=== PATIENT | female | born 1930 | race Caucasian/White ===

== ENCOUNTER 2016-09-03 10:36 | Inpatient (IN) | payer OTHER, MEDICARE ==
[2016-09-03] VITALS (11 sets, daily range): BP systolic 98–135; BP diastolic 56–85; PULSE 74–105; RESP 16–20; TEMP 97.4–98; O2SAT 89–97
[~2016-09-03] VITALS: Ht 177.8 cm; Wt 120.0 kg
[~2016-09-03 10:36] MED LIST: ATOR20TA42 PO; BISA10R PR; LEVA750T PO; LEVE500 PO; MECL-62 PO; MIRTA15 PO; WARF2 PO; Z.0.OXYGENDME NC; Z.0.WALKERFRONT
--- NOTE | 2016-09-03 11:13 | PD ---
HPI Chief Complaint: Injury Time Seen by Provider: 10:56 Travel History International Travel<30 days: No Contact w/Intl Traveler<30days: No Traveled to known affect area: No History of Present Illness HPI 85-year-old female complains of right arm pain and right anterior chest wall pain. Patient fell a week ago. Patient status post mechanical aortic valve replacement. Patient is on Coumadin. Patient has persistent pain in the right arm since then. Patient noticed some bruising on the right anterior chest wall however has increasing swelling for the past 2 days. Patient denies any shortness of breath. Patient denies any headache. Patient denies any neck pain. Patient denies any abdominal pain. Patient denies any focal weakness or numbness of extremity. Patient was started on Cefdinir 300 mg twice a day for the past 4 days for an upper respiratory infection. Patient denies any fever chills. EMS was called this morning. Patient was found to have expiratory wheezes. Patient was given albuterol treatment 2 and Solu-Medrol [address] to the ED. PFSH Past Medical History Hx Anticoagulant Therapy: Yes (WARFARIN) Arthritis: Yes Asthma: No Autoimmune Disease: No Blood Disorders: No Anxiety: No Depression: No Heart Rhythm Problems: No Cancer: No Cardiac Catheterization: Yes Cardiovascular Problems: Yes (HEART VALVE REPLACEMENT) High Cholesterol: No Chemotherapy: No Chest Pain: No Congestive Heart Failure: No COPD: No Cerebrovascular Accident: Yes (TIA) Dementia: Yes Diabetes: No Diminished Hearing: No Endocrine: No Gastrointestinal Disorders: No GERD: No Glaucoma: No Genitourinary: No Headaches: Yes (OCCASIONALY) Hepatitis: No Hiatal Hernia: No Hypertension: No Immune Disorder: No Implanted Vascular Access Dvce: No Kidney Stones: No Musculoskeletal: Yes Neurologic: Yes Psychiatric: No Reproductive: No Respiratory: Yes Migraines: No Myocardial Infarction: No Radiation Therapy: No Renal Failure: No Seizures: No Sickle Cell Disease: No Sleep Apnea: No Thyroid Disease: No Ulcer: No Tetanus Vaccination: Unknown Influenza Vaccination: Yes ?: Not Menopausal: Yes : 1 Para: 1 Past Surgical History Abdominal Surgery: No AICD: No Appendectomy: Yes Arteriovenous Shunt: No Cardiac Surgery: Yes (HEART VALVE REPLACEMENT) Cholecystectomy: No Ear Surgery: No Endocrine Surgery: No Eye Surgery: No Genitourinary Surgery: No Gynecologic Surgery: No Insulin Pump: No Joint Replacement: No Oral Surgery: No Pacemaker: No Thoracic Surgery: No Valve Replacement: Yes Other Surgery: Yes Social History Alcohol Use: No Tobacco Use: No Substance Use: No Allergies-Medications (Allergen,Severity, Reaction): Coded Allergies: No Known Allergies (Verified , 01/02/16) Reported Meds & Prescriptions Reported Meds & Active Scripts Active Reported Keppra (Levetiracetam) 500 Mg Tab 500 Mg PO BID Meclizine 25 (Meclizine HCl) 25 Mg Tab 25 Mg PO TID PRN Mirtazapine 7.5 Mg Tab 7.5 Mg PO HS Coumadin (Warfarin) 2 Mg Tab 2 Mg PO DAILY@1600 Cefdinir 300 Mg Cap 300 Mg PO Q12HR Gabapentin 300 Mg Cap 300 Mg PO HS Review of Systems General / Constitutional: No: Fever Eyes: No: Visual changes HENT: No: Headaches Cardiovascular: No: Chest Pain or Discomfort Respiratory: No: Shortness of Breath Gastrointestinal: No: Abdominal Pain Genitourinary: No: Dysuria Musculoskeletal: Positive: Pain Skin: No Rash Neurologic: No: Weakness Psychiatric: No: Depression Endocrine: No: Polydipsia Hematologic/Lymphatic: No: Easy Bruising Physical Exam Narrative GENERAL: Well-nourished, well-developed patient. SKIN: Warm and dry. HEAD: Normocephalic. EYES: No scleral icterus. No injection or drainage. NECK: Supple, trachea midline. No JVD or lymphadenopathy. CARDIOVASCULAR: Regular rate and rhythm without murmurs, gallops, or rubs. RESPIRATORY: Breath sounds equal bilaterally. No accessory muscle use. Patient has mild expiratory wheezes bilaterally. GASTROINTESTINAL: Abdomen soft, non-tender, nondistended. MUSCULOSKELETAL: Patient has ecchymosis with soft tissue swelling right anterior chest wall. No crepitus no deformity noted. Breath sounds equal bilaterally. BACK: Nontender without obvious deformity. No CVA tenderness. Neurologic exam: Patient's awake and alert oriented to name. Patient has decrease in range of motion of the right arm secondary to pain. No obvious local neurological deficit otherwise. Data Data Last Documented VS Vital Signs Date Time Temp Pulse Resp B/P Pulse Ox O2 Delivery O2 Flow Rate FiO2 09/03/16 11:30 95 Nasal Cannula 2 09/03/16 10:57 97.4 95 20 135/59 Orders Electrocardiogram (09/03/16 11:03) Complete Blood Count With Diff (09/03/16 11:03) Comprehensive Metabolic Panel (09/03/16 11:03) Prothrombin Time / Inr (Pt) (09/03/16 11:03) Act Partial Throm Time (Ptt) (09/03/16 11:03) Urinalysis - C+S If Indicated (09/03/16 11:03) Cath For Specimen (09/03/16 11:03) Chest, Single Ap (09/03/16 11:03) Iv Access Insert/Monitor (09/03/16 11:03) Ecg Monitoring (09/03/16 11:03) Oximetry (09/03/16 11:03) Forearm (2vws) (09/03/16 11:03) Humerus (Min 2vws) (09/03/16 11:03) Ct Thorax/ Chest Wo Iv Contras (09/03/16 11:03) Phytonadione Inj (Vitamin K Inj) (09/03/16 12:15) Sodium Chlor 0.9% 1000 Ml Inj (Ns 1000 M (09/03/16 12:30) Labs Laboratory Tests Test 09/03/16 09/03/16 11:15 11:45 White Blood Count 13.7 TH/MM3 Red Blood Count 3.00 MIL/MM3 Hemoglobin 8.3 GM/DL Hematocrit 25.7 % Mean Corpuscular Volume 85.5 FL Mean Corpuscular Hemoglobin 27.7 PG Mean Corpuscular Hemoglobin 32.4 % Concent Red Cell Distribution Width 14.1 % Platelet Count 299 TH/MM3 Mean Platelet Volume 9.8 FL Neutrophils (%) (Auto) 89.3 % Lymphocytes (%) (Auto) 5.0 % Monocytes (%) (Auto) 5.3 % Eosinophils (%) (Auto) 0.0 % Basophils (%) (Auto) 0.4 % Neutrophils # (Auto) 12.3 TH/MM3 Lymphocytes # (Auto) 0.7 TH/MM3 Monocytes # (Auto) 0.7 TH/MM3 Eosinophils # (Auto) 0.0 TH/MM3 Basophils # (Auto) 0.1 TH/MM3 CBC Comment DIFF FINAL Differential Comment Prothrombin Time 129.2 SEC Prothromb Time International 10.6 RATIO Ratio Activated Partial 70.6 SEC Thromboplast Time Sodium Level 135 MEQ/L Potassium Level 3.8 MEQ/L Chloride Level 98 MEQ/L Carbon Dioxide Level 25.2 MEQ/L Anion Gap 12 MEQ/L Blood Urea Nitrogen 41 MG/DL Creatinine 1.96 MG/DL Estimat Glomerular Filtration 24 ML/MIN Rate Random Glucose 203 MG/DL Calcium Level 7.7 MG/DL Total Bilirubin 0.6 MG/DL Aspartate Amino Transf 40 U/L (AST/SGOT) Alanine Aminotransferase 32 U/L (ALT/SGPT) Alkaline Phosphatase 69 U/L Total Protein 6.8 GM/DL Albumin 2.6 GM/DL Urine Color YELLOW Urine Turbidity HAZY Urine pH 5.0 Urine Specific [place] 1.024 Urine Protein TRACE mg/dL Urine Glucose (UA) NEG mg/dL Urine Ketones NEG mg/dL Urine Occult Blood SMALL Urine Nitrite NEG Urine Bilirubin NEG Urine Urobilinogen LESS THAN 2.0 MG/DL Urine Leukocyte Esterase NEG Urine RBC 2 /hpf Urine WBC LESS THAN 1 /hpf Urine Squamous Epithelial <1 /hpf Cells Urine Bacteria RARE /hpf Urine Hyaline Casts 1 /lpf Urine Mucus FEW /lpf Microscopic Urinalysis Comment CULT NOT INDICATED MDM Medical Decision Making Medical Screen Exam Complete: Yes Emergency Medical Condition: Yes Interpretation(s) 12:20 PM. Last Impressions Radius/Ulna X-Ray 09/03/161102 Signed Impressions: Service Date/Time: Saturday, September 03, 2016 11:28 - CONCLUSION: No acute bony injury Cirilo Christensen MD Humerus X-Ray 09/03/161102 Signed Impressions: Service Date/Time: Saturday, September 03, 2016 11:25 - CONCLUSION: Unremarkable examination of the right humerus. Cirilo Christensen MD Chest X-Ray 09/03/161102 Signed Impressions: Service Date/Time: Saturday, September 03, 2016 11:24 - CONCLUSION: No acute disease. Orville Dominguez Jr., MD 12:21 PM. CBC WBC 13.7. Hemoglobin 8.3 hematocrit 25.7. 89 neutrophil. Sodium 135. BUN 41. Creatinine 1.96. GFR 24. Glucose 203. Calcium 7.7. INR 10.6. UA is negative. Last Impressions Radius/Ulna X-Ray 09/03/161102 Signed Impressions: Service Date/Time: Saturday, September 03, 2016 11:28 - CONCLUSION: No acute bony injury Cirilo Christensen MD Humerus X-Ray 09/03/161102 Signed Impressions: Service Date/Time: Saturday, September 03, 2016 11:25 - CONCLUSION: Unremarkable examination of the right humerus. Cirilo Christensen MD Chest X-Ray 09/03/161102 Signed Impressions: Service Date/Time: Saturday, September 03, 2016 11:24 - CONCLUSION: No acute disease. Orville Dominguez Jr., MD Chest CT 09/03/161102 Signed Impressions: Service Date/Time: Saturday, September 03, 2016 12:39 - CONCLUSION: Large right breast/chest wall mass may simply be large hematoma, however underlying neoplastic process should additionally be considered and either close clinical and mammographic followup or additional short-term evaluation with pre-and postcontrast MRI may be beneficial. 5.7 cm aneurysm of the ascending thoracic aorta. Ganga Michael MD Differential Diagnosis Differential diagnosis including contusion, fracture, dislocation, hematoma, hemopneumothorax. Narrative Course 85-year-old female with right arm injury and anterior wall injury status post fall. Patient is on Coumadin. Vitamin K 10 mg subcutaneous given. Diagnosis Primary Impression: Coumadin toxicity Qualified Code: T45.511A - Coumadin toxicity, accidental or unintentional, initial encounter Additional Impressions: Chest wall hematoma Qualified Code: S20.211A - Chest wall hematoma, right, initial encounter Contusion of right arm Qualified Code: S40.021A - Contusion of right arm, initial encounter Renal insufficiency Admitting Information Admitting Physician Requests: Admit Chintan Arechiga MD Sep 03, 2016 11:13
[2016-09-03 11:24] LABS: AUTOMATED NEUTROPHIL # 12.3 TH/MM3 (1.8-7.7); BASOPHIL # 0.1 TH/MM3 (0-0.2); BASOPHIL % 0.4 % (0.0-2.0); HEMATOCRIT 25.7 % (35.0-46.0); HEMO FLAGS DIFF FINAL; LYMPHOCYTE # 0.7 TH/MM3 (1.0-4.8); MEAN CELL VOLUME 85.5 FL (80.0-100.0); MEAN CORPUSCULAR HEMOGLOBIN 27.7 PG (27.0-34.0); MEAN CORPUSCULAR HGB CONC 32.4 % (32.0-36.0); MONO % 5.3 % (0.0-8.0); NEUT % 89.3 % (16.0-70.0); PLATELET COUNT 299 TH/MM3 (150-450); RED CELL DISTRIBUTION WIDTH 14.1 % (11.6-17.2); WHITE BLOOD COUNT 13.7 TH/MM3 (4.0-11.0)
--- NOTE | 2016-09-03 11:37 | RADRPT ---
EXAM DATE/TIME: 09/03/2016 11:24 [facility] COMPARISON: CHEST SINGLE AP, January 05, 2016, 9:38. INDICATIONS : Fell 2 weeks ago, bruising and swelling right breast. MEDICAL HISTORY : Myocardial infarction. SURGICAL HISTORY : CABG. ENCOUNTER: Initial ACUITY: 2 weeks PAIN SCORE: 10/10 LOCATION: Right chest FINDINGS: A single view of the chest demonstrates the lungs to be symmetrically aerated without evidence of mas s, infiltrate or effusion. The heart is at the upper limits of normal in terms of size. New sternotom y wires noted. CONCLUSION: No acute disease. Orville Dominguez Jr., MD on September 03, 2016 at 11:35 Board Certified Radiologist. This report was verified electronically.
[2016-09-03 11:41] LABS: ANION GAP 12 MEQ/L (5-15); AST (GOT) 40 U/L (15-37); BICARBONATE 25.2 MEQ/L (21.0-32.0); BLOOD UREA NITROGEN 41 MG/DL (7-18); CHLORIDE 98 MEQ/L (98-107); GLOMERULAR FILTRATION RATE 24 ML/MIN (>89); POTASSIUM 3.8 MEQ/L (3.5-5.1); SODIUM (NA) 135 MEQ/L (136-145)
[2016-09-03 11:44] LABS: ALKALINE PHOSPHATASE 69 U/L (45-117); ALT (GPT) 32 U/L (10-53); TOTAL BILIRUBIN ADULT 0.6 MG/DL (0.2-1.0)
[2016-09-03 11:51] LABS: PROTHROMBIN TIME - PATIENT 129.2 SEC (9.8-11.6)
--- NOTE | 2016-09-03 11:51 | RADRPT ---
EXAM DATE/TIME: 09/03/2016 11:28 [facility] COMPARISON: No previous studies available for comparison. INDICATIONS : Fell 2 wks ago pain with rotation right forearm. Unable to remove bracelets do not fit over patients hand. MEDICAL HISTORY : None. SURGICAL HISTORY : None. ENCOUNTER: Initial ACUITY: 2 weeks PAIN SCORE: 8/10 LOCATION: Right forearm FINDINGS: Two view examination of the right forearm demonstrates no evidence of fracture or dislocation. Bony mineralization is normal. The soft tissue structures are intact. CONCLUSION: No acute bony injury Cirilo Christensen MD on September 03, 2016 at 11:49 Board Certified Radiologist. This report was verified electronically.
--- NOTE | 2016-09-03 11:51 | RADRPT ---
EXAM DATE/TIME: 09/03/2016 11:25 [facility] COMPARISON: No previous studies available for comparison. INDICATIONS : Fell 2 wks ago, pain right shoulder, with bruising. MEDICAL HISTORY : None. SURGICAL HISTORY : None. ENCOUNTER: Initial ACUITY: 2 weeks PAIN SCORE: 8/10 LOCATION: Right humerus. FINDINGS: Two view examination of the right humerus demonstrates no evidence of fracture or dislocation. Bony mineralization is normal. The soft tissue structures are intact. CONCLUSION: Unremarkable examination of the right humerus. Cirilo Christensen MD on September 03, 2016 at 11:50 Board Certified Radiologist. This report was verified electronically.
[2016-09-03 12:07] LABS: INTERNATIONAL NORMALIZED RATIO 10.6 RATIO
[2016-09-03 12:08] LABS: APTT (PATIENT) 70.6 SEC (24.3-30.1)
[2016-09-03 12:09] LABS: BACTERIA, URINE RARE /hpf; BLOOD, URINE SMALL (NEG); COMMENT (UR) CULT NOT INDICATED; CULTURE IF INDICATED CULT NOT INDICATED; GLUCOSE,URINE NEG (NEG); HYALINE CAST, URINE 1 /lpf (RARE); KETONE, URINE NEG (NEG); MUCUS URINE FEW /lpf (OCC); NITRITE,URINE NEG (NEG); SQUAMOUS EPITHELIAL CELL URINE <1 /hpf (0-5); URINE COLOR YELLOW (YELLW/STRAW)
[2016-09-03] MEDS ORDERED: PHYTONADIONE 10 MG/ML VIAL SQ ONE (12:15)
[2016-09-03] MEDS ORDERED: SODIUM CHLOR 0.9% 1000 ML INJ 1,000 ML IV SCH (12:30)
--- NOTE | 2016-09-03 13:13 | RADRPT ---
EXAM DATE/TIME: 09/03/2016 12:39 [facility] COMPARISON: No previous studies available for comparison. INDICATIONS : Trauma, fell 1 week ago. Bruising and swelling on right chest. RADIATION DOSE: 5.31 CTDIvol (mGy) MEDICAL HISTORY : Cardiovascular disease. Stroke Dementia. SURGICAL HISTORY : None. ENCOUNTER: Initial ACUITY: 1 day PAIN SCALE: 7/10 LOCATION: Right chest TECHNIQUE: Volumetric scanning of the chest was performed. Using automated exposure control and adjustment of t he mA and/or kV according to patient size, radiation dose was kept as low as reasonably achievable to obtain optimal diagnostic quality images. FINDINGS: There is an enormous mass in the right breast abutting the anterior chest wall and appearing to displ mandy the pectoralis musculature anteriorly. The mass measures 17 x 8 x 15 cm (sagittal x AP x transver se). Internal density is markedly heterogeneous. There do appear to be some areas of density layering which would be consistent with hematoma. The surrounding soft tissues are moderately indurated throu ghout the right chest and into the visualized upper abdomen and flank. There is no evidence of rib fr acture or chest wall destructive change. The contralateral left breast is unremarkable. In the lungs, occasional reticular parenchymal density and tree in bud densities present, mainly in t he right middle lobe which is likely inflammatory infiltrate. The ascending thoracic aorta is aneurysmal to 5.7 cm. No mediastinal mass is noted. In the visualized upper abdomen, a gallstone is present in a distended gallbladder. CONCLUSION: Large right breast/chest wall mass may simply be large hematoma, however underlying neoplastic proces s should additionally be considered and either close clinical and mammographic followup or additional short-term evaluation with pre-and postcontrast MRI may be beneficial. 5.7 cm aneurysm of the ascending thoracic aorta. Ganga Michael MD on September 03, 2016 at 13:00 Board Certified Radiologist. This report was verified electronically.
[2016-09-03] MEDS ORDERED: CEFD300C PO (13:23)
[2016-09-03] MEDS ORDERED: GABA300C5 PO (13:23)
[2016-09-03] MEDS ORDERED: COUM2TAB PO (13:25)
[2016-09-03] MEDS ORDERED: MIRT1TAB PO (13:25)
[2016-09-03] MEDS ORDERED: MECL1TAB42 PO (13:25)
[2016-09-03] MEDS ORDERED: LEVE500 PO (13:25)
--- NOTE | 2016-09-03 14:12 | HHI.HP ---
[facility] Ad[facility] Diagnosis Coumadin toxicity. Chest wall hematoma. Renal sufficiency. Diagnoses: (1) Supratherapeutic INR (2) Coumadin toxicity (3) History of mechanical aortic valve replacement (4) Chest wall hematoma (5) Contusion of right arm (6) Acute renal failure (7) Anemia due to acute blood loss Chief Complaint: Right arm pain, chest wall pain Travel History International Travel<30 Days: No Contact w/Intl Traveler <30 Da: No Traveled to Known Affected Are: No History of Present Illness The patient is an 85-year-old female who states that she fell at home 2-3 weeks ago. She has developed significant bruising and swelling of the right chest wall. This area is tender to palpation. She has been on antibiotics for the last few days for an upper respiratory infection. She denies fever, chills, night sweats. Has had cough that is productive. Denies dyspnea. She has not noted any bleeding. Review of Systems Constitutional: DENIES: Fever, Chills, Night Sweats Eyes: DENIES: Blurred vision, Vision loss Ears, nose, mouth, throat: DENIES: Hearing loss Respiratory: COMPLAINS OF: Cough, Wheezing, Sputum production, DENIES: Shortness of breath Cardiovascular: COMPLAINS OF: Chest pain (tenderness of chest wall), DENIES: Palpitations, Dyspnea on Exertion, Lower Extremity Edema Gastrointestinal: DENIES: Abdominal pain, Constipation, Diarrhea, Nausea, Vomiting Genitourinary: DENIES: Urinary frequency, Urinary incontinence, Urgency, Hematuria, Dysuria, Nocturia Musculoskeletal: DENIES: Joint pain, Muscle aches Integumentary: DENIES: Pruritus, Rash Hematologic/lymphatic: COMPLAINS OF: Bruising Neurologic: DENIES: Headache Past Family Social History Past Medical History Osteoarthritis History of TIA Aortic valve replacement (mechanical valve) History of diastolic congestive heart failure Hyperlipidemia Seizure disorder Coronary artery disease Past Surgical History Aortic valve replacement (mechanical valve) Reported Medications Keppra (Levetiracetam) 500 Mg Tab 500 Mg PO BID Meclizine 25 (Meclizine HCl) 25 Mg Tab 25 Mg PO TID PRN Mirtazapine 7.5 Mg Tab 7.5 Mg PO HS Coumadin (Warfarin) 2 Mg Tab 2 Mg PO DAILY@1600 Cefdinir 300 Mg Cap 300 Mg PO Q12HR Gabapentin 300 Mg Cap 300 Mg PO HS Allergies: Coded Allergies: No Known Allergies (Verified , 01/02/16) Family History Patient denies significant family history. Social History Denies alcohol, tobacco, or illicit drug use. Physical Exam Vital Signs Vital Signs Date Time Temp Pulse Resp B/P Pulse Ox O2 Delivery O2 Flow Rate FiO2 09/03/16 11:30 95 Nasal Cannula 2 09/03/16 10:57 97.4 95 20 135/59 94 Nasal Cannula 2 09/03/16 10:57 99 20 94 Nasal Cannula 2 09/03/16 10:49 97.4 99 20 130/60 89 Physical Exam The patient was examined in the presence of the nurse. GENERAL: Elderly female in no acute distress. HEENT: Normocephalic, atraumatic. Pupils equal, round and reactive. Extraocular movements intact. No scleral icterus. No injection or drainage. Oropharynx is clear. Mucous membranes are moist. CARDIOVASCULAR: Regular rate and rhythm. RESPIRATORY: Clear to auscultation. No wheezes, rales, or rhonchi. Breathing is non-labored. GASTROINTESTINAL: Abdomen soft, non-tender, nondistended. EXTREMITIES: No lower extremity edema. No calf tenderness. PSYCH: Alert and oriented x 3. CHEST WALL: Significant swelling and ecchymosis of the right chest wall and right breast. Laboratory Laboratory Tests Test 09/03/16 09/03/16 11:15 11:45 White Blood Count 13.7 Red Blood Count 3.00 Hemoglobin 8.3 Hematocrit 25.7 Mean Corpuscular Volume 85.5 Mean Corpuscular Hemoglobin 27.7 Mean Corpuscular Hemoglobin 32.4 Concent Red Cell Distribution Width 14.1 Platelet Count 299 Mean Platelet Volume 9.8 Neutrophils (%) (Auto) 89.3 Lymphocytes (%) (Auto) 5.0 Monocytes (%) (Auto) 5.3 Eosinophils (%) (Auto) 0.0 Basophils (%) (Auto) 0.4 Neutrophils # (Auto) 12.3 Lymphocytes # (Auto) 0.7 Monocytes # (Auto) 0.7 Eosinophils # (Auto) 0.0 Basophils # (Auto) 0.1 CBC Comment DIFF FINAL Differential Comment Prothrombin Time 129.2 Prothromb Time International 10.6 Ratio Activated Partial 70.6 Thromboplast Time Sodium Level 135 Potassium Level 3.8 Chloride Level 98 Carbon Dioxide Level 25.2 Anion Gap 12 Blood Urea Nitrogen 41 Creatinine 1.96 Estimat Glomerular Filtration 24 Rate Random Glucose 203 Calcium Level 7.7 Total Bilirubin 0.6 Aspartate Amino Transf 40 (AST/SGOT) Alanine Aminotransferase 32 (ALT/SGPT) Alkaline Phosphatase 69 Total Protein 6.8 Albumin 2.6 Urine Color YELLOW Urine Turbidity HAZY Urine pH 5.0 Urine Specific [place] 1.024 Urine Protein TRACE Urine Glucose (UA) NEG Urine Ketones NEG Urine Occult Blood SMALL Urine Nitrite NEG Urine Bilirubin NEG Urine Urobilinogen LESS THAN 2.0 Urine Leukocyte Esterase NEG Urine RBC 2 Urine WBC LESS THAN 1 Urine Squamous Epithelial <1 Cells Urine Bacteria RARE Urine Hyaline Casts 1 Urine Mucus FEW Microscopic Urinalysis Comment CULT NOT INDICATED Result Diagram: 09/03/16 1115 09/03/16 1115 Imaging Last Impressions Radius/Ulna X-Ray 09/03/16 1103 Signed Impressions: Service Date/Time: Saturday, September 03, 2016 11:28 - CONCLUSION: No acute bony injury Cirilo Christensen MD Humerus X-Ray 09/03/16 1103 Signed Impressions: Service Date/Time: Saturday, September 03, 2016 11:25 - CONCLUSION: Unremarkable examination of the right humerus. Cirilo Christensen MD Chest X-Ray 09/03/16 1103 Signed Impressions: Service Date/Time: Saturday, September 03, 2016 11:24 - CONCLUSION: No acute disease. Orville Dominguez Jr., MD Chest CT 09/03/16 1103 Signed Impressions: Service Date/Time: Saturday, September 03, 2016 12:39 - CONCLUSION: Large right breast/chest wall mass may simply be large hematoma, however underlying neoplastic process should additionally be considered and either close clinical and mammographic followup or additional short-term evaluation with pre-and postcontrast MRI may be beneficial. 5.7 cm aneurysm of the ascending thoracic aorta. Ganga Michael MD Assessment and Plan Assessment and Plan 1. Fall with right arm contusion, chest wall hematoma: Continue pain control, supportive care. Large hematoma seen on CT. Per radiology, underlying neoplastic process cannot be ruled out at this time. Would benefit from pre-and postcontrast MRI. 2. Coumadin toxicity: INR is significantly elevated. Patient was given vitamin K in the ER. Monitor INR. Hold Coumadin. Patient is on Coumadin for mechanical aortic valve. 3. Seizure disorder: Continue Keppra. 4. Thoracic aortic aneurysm: Consult vascular surgery. 5. History of diastolic congestive heart failure: Currently asymptomatic. 6. Acute renal failure: We'll give gentle IV fluid hydration, using caution secondary to patient's history of CHF. Monitor BUN and creatinine. 7. DVT prophylaxis: INR is supratherapeutic. Code Status Full code Problem Qualifiers (1) Coumadin toxicity: Qualified Code: T45.511A - Coumadin toxicity, accidental or unintentional, initial encounter (2) Chest wall hematoma: Qualified Code: S20.211A - Chest wall hematoma, right, initial encounter (3) Contusion of right arm: Qualified Code: S40.021A - Contusion of right arm, initial encounter Theron Spain MD Sep 03, 2016 14:12
[2016-09-03] MEDS ORDERED: NALOXONE HCL 0.4 MG/ML AMP IV PRN (14:30)
[2016-09-03] MEDS ORDERED: MECLIZINE HCL 25 MG TAB PO PRN (14:30)
[2016-09-03] MEDS ORDERED: ACETAMINOPHEN 325 MG TAB PO PRN (14:30)
[2016-09-03] MEDS ORDERED: MAGNESIUM HYDROXIDE SUSP 30 ML CUP PO PRN (14:30)
[2016-09-03] MEDS ORDERED: ONDANSETRON HCL 4 MG/2 ML VIAL IVP PRN (14:30)
[2016-09-03] MEDS: ACETAMINOPHEN/HYDROcodone 325 MG/7.5 MG TAB PO PRN (15:37)
[2016-09-03] MEDS: RESP: ALBUTEROL 2.5 MG/IPRATROPIUM 0.5 MG NEB (SCH) NEB ×2 (15:41→19:53)
[2016-09-03] MEDS: NS + KCL 20 MEQ INJ 1,000 ML IV SCH (16:46)
[2016-09-03 20:57] LABS: HEMATOCRIT 20.1 % (35.0-46.0); REVIEW FLAG FINAL
[2016-09-03] MEDS: GABAPENTIN 300 MG CAP PO SCH (21:11)
[2016-09-03] MEDS: MIRTAZAPINE 15 MG TAB PO SCH (21:12)
[2016-09-03] MEDS: ACETAMINOPHEN/HYDROcodone 325 MG/5 MG TAB PO PRN (21:12)
[2016-09-03] MEDS: levETIRAcetam 500 MG TAB PO SCH (21:12)
[2016-09-03] MEDS ORDERED: FUROSEMIDE 20 MG/2 ML VIAL IV PUSH PRN (21:15)
[2016-09-04] VITALS (27 sets, daily range): BP systolic 114–152; BP diastolic 56–74; PULSE 90–107; RESP 14–20; TEMP 97.2–98.8; O2SAT 92–98
--- NOTE | 2016-09-04 08:00 | HHI.PR ---
Subjective Remarks Follow up hematoma, anemia, coagulopathy. The patient is still reporting pain over the right chest wall. No lightheadedness, dizziness, shortness of breath. Objective Vitals Vital Signs Date Time Temp Pulse Resp B/P Pulse Ox O2 Delivery O2 Flow Rate FiO2 09/04/16 07:40 97.7 96 20 152/71 96 09/04/16 07:09 97.8 94 18 126/64 96 09/04/16 07:08 97.8 94 18 126/64 96 09/04/16 05:39 97.4 97 18 139/67 98 09/04/16 05:38 97.4 97 18 139/67 98 09/04/16 04:35 97.6 97 18 137/63 98 09/04/16 04:34 97.6 97 18 137/63 98 09/04/16 04:17 98.0 97 17 137/62 97 09/04/16 04:17 98.0 97 17 137/62 96 09/04/16 04:00 97.7 104 17 134/61 95 09/04/16 04:00 97.7 104 17 134/61 95 09/04/16 03:44 98.2 95 18 132/66 09/04/16 03:42 98.2 95 18 132/66 96 09/04/16 03:20 98.2 95 18 132/66 96 09/04/16 03:19 98.2 95 18 132/66 96 09/04/16 01:45 97.2 99 16 129/69 98 09/04/16 01:45 97.2 99 16 129/69 98 09/04/16 00:42 98.1 102 17 139/70 98 09/04/16 00:41 98.1 102 17 139/70 98 09/04/16 00:32 98.8 101 18 140/66 97 09/04/16 00:26 97.8 101 18 144/64 96 09/04/16 00:25 97.8 101 18 144/64 96 09/04/16 00:12 97.5 107 18 124/74 96 09/04/16 00:11 97.5 107 18 124/74 96 09/03/16 23:59 98.0 104 18 130/68 96 09/03/16 23:57 98.0 104 18 130/68 96 09/03/16 22:20 104 2/20/17 21:40 97.8 74 16 98/56 97 09/03/16 19:53 96 Nasal Cannula 2.00 09/03/16 16:52 104 20 112/73 97 Nasal Cannula 2 09/03/16 16:46 18 09/03/16 15:35 97 Nasal Cannula 3.00 09/03/16 14:12 105 20 121/85 96 Nasal Cannula 2 09/03/16 11:30 95 Nasal Cannula 2 09/03/16 10:57 97.4 95 20 135/59 94 Nasal Cannula 2 09/03/16 10:57 99 20 94 Nasal Cannula 2 09/03/16 10:49 97.4 99 20 130/60 89 I/O 09/03/16 09/03/16 09/03/16 09/04/16 09/04/16 09/04/16 07:00 15:00 23:00 07:00 15:00 23:00 Intake Total 510 ml Balance 510 ml Intake IV Total 10 ml Packed Cells 500 ml Result Diagram: 09/03/16193909/03/16 1115 Imaging Last Impressions Radius/Ulna X-Ray 09/03/16 1103 Signed Impressions: Service Date/Time: Saturday, September 03, 2016 11:28 - CONCLUSION: No acute bony injury Cirilo Christensen MD Humerus X-Ray 09/03/16 1103 Signed Impressions: Service Date/Time: Saturday, September 03, 2016 11:25 - CONCLUSION: Unremarkable examination of the right humerus. Cirilo Christensen MD Chest X-Ray 09/03/16 1103 Signed Impressions: Service Date/Time: Saturday, September 03, 2016 11:24 - CONCLUSION: No acute disease. Orville Dominguez Jr., MD Chest CT 09/03/16 1103 Signed Impressions: Service Date/Time: Saturday, September 03, 2016 12:39 - CONCLUSION: Large right breast/chest wall mass may simply be large hematoma, however underlying neoplastic process should additionally be considered and either close clinical and mammographic followup or additional short-term evaluation with pre-and postcontrast MRI may be beneficial. 5.7 cm aneurysm of the ascending thoracic aorta. Ganga Michael MD Objective Remarks General: No acute distress. Heart: Regular rate and rhythm. No murmur. Lungs: Clear to auscultation bilaterally. No wheezes, rales, or rhonchi. Breathing is nonlabored. Abdomen: Soft, nontender, nondistended. Extremities: No lower extremity edema. Psych: Alert and oriented. Procedures None Urinary Catheter: No Vascular Central Line Catheter: No A/P Problem List: (1) Supratherapeutic INR ICD Code: R79.1 Status: Resolved (2) Coumadin toxicity ICD Code: T45.511A Status: Acute (3) History of mechanical aortic valve replacement ICD Code: Z95.2 Status: Chronic (4) Chest wall hematoma ICD Code: S20.219A Status: Acute (5) Contusion of right arm ICD Code: S40.021A Status: Acute (6) Acute renal failure ICD Code: N17.9 Status: Acute (7) Anemia due to acute blood loss ICD Code: D62 Status: Acute Assessment and Plan 1. Fall with right arm contusion, chest wall hematoma: Continue pain control, supportive care. Large hematoma seen on CT. Per radiology, underlying neoplastic process cannot be ruled out at this time. Would benefit from pre-and postcontrast MRI, which will be ordered once renal function is improved. 2. Coumadin toxicity: INR is significantly elevated. Patient was given vitamin K in the ER. Monitor INR. Hold Coumadin. Patient is on Coumadin for mechanical aortic valve. Repeat labs are pending this morning. 3. Seizure disorder: Continue Keppra. 4. Thoracic aortic aneurysm: Consult cardiothoracic surgery. 5. History of diastolic congestive heart failure: Currently asymptomatic. 6. Acute renal failure: We'll give gentle IV fluid hydration, using caution secondary to patient's history of CHF. Monitor BUN and creatinine. Labs are pending. 7. DVT prophylaxis: INR is supratherapeutic. 8. Anemia secondary to acute blood loss: HEENT: Decrease significantly yesterday. Repeat labs are pending this morning. Status post transfusion of 2 units PRBCs. 9. CODE STATUS: Full code. Problem Qualifiers (1) Coumadin toxicity: Qualified Code: T45.511A - Coumadin toxicity, accidental or unintentional, initial encounter (2) Chest wall hematoma: Qualified Code: S20.211A - Chest wall hematoma, right, initial encounter (3) Contusion of right arm: Qualified Code: S40.021A - Contusion of right arm, initial encounter Stoverink,Theron D. MD Sep 04, 2016 08:00
[2016-09-04] MEDS: RESP: ALBUTEROL 2.5 MG/IPRATROPIUM 0.5 MG NEB (SCH) NEB ×4 (08:10→20:00)
[2016-09-04 08:21] LABS: AUTOMATED NEUTROPHIL # 14.4 TH/MM3 (1.8-7.7); BASOPHIL # 0.1 TH/MM3 (0-0.2); BASOPHIL % 0.4 % (0.0-2.0); HEMATOCRIT 27.4 % (35.0-46.0); INTERNATIONAL NORMALIZED RATIO 3.8 RATIO; LYMPH % 5.3 % (9.0-44.0); LYMPHOCYTE # 0.9 TH/MM3 (1.0-4.8); MEAN CELL VOLUME 86.8 FL (80.0-100.0); MEAN CORPUSCULAR HEMOGLOBIN 29.1 PG (27.0-34.0); MEAN CORPUSCULAR HGB CONC 33.5 % (32.0-36.0); MONO % 10.9 % (0.0-8.0); NEUT % 83.4 % (16.0-70.0); PLATELET COUNT 312 TH/MM3 (150-450); PROTHROMBIN TIME - PATIENT 45.1 SEC (9.8-11.6); RED BLOOD COUNT 3.16 MIL/MM3 (4.00-5.30); RED CELL DISTRIBUTION WIDTH 13.7 % (11.6-17.2); WHITE BLOOD COUNT 17.3 TH/MM3 (4.0-11.0)
[2016-09-04 08:26] LABS: HEMO FLAGS AUTO DIFF
[2016-09-04 08:42] LABS: ALKALINE PHOSPHATASE 54 U/L (45-117); ALT (GPT) 25 U/L (10-53); ANION GAP 6 MEQ/L (5-15); AST (GOT) 25 U/L (15-37); BICARBONATE 30.5 MEQ/L (21.0-32.0); BLOOD UREA NITROGEN 50 MG/DL (7-18); CHLORIDE 100 MEQ/L (98-107); GLOMERULAR FILTRATION RATE 38 ML/MIN (>89); POTASSIUM 4.5 MEQ/L (3.5-5.1); SODIUM (NA) 136 MEQ/L (136-145); TOTAL BILIRUBIN ADULT 1.4 MG/DL (0.2-1.0)
[2016-09-04] MEDS: levETIRAcetam 500 MG TAB PO SCH ×2 (08:44→23:57)
[2016-09-04 09:14] LABS: BANDS 9 % (0-6); METAMYELOCYTES 2 % (0-1); NEUTROPHIL # MANUAL DIFF 15.6 TH/MM3 (1.8-7.7); POLYS (SEG NEUTROPHILS) 79 % (16-70); WBC DIFF SAMPLE 100
[2016-09-04 09:16] LABS: PLATELET ESTIMATE SMEAR NORMAL (NORMAL); PLATELET MORPHOLOGY NORMAL (NORMAL); SCAN/DIFF FINAL DIFF MANUAL
[2016-09-04] MEDS ORDERED: ETOMIDATE 20 MG/10 ML VIAL IV PUSH ONE (10:25)
[2016-09-04] MEDS ORDERED: PHENYLEPH/NS 1000 MCG/10 ML SYR IV ONE (10:25)
[2016-09-04] MEDS ORDERED: NORMOSOL R INJ 2,000 ML IV ONE (10:25)
[2016-09-04] MEDS ORDERED: ONDANSETRON HCL 4 MG/2 ML VIAL IV PUSH ONE (10:25)
[2016-09-04] MEDS: NS + KCL 20 MEQ INJ 1,000 ML IV SCH ×2 (12:00→23:00)
--- NOTE | 2016-09-04 13:08 | MB ---
cc: OLAYINKA TORRES MD DATE OF CONSULTATION: 09/04/2016 DATE OF : 1930 HISTORY OF PRESENT ILLNESS An 85-year-old patient who apparently presented to the emergency room status post fall about a week ago, developed significant bruising and swelling of the right chest wall. She has a history of an aortic mechanical valve and has been on Coumadin. She had a super therapeutic INR of 10.6. She was given vitamin-K and her INR is now 3.8. Her CT chest showed large right breast/chest wall mass, may simply be a large hematoma, however, underlying neoplastic should be considered. Also 5.7 cm aneurysm of the ascending thoracic aorta. We were consulted to evaluate the 5.7 ascending thoracic aorta aneurysm. The patient denies any syncope. No chest pain. She has, however, had multiple falls, has been admitted in the emergency department multiple times, recently for sepsis, pneumonia back in December, history of super therapeutic INRs. PAST MEDICAL HISTORY 1. Osteoarthritis. 2. History of TIA. 3. Diastolic CHF. Her last echo showed an EF of 50%. She had some mild aortic stenosis. Her valve area was 1.32 cm. 4. Seizure disorder. 5. Coronary artery disease. 6. Hyperlipidemia. PAST SURGICAL HISTORY Surgeries include aortic valve replacement 27 years ago in [place], mechanical valve. ALLERGIES No known allergies. MEDICATIONS Home meds include: 1. Keppra. 2. Meclizine. 3. Mirtazapine. 4. Coumadin 2 mg daily. 5. She has recently on Ceftin. 6. Gabapentin. FAMILY HISTORY Not significant. SOCIAL HISTORY No tobacco, alcohol or illicit drugs. REVIEW OF SYSTEMS GENERAL: In general no night sweats, fever, heat or cold intolerance. SKIN: No psoriasis, itching or hives. HEENT: No blurred vision or hearing loss. RESPIRATORY: No cough or shortness of breath. CARDIOVASCULAR: No chest pain. No syncope. No paroxysmal nocturnal dyspnea. No orthopnea. GASTROINTESTINAL: No diarrhea or vomiting. GENITOURINARY: No burning frequency, urgency. SLEEP MEDICINE PHYSICIAN: Positive for history of TIA. No CVA. PHYSICAL EXAMINATION VITAL SIGNS: Blood pressure 126/60, heart rate 90, afebrile. O2 sat 97 on 2 liters. GENERAL: The patient is awake and alert. She is slightly forgetful, reorients easily. HEAD: Normocephalic, atraumatic. Pupils equal and reactive. Oral mucosa pink and moist. NECK: Supple. No JVD. HEART: Heart sounds S1, S2, positive for click. CHEST: She has very large significant swelling and ecchymosis of the right chest, right breast, also including the left lower part of the breast and the right lateral chest wall with some warmth and tenderness into the upper portion of the right breast. LABORATORY Repeat INR 3.8. Sodium 136, potassium 4.5, BUN 50, creatinine 1.32. Hemoglobin 9.2, hematocrit 27, white cell count 17, platelet count 312. Her hemoglobin was 6.7 yesterday but she received two units of packed RBCs. IMAGING CT chest as above. IMPRESSION AND RECOMMENDATIONS This is an 85-year-old female with a history of mechanical valve with extensive large breast hematoma status post fall with super therapeutic INR. Also with a noted 5.7 cm aneurysm of the ascending thoracic aorta. The patient has had no evidence of syncope or chest pain. At this time recommend just medical treatment. She needs close monitoring of her INR. Evaluate home situation since she has been admitted with frequent falls. No surgical intervention for the aneurysm due to her advanced age and high risk. Would recommend getting general surgery to evaluate the extensive right breast hematoma to avoid any possible abscess. Dictated by: TIM Guido Olayinka WRIGHT /10:46 AM /1:08 PM
[2016-09-04] MEDS: ACETAMINOPHEN/HYDROcodone 325 MG/7.5 MG TAB PO PRN (13:24)
--- NOTE | 2016-09-04 15:12 | RADRPT ---
EXAM DATE/TIME: 09/04/2016 14:35 [facility] COMPARISON: CT THORAX W/O CONTRAST, September 03, 2016, 12:39. INDICATIONS : Chest wall hematoma FINDINGS: The patient's recent chest CT documented a complex heterogeneous hematoma on the right chest wall lynda t appears deep to the pectoralis major muscle. The patient was supratherapeutic with INR greater than 10. There request was made to drain the hematoma. CONCLUSION: The complex right chest wall hematoma appears to be deep to the pectoralis major muscle. We could att empt drainage if needed clinically. Typically with a hematoma of this age and complex appearance we a re usually unsuccessful at draining a significant portion of the hematoma. However, this could be att empted if needed clinically. Findings were discussed with Dr. Spain. Ganga Patel MD on September 04, 2016 at 15:08 Board Certified Radiologist. This report was verified electronically.
[2016-09-04 15:20] LABS: HEMATOCRIT 24.1 % (35.0-46.0); REVIEW FLAG FINAL
[2016-09-04] MEDS: MORPHINE SULFATE 4 MG/ML INJ IV PUSH PRN (15:33)
[2016-09-04] MEDS ORDERED: FUROSEMIDE 20 MG/2 ML VIAL IV PUSH ONE (16:15)
--- NOTE | 2016-09-04 17:58 | MB ---
cc: PHONG SAN MD DATE OF CONSULTATION: 09/04/2016 REASON FOR CONSULTATION: History of AVR and Coumadin toxicity. HISTORY OF PRESENT ILLNESS Ms. Loera is an 85-year-old female who has history of mechanical aortic valve replacement in 1995 in [place]. She apparently fell about two weeks ago and had some bruising. She reports that she had fallen off the couch at that time. Over the last several days she was on antibiotics for an upper respiratory tract infection and she subsequently developed chest wall swelling and hematoma. This is quite large and has continued to expand. Cardiology was subsequently consulted as it is likely that this is going to have to undergo drainage. The patient denies any chest pain other than her chest wall hematoma. PAST MEDICAL HISTORY: Significant for: 1. AVR. 2. CHF. 3. Seizure disorder. 4. Hyperlipidemia. 5. TIA. 6. Arthritis. PAST SURGICAL HISTORY: 1. Mechanical AVR. OUTPATIENT MEDICATIONS: 1. Keppra. 2. Meclizine. 3. Mirtazapine. 4. Coumadin. 5. Cefdinir 6. Gabapentin. ALLERGIES: No known drug allergies. FAMILY HISTORY: Noncontributory. SOCIAL HISTORY: The patient does not drink or smoke. REVIEW OF SYSTEMS: Except what is mentioned in the HPI, all 12 systems are negative. PHYSICAL EXAMINATION: Vital signs are 98.0, 90, 16, 125/59. General: She is a well-appearing elderly female in no apparent distress. Neck: Free from JVD. Lungs: Decreased and clear to auscultation. Chest: The chest wall does have a large right hematoma. Cardiovascular: She has a mechanical S1. No rubs or gallops are appreciated. Abdomen: Soft. Extremities: Free from edema. LABORATORY FINDINGS Show an initial hemoglobin of 6.7. It steve to 9.2 and is 8.1 this afternoon. Creatinine was 1.96 on arrival with a baseline of 0.71. INR was 10.7 at 11:15 yesterday and is 3.8 this morning. IMAGING STUDIES: CT of the chest shows a large chest wall hematoma. The ascending aorta is also aneurysmal measuring 5.7. IMPRESSION: Large chest wall hematoma. Despite blood has continued to progress undoubtedly related to her supratherapeutic INR. At this point as her bleeding has been life threatening, I do agree with reversal, particularly as it is possible, if not probable that she will have to have that evacuated surgically. I do agree with a baseline echo prior to her surgery as it has been several years. She obviously will be at high-risk for cardiovascular complications given her mechanical AVR and significant ascending aortic aneurysm. I do believe that surgical evacuation and stabilization is reasonable if we are not able to achieve that with reversal. Phong San M.D. OVI/JAI /5:00 PM /5:14 PM
--- NOTE | 2016-09-04 19:00 | EC ---
Study Study Date:09/04/2016 STUDY CONCLUSIONS SUMMARY - Left ventricle: The cavity size was normal. Wall thickness was increased in a pattern of mild LVH. Systolic function was normal. The estimated ejection fraction was in the range of 60% to 65%. Wall motion was normal; there were no regional wall motion abnormalities. Doppler parameters are consistent with abnormal left ventricular relaxation (grade 1 diastolic dysfunction). - Aortic valve: Transvalvular velocity was increased less than expected. There was moderate to severe stenosis. Trace regurgitation. Valve area: 0.55cm^2(VTI). Valve area: 0.51cm^2 (Vmax). - Aortic root: The aortic root was moderately dilated. - Mitral valve: Calcified annulus. Mild regurgitation. - Left atrium: The atrium was mildly dilated. - Pericardium, extracardiac: A small pericardial effusion was identified. There was no evidence of hemodynamic compromise. If LV function is below 40, please consider prescribing an ACEI or ARB or document rationale for non-use. PROCEDURE DATA STUDY STATUS: Elective. Procedure: Transthoracic echocardiography. Image quality was good. Scanning was performed from the parasternal, apical, and subcostal acoustic windows. Study completion: The patient tolerated the procedure well. Transthoracic echocardiography. M-mode, complete 2D, complete spectral Doppler, and color Doppler. Height: Height: 70in. Weight: Weight: 153.7lb. Body mass index: BMI: 22.1kg/m^2. Body surface area: BSA: 1.87m^2. Patient status: Inpatient. CARDIAC ANATOMY LEFT VENTRICLE: The cavity size was normal. Wall thickness was increased in a pattern of mild LVH. Systolic function was normal. The estimated ejection fraction was in the range of 60% to 65%. Wall motion was normal; there were no regional wall motion abnormalities. Doppler parameters are consistent with abnormal left ventricular relaxation (grade 1 diastolic dysfunction). AORTIC VALVE: Probably trileaflet; mildly thickened, moderately calcified leaflets. Doppler: Transvalvular velocity was increased less than expected. There was moderate to severe stenosis. Trace regurgitation. Valve area: 0.55cm^2(VTI). Indexed valve area: 0.29cm^2/m^2 (VTI). Valve area: 0.51cm^2 (Vmax). Indexed valve area: 0.27cm^2/m^2 (Vmax). Mean gradient: 21mm Hg (S). Peak gradient: 38mm Hg (S). AORTA: Aortic root: The aortic root was moderately dilated. MITRAL VALVE: Calcified annulus. Doppler: Transvalvular velocity was within the normal range. There was no evidence for stenosis. Mild regurgitation. LEFT ATRIUM: The atrium was mildly dilated. RIGHT VENTRICLE: The cavity size was normal. Wall thickness was normal. PULMONIC VALVE: Doppler: Transvalvular velocity was within the normal range. There was no evidence for stenosis. No regurgitation. TRICUSPID VALVE: Structurally normal valve. Doppler: Transvalvular velocity was within the normal range. Trace regurgitation. PULMONARY ARTERY: The main pulmonary artery was normal-sized. Systolic pressure was within the normal range. RIGHT ATRIUM: The atrium was normal in size. PERICARDIUM: A small pericardial effusion was identified. There was no evidence of hemodynamic compromise. SYSTEMIC VEINS: Inferior vena cava: The vessel was normal in size. Patient weight: 153.7lb _Ejection fraction:_ 65-75% _Fractional shortening:_ 32% up to 5Kg 5-11.5Kg 11.6-22.9Kg 23-45Kg 45-57Kg Aortic Root 7-13 <17 13-22 17-27 17-27 LA diam 6-13 <23 24-38 33-47 37-40 RVID 10-17 7-15 7-15 7-18 8-17 LVIDd 12-22 <32 24-38 33-47 37-40 LVPW 2-4 3-6 5-7 6-8 7-8 IVS 2-4 3-6 5-7 6-8 7-8 BASIC MEASUREMENTS ADULT NORMAL Left ventricle LV internal dimension, ED, chordal *41.3 mm 43-52 level, PLAX LV internal dimension, ES, chordal 28.1 mm 23-38 level, PLAX Fractional shortening, chordal level, 32 % >29 PLAX LV posterior wall thickness, ED 8.3 mm IVS/LVPW ratio, ED 1.01 <1.3 Ventricular septum Septal thickness, ED 8.37 mm Aorta Root diameter, ED 32 mm Left atrium Anterior-posterior dimension 22 mm Anterior-posterior dimension index 1.18 cm/m^2 <2.2 DOPPLER MEASUREMENTS ADULT NORMAL Aortic valve Peak velocity, S 309 cm/s Mean velocity, S 219 cm/s VTI, S 47.7 cm Mean gradient, S 21 mm Hg Peak gradient, S 38 mm Hg Valve area, VTI 0.55 cm^2 Valve area index, VTI 0.29 cm^2/m^2 Valve area, Vmax 0.51 cm^2 Valve area index, Vmax 0.27 cm^2/m^2 Mitral valve Peak E-wave velocity 68.6 cm/s Peak A-wave velocity 81.9 cm/s Peak E/A ratio 0.8 Tricuspid valve Regurgitant peak velocity 291 cm/s Peak RV-RA gradient, S 34 mm Hg Maximal regurgitant velocity 291 cm/s LEGEND: Mean values are shown as u=mean value. Asterisk (*) hernandez values outside specified normal range. Prepared and signed by Dmtiri Smyth [id number]
[2016-09-04] MEDS ORDERED: LIDOCAINE HCL 1% 50 ML VIAL ONE (19:27)
[2016-09-04] MEDS ORDERED: ceFAZolin INJ 1,000 MG VIAL ONE (19:27)
[2016-09-04] MEDS ORDERED: ceFAZolin 2 GM PREMIX 50 ML ONE (19:27)
--- NOTE | 2016-09-04 20:18 | MB ---
cc: ELOINA AGUILA M.D. DATE OF CONSULTATION 09/04/2016 REASON FOR CONSULTATION Enlarging right chest wall hematoma. HISTORY OF PRESENT ILLNESS The patient is a pleasant 85-year-old female who fell a week ago. She is on Coumadin and had persistent pain in the right arm with some anterior chest wall swelling. It has been increasing over the previous two days. Since the patient's arrival, she has had continued swelling. She has required transfusion times one already and the hemoglobin continues to drop. The patient was noted on imaging to have a large 17 x 8 x 15 cm hematoma. There is no active extravasation at this time. The patient is not hypotensive or tachycardic at this time. LABORATORY DATA Laboratory values demonstrate WBC of 17.3, hemoglobin is currently 8.1, hematocrit 24.1, platelets are normal at 312,000. Coagulation is abnormal with initial INR yesterday of 10.6. INR this morning was 3.8. The patient is currently receiving FFP with first unit in and second unit going in shortly. The patient has received two units of packed red cells. PHYSICAL EXAMINATION The patient has an extremely large, swollen right breast extending up to her clavicle, over to her lateral chest wall and is quite tender and ecchymotic. ASSESSMENT Persistent bleeding with requirement for transfusion in a patient with mechanical valve. PLAN I have discussed with the patient's medical doctor that we will reverse her anticoagulation and take her to the operating room for incision and drainage of the extremely large hematoma. This is under pressure in the skin and could create necrosis of the skin. I have significant concerns of this and I have discussed this with the patient and her son. I feel that she would best be served by an incision and drainage procedure with placement of a drain so that further blood loss would be minimized and to preserve skin. We will need to hold on anticoagulation until her bleeding situation has resolved. Thank you Dr. Spain for asking us to see this individual. MD ALYSSA Peace/KK /6:28 PM /8:06 PM
[2016-09-04] MEDS: MIRTAZAPINE 15 MG TAB PO SCH (21:00)
[2016-09-04 21:31] LABS: AUTOMATED NEUTROPHIL # 11.1 TH/MM3 (1.8-7.7); BASOPHIL % 0.2 % (0.0-2.0); LYMPH % 3.8 % (9.0-44.0); LYMPHOCYTE # 0.5 TH/MM3 (1.0-4.8); MEAN CELL VOLUME 85.5 FL (80.0-100.0); MEAN CORPUSCULAR HEMOGLOBIN 29.8 PG (27.0-34.0); MEAN CORPUSCULAR HGB CONC 34.8 % (32.0-36.0); MONO % 14.4 % (0.0-8.0); NEUT % 81.6 % (16.0-70.0); PLATELET COUNT 197 TH/MM3 (150-450); RED BLOOD COUNT 2.01 MIL/MM3 (4.00-5.30); RED CELL DISTRIBUTION WIDTH 13.6 % (11.6-17.2); WHITE BLOOD COUNT 13.7 TH/MM3 (4.0-11.0)
[2016-09-04 21:32] LABS: BLOOD GAS BASE EXCESS 1.8 mmol/L (-2-2); BLOOD GAS CARBOXYHEMOGLOBIN 1.7 % (0-4); BLOOD GAS HCO3 26 mmol/L (22-26); BLOOD GAS METHEMOGLOBIN 1.1 % (0-2); BLOOD GAS O2 HGB SATURATION 97 % (90-100); BLOOD GAS OXYGEN CONTENT 14.1 Vol % (12.0-20.0); BLOOD GAS PCO2 40 mmHg (38-42); BLOOD GAS PO2 249 mmHg (61-120); BLOOD GAS TOTAL HGB 9.9 G/DL (12.0-16.0); TEMP CORR TO 98.6
[2016-09-04 21:33] LABS: CRITICAL VALUE NO; DRAW SITE OR GAS; FIO2 50 %; OXYGEN DEVICE OR; STAT YES; VENT SETTINGS OR
[2016-09-04 21:41] LABS: HEMO FLAGS AUTO DIFF
[2016-09-04 21:42] LABS: APTT (PATIENT) 29.4 SEC (24.3-30.1); HEMATOCRIT 17.2 % (35.0-46.0); INTERNATIONAL NORMALIZED RATIO 1.1 RATIO; PROTHROMBIN TIME - PATIENT 12.2 SEC (9.8-11.6)
[2016-09-04] MEDS ORDERED: DO NOT ADM ANY ANTICOAGULANT DRUGS XX PRN (22:00)
--- NOTE | 2016-09-04 22:06 | HHI.PR ---
cc: Linwood Napoles MD Immediate Post Op Note Procedure Date: Sep 04, 2016 Pre Op Diagnosis: Right chest wall hematoma Post Op Diagnosis: Same Surgeon: Linwood Napoles [employer] Legal Secretary(s): Susan Hastings CFA Procedure: Irrigation and drainage right chest wall hematoma Complications: None Specimen(s) removed: None Estimated blood loss: 1000 ml old clotted blood Anesthesia: General Drains: PATTI IVF (800 ml), PRBC (2), FFP (4) Patient to: PACU Patient Condition: Good Date/Time of Procedure: SEE SURGICAL CARE RECORD Linwood Napoles MD Sep 04, 2016 22:06
[2016-09-04 22:11] LABS: PLATELET ESTIMATE SMEAR NORMAL (NORMAL); PLATELET MORPHOLOGY NORMAL (NORMAL)
[2016-09-04 22:12] LABS: SCAN/DIFF AUTO DIFF CONFIRMED
[2016-09-04] MEDS ORDERED: fentaNYL CITRATE 250 MCG/5 ML AMP ONE (22:23)
[2016-09-04 22:46] LABS: HEMATOCRIT 23.4 % (35.0-46.0)
[2016-09-04 22:48] LABS: REVIEW FLAG FINAL
[2016-09-04] MEDS ORDERED: *morphine SULFATE 8 MG/ML PERIprocedure ONLY ONE (23:06)
[2016-09-04] MEDS: GABAPENTIN 300 MG CAP PO SCH (23:57)
[2016-09-05] VITALS (14 sets, daily range): BP systolic 105–138; BP diastolic 46–63; PULSE 81–103; RESP 15–35; TEMP 97.8–98.5; O2SAT 94–98
[2016-09-05 04:51] LABS: AUTOMATED NEUTROPHIL # 10.5 TH/MM3 (1.8-7.7); BASOPHIL # 0.1 TH/MM3 (0-0.2); BASOPHIL % 0.4 % (0.0-2.0); HEMATOCRIT 24.1 % (35.0-46.0); LYMPH % 9.7 % (9.0-44.0); LYMPHOCYTE # 1.4 TH/MM3 (1.0-4.8); MEAN CELL VOLUME 86.3 FL (80.0-100.0); MEAN CORPUSCULAR HEMOGLOBIN 29.7 PG (27.0-34.0); MEAN CORPUSCULAR HGB CONC 34.5 % (32.0-36.0); MONO % 17.5 % (0.0-8.0); NEUT % 72.4 % (16.0-70.0); PLATELET COUNT 217 TH/MM3 (150-450); RED BLOOD COUNT 2.79 MIL/MM3 (4.00-5.30); RED CELL DISTRIBUTION WIDTH 14.2 % (11.6-17.2); WHITE BLOOD COUNT 14.5 TH/MM3 (4.0-11.0)
[2016-09-05 04:58] LABS: HEMO FLAGS AUTO DIFF
[2016-09-05 05:04] LABS: INTERNATIONAL NORMALIZED RATIO 1.1 RATIO; PROTHROMBIN TIME - PATIENT 11.8 SEC (9.8-11.6)
[2016-09-05 05:23] LABS: POTASSIUM 4.7 MEQ/L (3.5-5.1)
[2016-09-05 07:00] LABS: BANDS 4 % (0-6); METAMYELOCYTES 1 % (0-1); NEUTROPHIL # MANUAL DIFF 11.6 TH/MM3 (1.8-7.7); POLYS (SEG NEUTROPHILS) 75 % (16-70); WBC DIFF SAMPLE 100
[2016-09-05 07:01] LABS: PLATELET ESTIMATE SMEAR NORMAL (NORMAL); PLATELET MORPHOLOGY NORMAL (NORMAL); SCAN/DIFF FINAL DIFF MANUAL
--- NOTE | 2016-09-05 07:06 | EKG ---
Date Performed: 09/03/2016 Time Performed: 11:37:57 PTAGE: 85 years EKG: Sinus rhythm WITH OCCASIONAL VENTRICULAR PREMATURE COMPLEXES Consider anteroseptal UT, age indeterminate MODERATE T-WAVE ABNORMALITY, CONSIDER LATERAL ISCHEMIA ABNORMAL ECG PREVIOUS TRACING : 01/07/2016 14.31 DOCTOR: Deacon Gutierrez Interpretating Date/Time 09/05/2016 07:05:01
[2016-09-05 07:14] LABS: MRSA PCR NEGATIVE (NEGATIVE); STAPH AUREUS PCR NEGATIVE (NEGATIVE)
--- NOTE | 2016-09-05 07:35 | PD.CARD.PN ---
Subjective Subjective Remarks Pt without CV complaints Objective Medications Current Medications Medications (Trade) Dose Ordered Sig/Deider Route Start Time Stop Time Status Last Admin (Neurontin) 300 mg HS PO 09/03/16 21:00 09/04/16 23:57 (Keppra) 500 mg BID PO 09/03/16 21:00 09/04/16 23:57 (Antivert) 25 mg TID PRN PO 09/03/16 14:30 (Remeron) 7.5 mg HS PO 09/03/16 21:00 09/03/16 21:12 (Tylenol) 650 mg Q4H PRN PO 09/03/16 14:30 (Zofran Inj) 4 mg Q6H PRN IVP 09/03/16 14:30 (Milk Of [place]rie Liq) 30 ml Q12H PRN PO 09/03/16 14:30 (Tylenol) 650 mg Q6H PRN PO 09/03/16 14:30 ([place] 5-325 Mg) 1 tab Q4H PRN PO 09/03/16 14:30 09/03/16 21:12 ([place] 7.5-325 Mg) 1 tab Q4H PRN PO 09/03/16 14:30 09/04/16 13:24 Naloxone HCl 0.4 mg 0.4 mg UNSCH PRN IV 09/03/16 14:30 (NS + KCl 20 Meq Inj) 1,000 ml @ 75 mls/hr [id number] IV 09/03/16 16:00 09/04/16 23:00 (Morphine Inj) 1 mg Q3H PRN IV PUSH 09/04/16 15:15 09/04/16 15:33 Miscellaneous Information ALL NURSING DEPARTME... UNSCH PRN XX 09/04/16 22:00 09/05/16 21:59 Vital Signs / I&O Vital Signs Date Time Temp Pulse Resp B/P Pulse Ox O2 Delivery O2 Flow Rate FiO2 09/05/16 06:00 89 09/05/16 04:00 98.0 89 15 125/59 98 09/05/16 04:00 89 09/05/16 02:00 84 09/05/16 00:25 97.8 102 18 138/63 94 09/05/16 00:25 103 09/05/16 00:00 97.8 98 17 135/69 96 Nasal Cannula 3 142/61 09/04/16 23:45 102 17 135/69 94 Nasal Cannula 3 135/60 09/04/16 23:30 103 16 127/69 95 Nasal Cannula 3 138/60 09/04/16 23:15 101 16 123/75 94 Nasal Cannula 3 136/60 09/04/16 23:00 103 18 131/59 95 Nasal Cannula 3 139/59 09/04/16 22:45 99 24 146/63 93 Nasal Cannula 3 148/54 09/04/16 22:30 99 16 149/69 93 Nasal Cannula 3 150/62 09/04/16 22:15 89 12 144/76 99 Simple Mask 10 154/66 09/04/16 22:12 97.6 92 12 147/80 99 Simple Mask 10 149/65 09/04/16 18:12 98.0 97 16 114/56 92 09/04/16 17:34 98.0 92 14 130/59 93 09/04/16 16:05 98.0 90 16 125/59 95 09/04/16 15:38 16 09/04/16 14:25 18 09/04/16 12:45 95 09/04/16 11:20 97.9 101 18 129/62 95 09/04/16 08:14 97 Nasal Cannula 2.00 09/04/16 07:40 97.7 96 20 152/71 96 I/O 09/04/16 09/04/16 09/04/16 09/05/16 09/05/16 09/05/16 07:00 15:00 23:00 07:00 15:00 23:00 Intake Total 510 ml 2300 ml 418 ml Output Total 1200 ml 1085 ml Balance 510 ml 1100 ml -667 ml Intake IV Total 10 ml 800 ml 418 ml Packed Cells 500 ml 500 ml FFP 1000 ml Output Urine Total 1050 ml Drainage Total 35 ml Estimated Blood Loss 1000 ml Other 200 ml # Voids 2 Physical Exam GENERAL: Well developed, well nourished. No acute distress. HEENT: Jugular venous pressure is normal. CHEST: Lungs clear to auscultation bilaterally. Unlabored respiratory effort. CARDIAC: Regular rate and rhythm mechanical S1 ABDOMEN: Soft, Bowel sounds present. EXTREMITIES: No clubbing, cyanosis, or edema. Laboratory Laboratory Tests Test 2/2109/04/16 09/04/16 09/04/16 07:56 14:36 16:05 21:10 White Blood Count 17.3 TH/MM3 13.7 TH/MM3 Red Blood Count 3.16 MIL/MM3 2.01 MIL/MM3 Hemoglobin 9.2 GM/DL 8.1 GM/DL 6.0 GM/DL Hematocrit 27.4 % 24.1 % 17.2 % Mean Corpuscular Volume 86.8 FL 85.5 FL Mean Corpuscular Hemoglobin 29.1 PG 29.8 PG Mean Corpuscular Hemoglobin 33.5 % 34.8 % Concent Red Cell Distribution Width 13.7 % 13.6 % Platelet Count 312 TH/MM3 197 TH/MM3 Mean Platelet Volume 8.7 FL 8.3 FL Neutrophils (%) (Auto) 83.4 % 81.6 % Lymphocytes (%) (Auto) 5.3 % 3.8 % Monocytes (%) (Auto) 10.9 % 14.4 % Eosinophils (%) (Auto) 0.0 % 0.0 % Basophils (%) (Auto) 0.4 % 0.2 % Neutrophils # (Auto) 14.4 TH/MM3 11.1 TH/MM3 Lymphocytes # (Auto) 0.9 TH/MM3 0.5 TH/MM3 Monocytes # (Auto) 1.9 TH/MM3 2.0 TH/MM3 Eosinophils # (Auto) 0.0 TH/MM3 0.0 TH/MM3 Basophils # (Auto) 0.1 TH/MM3 0.0 TH/MM3 CBC Comment AUTO DIFF AUTO DIFF Differential Total Cells 100 Counted Neutrophils % (Manual) 79 % Band Neutrophils % 9 % Lymphocytes % 6 % Monocytes % 4 % Neutrophils # (Manual) 15.6 TH/MM3 Metamyelocytes 2 % Differential Comment FINAL DIFF AUTO DIFF MANUAL CONFIRMED Platelet Estimate NORMAL NORMAL Platelet Morphology Comment NORMAL NORMAL Red Cell Morphology Comment NORMAL NORMAL Prothrombin Time 45.1 SEC 12.2 SEC Prothromb Time International 3.8 RATIO 1.1 RATIO Ratio Sodium Level 136 MEQ/L Potassium Level 4.5 MEQ/L Chloride Level 100 MEQ/L Carbon Dioxide Level 30.5 MEQ/L Anion Gap 6 MEQ/L Blood Urea Nitrogen 50 MG/DL Creatinine 1.32 MG/DL Estimat Glomerular Filtration 38 ML/MIN Rate Random Glucose 167 MG/DL Calcium Level 7.5 MG/DL Total Bilirubin 1.4 MG/DL Aspartate Amino Transf 25 U/L (AST/SGOT) Alanine Aminotransferase 25 U/L (ALT/SGPT) Alkaline Phosphatase 54 U/L Total Protein 6.1 GM/DL Albumin 2.3 GM/DL Blood Bank Comment Activated Partial 29.4 SEC Thromboplast Time Blood Gas Puncture Site OR GAS Blood Gas Patient Temperature 98.6 Blood Gas HCO3 26 mmol/L Blood Gas Base Excess 1.8 mmol/L Blood Gas Oxygen Saturation 97 % Arterial Blood pH 7.43 Arterial Blood Partial 40 mmHg Pressure CO2 Arterial Blood Partial 249 mmHg Pressure O2 Arterial Blood Oxygen Content 14.1 Vol % Arterial Blood 1.7 % Carboxyhemoglobin Arterial Blood Methemoglobin 1.1 % Blood Gas Hemoglobin 9.9 G/DL Oxygen Delivery Device OR Blood Gas Ventilator Setting OR Blood Gas Inspired Oxygen 50 % Test 09/04/16 09/05/16 09/05/16 22:38 00:28 04:41 Hemoglobin 8.2 GM/DL 8.3 GM/DL Hematocrit 23.4 % 24.1 % Nasal Screen MRSA (PCR) NEGATIVE Staphylococcus aureus NEGATIVE (PCR)(LAB) White Blood Count 14.5 TH/MM3 Red Blood Count 2.79 MIL/MM3 Mean Corpuscular Volume 86.3 FL Mean Corpuscular Hemoglobin 29.7 PG Mean Corpuscular Hemoglobin 34.5 % Concent Red Cell Distribution Width 14.2 % Platelet Count 217 TH/MM3 Mean Platelet Volume 7.9 FL Neutrophils (%) (Auto) 72.4 % Lymphocytes (%) (Auto) 9.7 % Monocytes (%) (Auto) 17.5 % Eosinophils (%) (Auto) 0.0 % Basophils (%) (Auto) 0.4 % Neutrophils # (Auto) 10.5 TH/MM3 Lymphocytes # (Auto) 1.4 TH/MM3 Monocytes # (Auto) 2.5 TH/MM3 Eosinophils # (Auto) 0.0 TH/MM3 Basophils # (Auto) 0.1 TH/MM3 CBC Comment AUTO DIFF Differential Total Cells 100 Counted Neutrophils % (Manual) 75 % Band Neutrophils % 4 % Lymphocytes % 6 % Monocytes % 14 % Neutrophils # (Manual) 11.6 TH/MM3 Metamyelocytes 1 % Differential Comment FINAL DIFF MANUAL Platelet Estimate NORMAL Platelet Morphology Comment NORMAL Prothrombin Time 11.8 SEC Prothromb Time International 1.1 RATIO Ratio Sodium Level 143 MEQ/L Potassium Level 4.7 MEQ/L Chloride Level 106 MEQ/L Carbon Dioxide Level 33.0 MEQ/L Anion Gap 4 MEQ/L Blood Urea Nitrogen 31 MG/DL Creatinine 0.82 MG/DL Estimat Glomerular Filtration 66 ML/MIN Rate Random Glucose 112 MG/DL Calcium Level 7.6 MG/DL Assessment and Plan Assessment and Plan hx mechanical AVR- pt off anticoagulants secondary to hematoma -heart tone are stable for AVR -restart anticoagulation when felt reasonable by surgery hematoma- large right chest wall hematoma s/p resection -per surgery Lyn Rodriguez MD Sep 05, 2016 07:35
--- NOTE | 2016-09-05 08:12 | MP ---
cc: ELOINA AGUILA M.D. DATE OF SURGERY: 09/04/2016 PROCEDURE Incision and drainage with irrigation, right chest wall hematoma. PREOPERATIVE DIAGNOSIS Right chest wall hematoma, persistent and expanding. POSTOPERATIVE DIAGNOSIS Right chest wall hematoma, persistent and expanding. ANESTHESIA General endotracheal. SURGEON Dony ESTIMATED BLOOD LOSS 1000 mL old clot. FLUIDS 800 mL crystalloid, 4 units FFP, 2 units packed red cells. COMPLICATIONS None. DRAINS Iggy drain x1. SPECIMEN None. PROCEDURE IN DETAIL The patient was taken to the operating room and placed on the operating table in a supine position. After an adequate level of general endotracheal anesthesia was achieved, an arterial line was placed. The right breast was prepped and draped in the field. A timeout was taken confirming the correct patient, site and procedure to be performed. A transverse incision was made directly over the largest part of the hematoma. Dissection was carried down with electrocautery through the breast and the pectoralis muscle was split in the direction of its fibers. A very large clot was removed and smaller clots were then removed as well. The wound was then irrigated copiously with three liters of antibiotic irrigation and a small amount of peroxide was used as well to clean up old blood. When this had been completed small bleeding points were controlled with electrocautery. Two small venous bleeders were controlled with electrocautery only. With hemostasis assured, six grams of Germán powder was placed onto the muscle itself in the subcutaneous tissues. A Iggy drain was brought out via a separate stab incision laterally and affixed to the skin with a 3-0 nylon suture. The wound was closed with interrupted 3-0 Vicryl suture and the skin closed with 5-0 PDS in a running subcuticular fashion. The wound was dressed with Steri-Strips. A bra was applied. A 4x4 was applied around the drain site. The patient was extubated and taken back to the recovery room in stable condition. She tolerated the procedure well. Sponge, needle and instrument counts were reported to be correct. MD ALYSSA Peace/LUISITO /10:15 PM /8:07 AM
[2016-09-05] MEDS: RESP: ALBUTEROL 2.5 MG/IPRATROPIUM 0.5 MG NEB (SCH) NEB ×4 (08:27→19:57)
--- NOTE | 2016-09-05 08:27 | HHI.PR ---
Subjective Remarks Follow up hematoma, anemia. Patient states that she feels much better today. Still with pain in the right chest wall/breast, but much less than yesterday. No other complaints at this time. Objective Vitals Vital Signs Date Time Temp Pulse Resp B/P Pulse Ox O2 Delivery O2 Flow Rate FiO2 09/05/16 06:00 89 09/05/16 04:00 98.0 89 15 125/59 98 09/05/16 04:00 89 09/05/16 02:00 84 09/05/16 00:25 97.8 102 18 138/63 94 09/05/16 00:25 103 09/05/16 00:00 97.8 98 17 135/69 96 Nasal Cannula 3 142/61 09/04/16 23:45 102 17 135/69 94 Nasal Cannula 3 135/60 09/04/16 23:30 103 16 127/69 95 Nasal Cannula 3 138/60 09/04/16 23:15 101 16 123/75 94 Nasal Cannula 3 136/60 09/04/16 23:00 103 18 131/59 95 Nasal Cannula 3 139/59 09/04/16 22:45 99 24 146/63 93 Nasal Cannula 3 148/54 09/04/16 22:30 99 16 149/69 93 Nasal Cannula 3 150/62 09/04/16 22:15 89 12 144/76 99 Simple Mask 10 154/66 09/04/16 22:12 97.6 92 12 147/80 99 Simple Mask 10 149/65 09/04/16 18:12 98.0 97 16 114/56 92 09/04/16 17:34 98.0 92 14 130/59 93 09/04/16 16:05 98.0 90 16 125/59 95 09/04/16 15:38 16 09/04/16 14:25 18 09/04/16 12:45 95 09/04/16 11:20 97.9 101 18 129/62 95 I/O 09/04/16 09/04/16 09/04/16 09/05/16 09/05/16 09/05/16 07:00 15:00 23:00 07:00 15:00 23:00 Intake Total 510 ml 2300 ml 418 ml Output Total 1200 ml 1085 ml Balance 510 ml 1100 ml -667 ml Intake IV Total 10 ml 800 ml 418 ml Packed Cells 500 ml 500 ml FFP 1000 ml Output Urine Total 1050 ml Drainage Total 35 ml Estimated Blood Loss 1000 ml Other 200 ml # Voids 2 Result Diagram: 09/05/16 0441 09/05/16 0441 Imaging Last Impressions Consultation 09/04/16 1435 Signed Impressions: Service Date/Time: Sunday, September 04, 2016 14:35 - CONCLUSION: The complex right chest wall hematoma appears to be deep to the pectoralis major muscle. We could attempt drainage if needed clinically. Typically with a hematoma of this age and complex appearance we are usually unsuccessful at draining a significant portion of the hematoma. However, this could be attempted if needed clinically. Findings were discussed with Dr. Spain. Ganga Patel MD Radius/Ulna X-Ray 09/03/161102 Signed Impressions: Service Date/Time: Saturday, September 03, 2016 11:28 - CONCLUSION: No acute bony injury Cirilo Christensen MD Humerus X-Ray 09/03/161102 Signed Impressions: Service Date/Time: Saturday, September 03, 2016 11:25 - CONCLUSION: Unremarkable examination of the right humerus. Cirilo Christensen MD Chest X-Ray 09/03/161102 Signed Impressions: Service Date/Time: Saturday, September 03, 2016 11:24 - CONCLUSION: No acute disease. Orville Dominguez Jr., MD Chest CT 09/03/161102 Signed Impressions: Service Date/Time: Saturday, September 03, 2016 12:39 - CONCLUSION: Large right breast/chest wall mass may simply be large hematoma, however underlying neoplastic process should additionally be considered and either close clinical and mammographic followup or additional short-term evaluation with pre-and postcontrast MRI may be beneficial. 5.7 cm aneurysm of the ascending thoracic aorta. Ganga Michael MD Objective Remarks General: Elderly female in no acute distress. Heart: Regular rate and rhythm. No murmur. Chest wall: Ecchymosis of right breast/chest. PATTI drain in place. Significant reduction in size/tenderness compared to yesterday. Lungs: Clear to auscultation bilaterally. No wheezes, rales, or rhonchi. Breathing is nonlabored. Abdomen: Soft, nontender, nondistended. Extremities: No lower extremity edema. Psych: Alert and oriented. Procedures None Urinary Catheter: No Vascular Central Line Catheter: No A/P Problem List: (1) Supratherapeutic INR ICD Code: R79.1 Status: Resolved (2) Coumadin toxicity ICD Code: T45.511A Status: Resolved (3) History of mechanical aortic valve replacement ICD Code: Z95.2 Status: Chronic (4) Chest wall hematoma ICD Code: S20.219A Status: Acute (5) Contusion of right arm ICD Code: S40.021A Status: Acute (6) Acute renal failure ICD Code: N17.9 Status: Acute (7) Anemia due to acute blood loss ICD Code: D62 Status: Acute Assessment and Plan 1. Fall with right arm contusion, chest wall hematoma: Hematoma was enlarging yesterday and patient's H/H was dropping. S/P irrigation and drainage of the hematoma, POD#1. Appreciate general surgery recommendations. 2. Coumadin toxicity: Resolved. Given 4 units of FFP yesterday. INR now subtherapeutic. Patient is on Coumadin chronically for mechanical aortic valve. Will restart anticoagulation when OK with surgery. 3. Seizure disorder: Continue Keppra. 4. Thoracic aortic aneurysm: Appreciate cardiothoracic surgery recommendations. Continue medical management. No surgical intervention due to advanced age, high risk. 5. History of diastolic congestive heart failure: Currently asymptomatic. 6. Acute renal failure: Continue gentle IV fluid hydration, using caution secondary to patient's history of CHF. BUN and creatinine are improving. 7. DVT prophylaxis: INR is supratherapeutic. 8. Anemia secondary to acute blood loss: Status post transfusion of 2 units PRBCs. H/H improved and remained stable overnight. Had been decreasing yesterday prior to surgery. 9. CODE STATUS: Full code. Problem Qualifiers (1) Coumadin toxicity: Qualified Code: T45.511A - Coumadin toxicity, accidental or unintentional, initial encounter (2) Chest wall hematoma: Qualified Code: S20.211A - Chest wall hematoma, right, initial encounter (3) Contusion of right arm: Qualified Code: S40.021A - Contusion of right arm, initial encounter Theron Spain MD Sep 05, 2016 08:27
[2016-09-05] MEDS: levETIRAcetam 500 MG TAB PO SCH ×2 (08:54→20:18)
--- NOTE | 2016-09-05 11:37 | HHI.PR ---
Subjective Subjective Notes Less painful today. Objective Vitals/I&O Vital Signs Date Time Temp Pulse Resp B/P Pulse Ox O2 Delivery O2 Flow Rate FiO2 09/05/16 10:00 84 09/05/16 08:30 95 Nasal Cannula 2.00 09/05/16 08:00 97.9 15 130/59 Labs Laboratory Tests Test 09/04/16 09/04/16 09/04/16 09/04/16 14:36 16:05 21:10 22:38 Hemoglobin 8.1 6.0 8.2 Hematocrit 24.1 17.2 23.4 Blood Bank Comment White Blood Count 13.7 Red Blood Count 2.01 Mean Corpuscular Volume 85.5 Mean Corpuscular Hemoglobin 29.8 Mean Corpuscular Hemoglobin 34.8 Concent Red Cell Distribution Width 13.6 Platelet Count 197 Mean Platelet Volume 8.3 Neutrophils (%) (Auto) 81.6 Lymphocytes (%) (Auto) 3.8 Monocytes (%) (Auto) 14.4 Eosinophils (%) (Auto) 0.0 Basophils (%) (Auto) 0.2 Neutrophils # (Auto) 11.1 Lymphocytes # (Auto) 0.5 Monocytes # (Auto) 2.0 Eosinophils # (Auto) 0.0 Basophils # (Auto) 0.0 CBC Comment AUTO DIFF Differential Comment AUTO DIFF CONFIRMED Platelet Estimate NORMAL Platelet Morphology Comment NORMAL Red Cell Morphology Comment NORMAL Prothrombin Time 12.2 Prothromb Time International 1.1 Ratio Activated Partial 29.4 Thromboplast Time Blood Gas Puncture Site OR GAS Blood Gas Patient Temperature 98.6 Blood Gas HCO3 26 Blood Gas Base Excess 1.8 Blood Gas Oxygen Saturation 97 Arterial Blood pH 7.43 Arterial Blood Partial 40 Pressure CO2 Arterial Blood Partial 249 Pressure O2 Arterial Blood Oxygen Content 14.1 Arterial Blood 1.7 Carboxyhemoglobin Arterial Blood Methemoglobin 1.1 Blood Gas Hemoglobin 9.9 Oxygen Delivery Device OR Blood Gas Ventilator Setting OR Blood Gas Inspired Oxygen 50 Test 09/05/16 09/05/16 00:28 04:41 Nasal Screen MRSA (PCR) NEGATIVE Staphylococcus aureus NEGATIVE (PCR)(LAB) White Blood Count 14.5 Red Blood Count 2.79 Hemoglobin 8.3 Hematocrit 24.1 Mean Corpuscular Volume 86.3 Mean Corpuscular Hemoglobin 29.7 Mean Corpuscular Hemoglobin 34.5 Concent Red Cell Distribution Width 14.2 Platelet Count 217 Mean Platelet Volume 7.9 Neutrophils (%) (Auto) 72.4 Lymphocytes (%) (Auto) 9.7 Monocytes (%) (Auto) 17.5 Eosinophils (%) (Auto) 0.0 Basophils (%) (Auto) 0.4 Neutrophils # (Auto) 10.5 Lymphocytes # (Auto) 1.4 Monocytes # (Auto) 2.5 Eosinophils # (Auto) 0.0 Basophils # (Auto) 0.1 CBC Comment AUTO DIFF Differential Total Cells 100 Counted Neutrophils % (Manual) 75 Band Neutrophils % 4 Lymphocytes % 6 Monocytes % 14 Neutrophils # (Manual) 11.6 Metamyelocytes 1 Differential Comment FINAL DIFF MANUAL Platelet Estimate NORMAL Platelet Morphology Comment NORMAL Prothrombin Time 11.8 Prothromb Time International 1.1 Ratio Sodium Level 143 Potassium Level 4.7 Chloride Level 106 Carbon Dioxide Level 33.0 Anion Gap 4 Blood Urea Nitrogen 31 Creatinine 0.82 Estimat Glomerular Filtration 66 Rate Random Glucose 112 Calcium Level 7.6 Lungs: Clear Abdomen: Non-distended Narrative Exam Wound clean and dry, steristrips intact PATTI output 60 ml overnight, serosanguinous. Ecchymosis over breast; swelling much improved since surgery. A/P Assessment and Plan Assessment: POD #1 I&D RIGHT chest wall hematoma; bleeding appears to have ceased. Plan: D/C lee OOB to chair Hold anticoagulation today; may restart Thursday 09/07 if no further bleeding today or tomorrow. Transfer to floor later today if Hb/Hct stable. Linwood Napoles MD Sep 05, 2016 11:37
[2016-09-05] MEDS: NS + KCL 20 MEQ INJ 1,000 ML IV SCH (12:54)
[2016-09-05 13:59] LABS: HEMATOCRIT 25.3 % (35.0-46.0); REVIEW FLAG FINAL
[2016-09-05] MEDS ORDERED: SODIUM CHLORID 0.9% 500 ML INJ 500 ML IV ONE (14:00)
[2016-09-05] MEDS: MORPHINE SULFATE 4 MG/ML INJ IV PUSH PRN (17:13)
[2016-09-05] MEDS: GABAPENTIN 300 MG CAP PO SCH (20:18)
[2016-09-05] MEDS: MIRTAZAPINE 15 MG TAB PO SCH (20:18)
--- NOTE | 2016-09-05 22:25 | EKG ---
Date Performed: 09/04/2016 Time Performed: 16:26:39 PTAGE: 85 years EKG: Sinus rhythm ABNORMAL ECG Compared to the PREVIOUS TRACING , ST-T changes improved DOCTOR: Huma Correia Interpretating Date/Time 09/05/2016 22:23:37
[2016-09-06] VITALS (13 sets, daily range): BP systolic 110–142; BP diastolic 44–59; PULSE 79–94; RESP 21–34; TEMP 98.1–98.8; O2SAT 94–97
[2016-09-06 04:10] LABS: HEMATOCRIT 25.2 % (35.0-46.0); REVIEW FLAG FINAL
[2016-09-06 04:22] LABS: BICARBONATE 31.2 MEQ/L (21.0-32.0); POTASSIUM 5.1 MEQ/L (3.5-5.1)
[2016-09-06] MEDS: NS + KCL 20 MEQ INJ 1,000 ML IV SCH (07:23)
--- NOTE | 2016-09-06 08:09 | PD.CARD.PN ---
Subjective Subjective Remarks Pt without CV complaints Objective Medications Current Medications Medications (Trade) Dose Ordered Sig/Deidre Route Start Time Stop Time Status Last Admin (Neurontin) 300 mg HS PO 09/03/16 21:00 09/05/16 20:18 (Keppra) 500 mg BID PO 09/03/16 21:00 09/05/16 20:18 (Antivert) 25 mg TID PRN PO 09/03/16 14:30 (Remeron) 7.5 mg HS PO 09/03/16 21:00 09/05/16 20:18 (Tylenol) 650 mg Q4H PRN PO 09/03/16 14:30 (Zofran Inj) 4 mg Q6H PRN IVP 09/03/16 14:30 (Milk Of [place] Liq) 30 ml Q12H PRN PO 09/03/16 14:30 (Tylenol) 650 mg Q6H PRN PO 09/03/16 14:30 ([place] 5-325 Mg) 1 tab Q4H PRN PO 09/03/16 14:30 09/03/16 21:12 ([place] 7.5-325 Mg) 1 tab Q4H PRN PO 09/03/16 14:30 09/04/16 13:24 Naloxone HCl 0.4 mg 0.4 mg UNSCH PRN IV 09/03/16 14:30 (NS + KCl 20 Meq Inj) 1,000 ml @ 75 mls/hr [id number] IV 09/03/16 16:00 09/05/16 12:54 (Morphine Inj) 1 mg Q3H PRN IV PUSH 09/04/16 15:15 09/05/16 17:13 Vital Signs / I&O Vital Signs Date Time Temp Pulse Resp B/P Pulse Ox O2 Delivery O2 Flow Rate FiO2 09/06/16 07:00 98 Nasal Cannula 4.00 09/06/16 06:00 79 09/06/16 04:00 85 09/06/16 04:00 98.1 85 23 137/59 94 09/06/16 02:00 81 09/06/16 00:00 98.3 82 21 128/52 97 09/06/16 00:00 82 09/05/16 22:00 90 09/05/16 20:00 89 09/05/16 20:00 98.5 89 20 118/46 95 09/05/16 19:57 94 Nasal Cannula 3.00 09/05/16 19:00 96 Nasal Cannula 3.00 09/05/16 18:00 90 09/05/16 17:18 24 09/05/16 16:00 98.1 97 35 105/46 94 09/05/16 16:00 97 09/05/16 14:00 103 09/05/16 12:00 86 09/05/16 12:00 98.2 86 23 116/47 96 09/05/16 10:00 84 09/05/16 08:30 95 Nasal Cannula 2.00 I/O 09/05/16 09/05/16 09/05/16 09/06/16 09/06/16 09/06/16 07:00 15:00 23:00 07:00 15:00 23:00 Intake Total 418 ml 1792 ml 389 ml 614 ml Output Total 1085 ml 1420 ml 5 ml 0 ml Balance -667 ml 372 ml 384 ml 614 ml Intake Oral 500 ml IV Total 418 ml 1292 ml 389 ml 614 ml Output Urine Total 1050 ml 1350 ml Drainage Total 35 ml 70 ml 5 ml 0 ml # Voids 3 4 # Bowel Movements 0 Physical Exam GENERAL: Well developed, well nourished. No acute distress. HEENT: Jugular venous pressure is normal. CHEST: Lungs clear to auscultation bilaterally. Unlabored respiratory effort. CARDIAC: Regular rate and rhythm mechanical S1 ABDOMEN: Soft, Bowel sounds present. EXTREMITIES: No clubbing, cyanosis, or edema. Laboratory Laboratory Tests Test 09/05/16 09/06/16 13:43 03:45 Hemoglobin 8.7 GM/DL 8.7 GM/DL Hematocrit 25.3 % 25.2 % Sodium Level 146 MEQ/L Potassium Level 5.1 MEQ/L Chloride Level 113 MEQ/L Carbon Dioxide Level 31.2 MEQ/L Anion Gap 2 MEQ/L Blood Urea Nitrogen 19 MG/DL Creatinine 0.66 MG/DL Estimat Glomerular Filtration 85 ML/MIN Rate Random Glucose 108 MG/DL Calcium Level 8.0 MG/DL Assessment and Plan Assessment and Plan hx mechanical AVR- pt off anticoagulants secondary to hematoma -heart tone are stable for AVR -restart anticoagulation probably tomorrow hematoma- large right chest wall hematoma s/p resection -per surgery Lyn Rodriguez MD Sep 06, 2016 08:09
[2016-09-06] MEDS: RESP: ALBUTEROL 2.5 MG/IPRATROPIUM 0.5 MG NEB (SCH) NEB ×4 (08:21→20:17)
[2016-09-06] MEDS: MORPHINE SULFATE 4 MG/ML INJ IV PUSH PRN ×2 (09:05→15:58)
[2016-09-06] MEDS: levETIRAcetam 500 MG TAB PO SCH ×2 (10:13→20:23)
--- NOTE | 2016-09-06 13:53 | HHI.PR ---
Subjective Subjective Notes Up to chair Ate breakfast Pain controlled Objective Vitals/I&O Vital Signs Date Time Temp Pulse Resp B/P Pulse Ox O2 Delivery O2 Flow Rate FiO2 09/06/16 12:00 98.5 84 29 110/44 94 09/06/16 08:22 Nasal Cannula 3.00 Labs Laboratory Tests Test 09/06/16 03:45 Hemoglobin 8.7 Hematocrit 25.2 Sodium Level 146 Potassium Level 5.1 Chloride Level 113 Carbon Dioxide Level 31.2 Anion Gap 2 Blood Urea Nitrogen 19 Creatinine 0.66 Estimat Glomerular Filtration 85 Rate Random Glucose 108 Calcium Level 8.0 Cardiovascular: Regular Lungs: Clear Abdomen: Non-distended, Non-tender Narrative Exam RIGHT chest/breast with ecchymosis---PATTI in place with minimal SS drainage A/P Assessment and Plan 85 year old female POD2 I&D RIGHT chest wall hematoma -Regular diet -OOB -Hb/Hct stable -Continue holding anticoagulation for now -Okay to transfer to the floor Attending Note - Dr. Napoles Puffiness over breast PATTI not working (output listed as zero) - tubing stripped and 75 ml bloody fluid quickly removed Transfer to floor Advance diet Start anticoagulation 09/07 if Hb remains stable The exam, history, and the medical decision-making described in the above note were completed with the assistance of the mid-level provider. I reviewed and agree with the findings presented. I attest that I had a [id number] encounter with the patient on the same day, and personally performed and documented my assessment and findings in the medical record. Jessica Hahn Sep 06, 2016 13:53 Linwood Napoles MD Sep 06, 2016 18:05
--- NOTE | 2016-09-06 16:13 | HHI.PR ---
Subjective Remarks She is sitting on the chair, she is moaning little bit because of the pain in her chest She is afebrile no cough or short of breath Plan to resume anticoagulation tomorrow with monitoring if okay with surgery Objective Vitals Vital Signs Date Time Temp Pulse Resp B/P Pulse Ox O2 Delivery O2 Flow Rate FiO2 09/06/16 16:09 24 09/06/16 14:00 86 09/06/16 12:00 98.5 84 29 110/44 94 09/06/16 12:00 84 09/06/16 10:00 90 09/06/16 08:22 95 Nasal Cannula 3.00 09/06/16 08:00 83 09/06/16 08:00 98.8 83 27 142/56 97 09/06/16 07:00 98 Nasal Cannula 4.00 09/06/16 06:00 79 09/06/16 04:00 85 09/06/16 04:00 98.1 85 23 137/59 94 09/06/16 02:00 81 09/06/16 00:00 98.3 82 21 128/52 97 09/06/16 00:00 82 09/05/16 22:00 90 09/05/16 20:00 89 09/05/16 20:00 98.5 89 20 118/46 95 09/05/16 19:57 94 Nasal Cannula 3.00 09/05/16 19:00 96 Nasal Cannula 3.00 09/05/16 18:00 90 I/O 09/05/16 09/05/16 09/05/16 09/06/16 09/06/16 09/06/16 07:00 15:00 23:00 07:00 15:00 23:00 Intake Total 418 ml 1792 ml 389 ml 614 ml 900 ml Output Total 1085 ml 1420 ml 5 ml 0 ml 180 ml Balance -667 ml 372 ml 384 ml 614 ml 720 ml Intake Oral 500 ml 500 ml IV Total 418 ml 1292 ml 389 ml 614 ml 400 ml Output Urine Total 1050 ml 1350 ml Drainage Total 35 ml 70 ml 5 ml 0 ml 180 ml # Voids 3 4 4 # Bowel Movements 0 0 Result Diagram: 09/06/16 0345 09/06/16344 Objective Remarks - - GENERAL: This is Cabrera elderly female well-developed patient, in in mild chest wall pain HEAD: Atraumatic. Normocephalic. EYES: Pupils equal round and reactive. Extraocular motions intact. No scleral icterus. ENT: Nose without bleeding, or drainage, Airway patent. NECK: Trachea midline. Supple CARDIOVASCULAR: Regular rate and rhythm without murmurs, gallops, or rubs. PATTI drain in place RESPIRATORY: Fair air entry bilaterally. No wheezes, rales, or rhonchi. GASTROINTESTINAL: Abdomen soft, non-tender, nondistended. Positive bowel sounds MUSCULOSKELETAL: Extremities without clubbing, cyanosis, or edema. Pedal pulses appreciated NEUROLOGICAL: Awake and alert. Moves all extremity. Normal speech.no focal neurological deficit Procedures None A/P Problem List: (1) Supratherapeutic INR ICD Code: R79.1 Status: Resolved (2) Coumadin toxicity ICD Code: T45.511A Status: Resolved (3) History of mechanical aortic valve replacement ICD Code: Z95.2 Status: Chronic (4) Chest wall hematoma ICD Code: S20.219A Status: Acute (5) Contusion of right arm ICD Code: S40.021A Status: Acute (6) Acute renal failure ICD Code: N17.9 Status: Acute (7) Anemia due to acute blood loss ICD Code: D62 Status: Acute Assessment and Plan 1. Fall with right arm contusion, chest wall hematoma: Hematoma was enlarging yesterday and patient's H/H was dropping. S/P irrigation and drainage of the hematoma, POD#1. Appreciate general surgery recommendations. 2. Coumadin toxicity: Resolved. Given 4 units of FFP yesterday. INR now subtherapeutic. Patient is on Coumadin chronically for mechanical aortic valve. Will restart anticoagulation when OK with surgery. Mostly in a.m. 3. Seizure disorder: Continue Keppra. 4. Thoracic aortic aneurysm: Appreciate cardiothoracic surgery recommendations. Continue medical management. No surgical intervention due to advanced age, high risk. 5. History of diastolic congestive heart failure: Currently asymptomatic. 6. Acute renal failure: Continue gentle IV fluid hydration, using caution secondary to patient's history of CHF. BUN and creatinine are improving. 7. DVT prophylaxis: INR is supratherapeutic. 8. Anemia secondary to acute blood loss: Status post transfusion of 2 units PRBCs. H/H improved and remained stable overnight. Had been decreasing yesterday prior to surgery. 9. CODE STATUS: Full code. Problem Qualifiers (1) Coumadin toxicity: Qualified Code: T45.511A - Coumadin toxicity, accidental or unintentional, initial encounter (2) Chest wall hematoma: Qualified Code: S20.211A - Chest wall hematoma, right, initial encounter (3) Contusion of right arm: Qualified Code: S40.021A - Contusion of right arm, initial encounter Sirisha Ramirez MD Sep 06, 2016 16:13
[2016-09-06] MEDS: ACETAMINOPHEN/HYDROcodone 325 MG/5 MG TAB PO PRN (18:03)
[2016-09-06] MEDS: GABAPENTIN 300 MG CAP PO SCH (20:23)
[2016-09-06] MEDS: MIRTAZAPINE 15 MG TAB PO SCH (20:23)
[2016-09-06] MEDS: ACETAMINOPHEN/HYDROcodone 325 MG/7.5 MG TAB PO PRN (22:23)
[2016-09-07] VITALS (10 sets, daily range): BP systolic 95–147; BP diastolic 52–81; PULSE 18–96; RESP 16–21; TEMP 96–97.6; O2SAT 93–98
[2016-09-07] MEDS: ACETAMINOPHEN/HYDROcodone 325 MG/7.5 MG TAB PO PRN ×3 (04:24→15:16)
[2016-09-07 05:38] LABS: HEMATOCRIT 28.2 % (35.0-46.0); REVIEW FLAG FINAL
[2016-09-07 06:02] LABS: BICARBONATE 31.2 MEQ/L (21.0-32.0); POTASSIUM 4.4 MEQ/L (3.5-5.1)
--- NOTE | 2016-09-07 07:41 | PD.CARD.PN ---
Subjective Subjective Remarks Pt without complaints Objective Medications Current Medications Medications (Trade) Dose Ordered Sig/Deidre Route Start Time Stop Time Status Last Admin (Neurontin) 300 mg HS PO 09/03/16 21:00 09/06/16 20:23 (Keppra) 500 mg BID PO 09/03/16 21:00 09/06/16 20:23 (Antivert) 25 mg TID PRN PO 09/03/16 14:30 (Remeron) 7.5 mg HS PO 09/03/16 21:00 09/06/16 20:23 (Tylenol) 650 mg Q4H PRN PO 09/03/16 14:30 (Zofran Inj) 4 mg Q6H PRN IVP 09/03/16 14:30 (Milk Of Magnesia Liq) 30 ml Q12H PRN PO 09/03/16 14:30 (Tylenol) 650 mg Q6H PRN PO 09/03/16 14:30 (Union 5-325 Mg) 1 tab Q4H PRN PO 09/03/16 14:30 09/06/16 18:03 (Union 7.5-325 Mg) 1 tab Q4H PRN PO 09/03/16 14:30 09/07/16 04:24 (Narcan Inj) 0.4 mg UNSCH PRN IV 09/03/16 14:30 (Morphine Inj) 1 mg Q3H PRN IV PUSH 09/04/16 15:15 09/06/16 15:58 Vital Signs / I&O Vital Signs Date Time Temp Pulse Resp B/P Pulse Ox O2 Delivery O2 Flow Rate FiO2 09/07/16 04:12 96.2 82 16 118/58 98 09/07/16 01:22 76 09/07/16 01:15 96 Nasal Cannula 2.00 09/07/16 01:05 96.9 80 16 118/55 96 09/07/16 00:00 97.6 77 21 131/60 96 09/07/16 00:00 77 09/06/16 20:21 96 Nasal Cannula 3.00 09/06/16 20:00 86 09/06/16 20:00 98.5 86 28 122/58 94 09/06/16 19:03 22 09/06/16 19:00 93 Nasal Cannula 3.00 09/06/16 18:00 94 09/06/16 16:09 24 09/06/16 16:00 98.3 92 34 130/59 94 09/06/16 16:00 92 09/06/16 14:00 86 09/06/16 12:00 98.5 84 29 110/44 94 09/06/16 12:00 84 09/06/16 10:00 90 09/06/16 08:22 95 Nasal Cannula 3.00 09/06/16 08:00 83 09/06/16 08:00 98.8 83 27 142/56 97 I/O 09/06/16 09/06/16 09/06/16 09/07/16 09/07/16 09/07/16 07:00 15:00 23:00 07:00 15:00 23:00 Intake Total 614 ml 900 ml 30 ml 240 ml Output Total 0 ml 180 ml 65 ml 10 ml Balance 614 ml 720 ml -35 ml 230 ml Intake Oral 500 ml 30 ml 240 ml IV Total 614 ml 400 ml 0 ml Drainage Total 0 ml 180 ml 65 ml 10 ml # Voids 4 4 4 1 # Bowel Movements 0 0 Physical Exam GENERAL: Well developed, well nourished. No acute distress. HEENT: Jugular venous pressure is normal. CHEST: Lungs clear to auscultation bilaterally. Unlabored respiratory effort. CARDIAC: Regular rate and rhythm mechanical S1 ABDOMEN: Soft, Bowel sounds present. EXTREMITIES: No clubbing, cyanosis, or edema. Laboratory Laboratory Tests Test 09/07/16 05:04 Hemoglobin 9.6 GM/DL Hematocrit 28.2 % Sodium Level 137 MEQ/L Potassium Level 4.4 MEQ/L Chloride Level 101 MEQ/L Carbon Dioxide Level 31.2 MEQ/L Anion Gap 5 MEQ/L Blood Urea Nitrogen 14 MG/DL Creatinine 0.52 MG/DL Estimat Glomerular Filtration 112 ML/MIN Rate Random Glucose 108 MG/DL Calcium Level 8.4 MG/DL Assessment and Plan Assessment and Plan hx mechanical AVR- pt off anticoagulants secondary to hematoma -heart tone are stable for AVR -restart anticoagulation today, coumadin, stop heparin when INR >1.9; further management per primary hematoma- large right chest wall hematoma s/p resection -per surgery Available Lyn Tsang MD Sep 07, 2016 07:41
[2016-09-07] MEDS: levETIRAcetam 500 MG TAB PO SCH ×2 (07:42→19:49)
[2016-09-07] MEDS ORDERED: HEPARIN SODIUM - IV 10,000 UNITS/10 ML VIAL IV ONE (08:00)
[2016-09-07 08:46] LABS: HEMATOCRIT 26.7 % (35.0-46.0); MEAN CELL VOLUME 89.3 FL (80.0-100.0); MEAN CORPUSCULAR HEMOGLOBIN 30.1 PG (27.0-34.0); MEAN CORPUSCULAR HGB CONC 33.7 % (32.0-36.0); PLATELET COUNT 321 TH/MM3 (150-450); RED BLOOD COUNT 2.99 MIL/MM3 (4.00-5.30); RED CELL DISTRIBUTION WIDTH 14.8 % (11.6-17.2); REVIEW FLAG FINAL; WHITE BLOOD COUNT 9.7 TH/MM3 (4.0-11.0)
[2016-09-07] MEDS: HEPARIN-D5W INJ 250 ML IV SCH (08:46)
[2016-09-07 08:57] LABS: PROTHROMBIN TIME - PATIENT 10.5 SEC (9.8-11.6)
[2016-09-07] MEDS: RESP: ALBUTEROL 2.5 MG/IPRATROPIUM 0.5 MG NEB (SCH) NEB ×3 (09:11→15:48)
--- NOTE | 2016-09-07 12:30 | HHI.PR ---
Subjective Subjective Notes Up to chair Sleeping Pain controlled Objective Vitals/I&O Vital Signs Date Time Temp Pulse Resp B/P Pulse Ox O2 Delivery O2 Flow Rate FiO2 09/07/16 11:44 96.1 85 18 95/52 95 09/07/16 09:15 Nasal Cannula 3.00 Labs Laboratory Tests Test 09/07/16 09/07/16 05:04 08:28 Hemoglobin 9.6 9.0 Hematocrit 28.2 26.7 Sodium Level 137 Potassium Level 4.4 Chloride Level 101 Carbon Dioxide Level 31.2 Anion Gap 5 Blood Urea Nitrogen 14 Creatinine 0.52 Estimat Glomerular Filtration 112 Rate Random Glucose 108 Calcium Level 8.4 White Blood Count 9.7 Red Blood Count 2.99 Mean Corpuscular Volume 89.3 Mean Corpuscular Hemoglobin 30.1 Mean Corpuscular Hemoglobin 33.7 Concent Red Cell Distribution Width 14.8 Platelet Count 321 Mean Platelet Volume 7.4 Prothrombin Time 10.5 Prothromb Time International 1.0 Ratio Activated Partial 25.0 Thromboplast Time Cardiovascular: Regular Lungs: Clear Abdomen: Non-distended, Non-tender Narrative Exam RIGHT chest/breast with ecchymosis---PATTI in place with minimal thin bloody drainage in bulb A/P Assessment and Plan 85 year old female POD3 I&D RIGHT chest wall hematoma -Regular diet -OOB -Hmg stable (9.0 today) -Okay to start Coumadin today (with NO loading dose) -Must monitor hmg and clinical status closely as patient has a large risk of bleeding Attending Note - Dr. Napoles Patient doing remarkably well Chest wall swelling much improved; Hb stable Keep drain in for now. The exam, history, and the medical decision-making described in the above note were completed with the assistance of the mid-level provider. I reviewed and agree with the findings presented. I attest that I had a [id number] encounter with the patient on the same day, and personally performed and documented my assessment and findings in the medical record. Jessica Hahn Sep 07, 2016 12:29 Linwood Napoles MD Sep 07, 2016 19:20
[2016-09-07] MEDS ORDERED: HEPARIN SODIUM - IV 10,000 UNITS/10 ML VIAL IV PRN ×2 (13:45)
[2016-09-07] MEDS: WARFARIN SOD 2 MG TAB PO SCH (15:16)
[2016-09-07 15:44] LABS: APTT (PATIENT) 31.7 SEC (24.3-30.1)
--- NOTE | 2016-09-07 17:20 | HHI.PR ---
Subjective Remarks Follow up on chest wall hematoma and history of metallic valve replacement Patient started on heparin drip per cardiology, I received a call from the surgery HEALTH CARE TECHNICIAN discussing this issue, they will discuss with the paper bag inspector, so far no signs of bleeding, they will follow the drainer tube. Coumadin bridging to goal Patient today was resting on a chair denied any pain or short of breath, she is afebrile Objective Vitals Vital Signs Date Time Temp Pulse Resp B/P Pulse Ox O2 Delivery O2 Flow Rate FiO2 09/07/16 15:48 95 Nasal Cannula 3.00 09/07/16 15:00 97.1 94 18 105/61 93 09/07/16 11:44 96.1 85 18 95/52 95 09/07/16 09:15 93 Nasal Cannula 3.00 09/07/16 08:06 96.0 18 20 147/81 96 09/07/16 07:42 Nasal Cannula 2.00 09/07/16 04:12 96.2 82 16 118/58 98 09/07/16 01:22 76 09/07/16 01:15 96 Nasal Cannula 2.00 09/07/16 01:05 96.9 80 16 118/55 96 09/07/16 00:00 97.6 77 21 131/60 96 09/07/16 00:00 77 09/06/16 20:21 96 Nasal Cannula 3.00 09/06/16 20:00 86 09/06/16 20:00 98.5 86 28 122/58 94 09/06/16 19:03 22 09/06/16 19:00 93 Nasal Cannula 3.00 09/06/16 18:00 94 I/O 09/06/16 09/06/16 09/06/16 09/07/16 09/07/16 09/07/16 07:00 15:00 23:00 07:00 15:00 23:00 Intake Total 614 ml 900 ml 30 ml 240 ml 360 ml Output Total 0 ml 180 ml 65 ml 10 ml 45 ml Balance 614 ml 720 ml -35 ml 230 ml 315 ml Intake Oral 500 ml 30 ml 240 ml 360 ml IV Total 614 ml 400 ml 0 ml Drainage Total 0 ml 180 ml 65 ml 10 ml 45 ml # Voids 4 4 4 1 2 # Bowel Movements 0 0 Result Diagram: 09/07/16 0828 09/07/16 0504 Objective Remarks - - GENERAL: This is Cabrera elderly female well-developed patient, in in mild chest wall pain HEAD: Atraumatic. Normocephalic. EYES: Pupils equal round and reactive. Extraocular motions intact. No scleral icterus. ENT: Nose without bleeding, or drainage, Airway patent. NECK: Trachea midline. Supple CARDIOVASCULAR: Regular rate and rhythm without murmurs, gallops, or rubs. PATTI drain in place RESPIRATORY: Fair air entry bilaterally. No wheezes, rales, or rhonchi. GASTROINTESTINAL: Abdomen soft, non-tender, nondistended. Positive bowel sounds MUSCULOSKELETAL: Extremities without clubbing, cyanosis, or edema. Pedal pulses appreciated NEUROLOGICAL: Awake and alert. Moves all extremity. Normal speech.no focal neurological deficit Procedures None A/P Problem List: (1) Supratherapeutic INR ICD Code: R79.1 Status: Resolved (2) Coumadin toxicity ICD Code: T45.511A Status: Resolved (3) History of mechanical aortic valve replacement ICD Code: Z95.2 Status: Chronic (4) Chest wall hematoma ICD Code: S20.219A Status: Acute (5) Contusion of right arm ICD Code: S40.021A Status: Acute (6) Acute renal failure ICD Code: N17.9 Status: Acute (7) Anemia due to acute blood loss ICD Code: D62 Status: Acute Assessment and Plan 1. Fall with right arm contusion, chest wall hematoma: Hematoma was enlarging yesterday and patient's H/H was dropping. S/P irrigation and drainage of the hematoma, Appreciate general surgery recommendations. 2. Coumadin toxicity: Resolved. Given 4 units of FFP yesterday. INR now subtherapeutic. Patient is on Coumadin chronically for mechanical aortic valve. Started on heparin drip and Coumadin per cardiology, surgery following to monitor for any bleeding, I discussed with surgery HEALTH CARE TECHNICIAN 3. Seizure disorder: Continue Keppra. 4. Thoracic aortic aneurysm: Appreciate cardiothoracic surgery recommendations. Continue medical management. No surgical intervention due to advanced age, high risk. 5. History of diastolic congestive heart failure: Currently asymptomatic. 6. Acute renal failure: Continue gentle IV fluid hydration, using caution secondary to patient's history of CHF. BUN and creatinine are improving. 7. DVT prophylaxis: INR is supratherapeutic. 8. Anemia secondary to acute blood loss: Status post transfusion of 2 units PRBCs. H/H improved and remained stable overnight. Had been decreasing yesterday prior to surgery. 9. CODE STATUS: Full code. Problem Qualifiers (1) Coumadin toxicity: Qualified Code: T45.511A - Coumadin toxicity, accidental or unintentional, initial encounter (2) Chest wall hematoma: Qualified Code: S20.211A - Chest wall hematoma, right, initial encounter (3) Contusion of right arm: Qualified Code: S40.021A - Contusion of right arm, initial encounter Sirisha Ramirez MD Sep 07, 2016 17:20
[2016-09-07] MEDS: GABAPENTIN 300 MG CAP PO SCH (19:49)
[2016-09-07] MEDS: MIRTAZAPINE 15 MG TAB PO SCH (19:49)
[2016-09-07 22:37] LABS: APTT (PATIENT) 35.6 SEC (24.3-30.1)
[2016-09-08] VITALS (8 sets, daily range): BP systolic 102–161; BP diastolic 56–82; PULSE 82–98; RESP 18–22; TEMP 95.7–97.8; O2SAT 92–98
[2016-09-08 04:32] LABS: HEMATOCRIT 29.3 % (35.0-46.0); REVIEW FLAG FINAL
[2016-09-08] MEDS: ACETAMINOPHEN/HYDROcodone 325 MG/7.5 MG TAB PO PRN ×3 (04:36→15:59)
[2016-09-08 04:40] LABS: APTT (PATIENT) 39.2 SEC (24.3-30.1)
[2016-09-08] MEDS: levETIRAcetam 500 MG TAB PO SCH ×2 (07:57→19:31)
[2016-09-08 10:29] LABS: APTT (PATIENT) 45.2 SEC (24.3-30.1)
[2016-09-08] MEDS: HEPARIN-D5W INJ 250 ML IV SCH (10:47)
[2016-09-08] MEDS: ACETAMINOPHEN 325 MG TAB PO PRN (13:04)
--- NOTE | 2016-09-08 13:53 | HHI.PR ---
Subjective Remarks Follow-up Coumadin toxicity/right chest wall hematoma 09/08/16-patient seen and examined, complains of back pain mostly on the right side. Patient somehow confused but alert. I spoke to patient's son Fred . Objective Vitals Vital Signs Date Time Temp Pulse Resp B/P Pulse Ox O2 Delivery O2 Flow Rate FiO2 09/08/16 12:00 97.8 89 18 102/58 93 09/08/16 09:48 17 09/08/16 09:33 92 Nasal Cannula 3.00 09/08/16 08:00 95.7 90 18 161/75 98 09/08/16 07:57 Nasal Cannula 2.00 09/08/16 04:00 97.2 98 20 128/82 95 09/08/16 00:00 97.4 82 20 132/76 97 09/07/16 21:17 Nasal Cannula 2.00 09/07/16 19:58 96 09/07/16 15:48 95 Nasal Cannula 3.00 09/07/16 15:00 97.1 94 18 105/61 93 I/O 09/07/16 09/07/16 09/07/16 09/08/16 09/08/16 09/08/16 07:00 15:00 23:00 07:00 15:00 23:00 Intake Total 240 ml 360 ml 453 ml 266 ml Output Total 10 ml 45 ml 20 ml Balance 230 ml 315 ml 433 ml 266 ml Intake Oral 240 ml 360 ml 360 ml 180 ml IV Total 0 ml Other 93 ml 86 ml Drainage Total 10 ml 45 ml 20 ml # Voids 1 2 4 3 # Bowel Movements 0 0 Result Diagram: 09/08/16 0323 09/07/16 0504 Imaging Last Impressions Consultation 09/04/16 1435 Signed Impressions: Service Date/Time: Sunday, September 04, 2016 14:35 - CONCLUSION: The complex right chest wall hematoma appears to be deep to the pectoralis major muscle. We could attempt drainage if needed clinically. Typically with a hematoma of this age and complex appearance we are usually unsuccessful at draining a significant portion of the hematoma. However, this could be attempted if needed clinically. Findings were discussed with Dr. [place]. Ganga Patel MD Radius/Ulna X-Ray 09/03/16 1103 Signed Impressions: Service Date/Time: Saturday, September 03, 2016 11:28 - CONCLUSION: No acute bony injury Cirilo Christensen MD Humerus X-Ray 09/03/16 1103 Signed Impressions: Service Date/Time: Saturday, September 03, 2016 11:25 - CONCLUSION: Unremarkable examination of the right humerus. Cirilo Christensen MD Chest X-Ray 09/03/16 1103 Signed Impressions: Service Date/Time: Saturday, September 03, 2016 11:24 - CONCLUSION: No acute disease. Orville Dominguez Jr., MD Chest CT 09/03/16 1103 Signed Impressions: Service Date/Time: Saturday, September 03, 2016 12:39 - CONCLUSION: Large right breast/chest wall mass may simply be large hematoma, however underlying neoplastic process should additionally be considered and either close clinical and mammographic followup or additional short-term evaluation with pre-and postcontrast MRI may be beneficial. 5.7 cm aneurysm of the ascending thoracic aorta. Ganga Michael MD Objective Remarks GENERAL: NAD SKIN: Warm and dry. Right chest wall hematoma HEAD: Normocephalic. EYES: No scleral icterus. No injection or drainage. NECK: Supple, trachea midline. No JVD or lymphadenopathy. CARDIOVASCULAR: Irregular Regular rate and rhythm without murmurs, gallops, or rubs. RESPIRATORY: Breath sounds equal bilaterally. No accessory muscle use. GASTROINTESTINAL: Abdomen soft, non-tender, nondistended. MUSCULOSKELETAL: No cyanosis, or edema. BACK: Nontender without obvious deformity. No CVA tenderness. Procedures Right chest wall hematoma evacuation A/P Problem List: (1) Supratherapeutic INR ICD Code: R79.1 Status: Resolved (2) Coumadin toxicity ICD Code: T45.511A Status: Resolved (3) History of mechanical aortic valve replacement ICD Code: Z95.2 Status: Chronic (4) Chest wall hematoma ICD Code: S20.219A Status: Acute (5) Contusion of right arm ICD Code: S40.021A Status: Acute (6) Acute renal failure ICD Code: N17.9 Status: Acute (7) Anemia due to acute blood loss ICD Code: D62 Status: Acute Assessment and Plan 85-year-old female with 1. Right chest wall hematoma: S/P irrigation and drainage of the hematoma, Appreciate general surgery recommendations. 2. Coumadin toxicity: Resolved. Given 4 units of FFP . Patient is on Coumadin chronically for mechanical aortic valve. Currently on heparin drip with Coumadin 3. Mechanical AVR: On heparin drip with Coumadin; DC heparin when INR>1.9 4. Seizure disorder: Continue Keppra. 5. Thoracic aortic aneurysm: Appreciate cardiothoracic surgery recommendations. Continue medical management. No surgical intervention due to advanced age, high risk. 6. History of diastolic congestive heart failure: Currently asymptomatic. 7. Acute renal failure: Continue gentle IV fluid hydration, using caution secondary to patient's history of CHF. BUN and creatinine are improving. 8. DVT prophylaxis: Heparin drip with Coumadin 8. Anemia secondary to acute blood loss: Status post transfusion of 2 units PRBCs. Monitor H&H Problem Qualifiers (1) Coumadin toxicity: Qualified Code: T45.511A - Coumadin toxicity, accidental or unintentional, initial encounter (2) Chest wall hematoma: Qualified Code: S20.211A - Chest wall hematoma, right, initial encounter (3) Contusion of right arm: Qualified Code: S40.021A - Contusion of right arm, initial encounter Arthur Akbar MD Sep 08, 2016 13:53
[2016-09-08] MEDS: WARFARIN SOD 1 MG TAB PO SCH (15:59)
[2016-09-08 19:08] LABS: APTT (PATIENT) 47.9 SEC (24.3-30.1)
[2016-09-08] MEDS: MIRTAZAPINE 15 MG TAB PO SCH (19:31)
[2016-09-08] MEDS: GABAPENTIN 300 MG CAP PO SCH (19:31)
--- NOTE | 2016-09-08 23:09 | HHI.PR ---
Subjective Subjective Notes pain ok no new c/o Objective Vitals/I&O Vital Signs Date Time Temp Pulse Resp B/P Pulse Ox O2 Delivery O2 Flow Rate FiO2 09/08/16 20:00 Nasal Cannula 2.00 09/08/16 20:00 97.6 87 21 111/56 96 Labs Laboratory Tests Test 09/08/16 09/08/16 09/08/16 03:23 09:48 18:21 Hemoglobin 9.9 Hematocrit 29.3 Activated Partial 39.2 45.2 47.9 Thromboplast Time Cardiovascular: Regular Lungs: Clear Abdomen: Non-distended, Non-tender Extremities: No edema Narrative Exam right chest wall with ecchymosis, no recurrent hematoma Simon Pearson MD Sep 08, 2016 23:08
[2016-09-09] VITALS (8 sets, daily range): BP systolic 101–122; BP diastolic 55–80; PULSE 78–92; RESP 16–21; TEMP 96–96.9; O2SAT 92–98
[2016-09-09] MEDS: ACETAMINOPHEN/HYDROcodone 325 MG/7.5 MG TAB PO PRN ×4 (05:07→20:12)
[2016-09-09] MEDS: HEPARIN-D5W INJ 250 ML IV SCH (05:12)
[2016-09-09 07:00] LABS: HEMATOCRIT 30.6 % (35.0-46.0); REVIEW FLAG FINAL
[2016-09-09 07:17] LABS: APTT (PATIENT) 43.2 SEC (24.3-30.1)
[2016-09-09 07:24] LABS: PROTHROMBIN TIME - PATIENT 11.3 SEC (9.8-11.6)
[2016-09-09] MEDS: levETIRAcetam 500 MG TAB PO SCH ×2 (08:05→20:12)
--- NOTE | 2016-09-09 10:18 | HHI.PR ---
Subjective Remarks Follow-up Coumadin toxicity/right chest wall hematoma 09/08/16-patient seen and examined, complains of back pain mostly on the right side. Patient somehow confused but alert. I spoke to patient's son Fred [phone]. 09/09/16-patient seen and examined, denies currently any headache or right flank pain. Stable. Afebrile Objective Vitals Vital Signs Date Time Temp Pulse Resp B/P Pulse Ox O2 Delivery O2 Flow Rate FiO2 09/09/16 08:04 Nasal Cannula 2.00 09/09/16 08:00 96.9 80 16 101/80 93 09/09/16 04:00 96.0 92 20 122/68 95 09/09/16 00:03 96.9 86 21 114/61 98 09/08/16 20:00 Nasal Cannula 2.00 09/08/16 20:00 97.6 87 21 111/56 96 09/08/16 19:37 82 09/08/16 16:59 17 09/08/16 16:00 97.1 86 22 114/57 92 09/08/16 14:04 17 09/08/16 12:00 97.8 89 18 102/58 93 I/O 09/08/16 09/08/16 09/08/16 09/09/16 09/09/16 09/09/16 07:00 15:00 23:00 07:00 15:00 23:00 Intake Total 266 ml 459 ml 424 ml 231 ml Output Total 0 ml 0 ml Balance 266 ml 459 ml 424 ml 231 ml Intake Oral 180 ml 360 ml 360 ml 120 ml IV Total 0 ml Other 86 ml 99 ml 64 ml 111 ml Drainage Total 0 ml 0 ml # Voids 3 3 3 3 # Bowel Movements 0 0 0 0 Result Diagram: 09/09/16 0605 09/07/16 0504 Objective Remarks GENERAL: NAD SKIN: Warm and dry. Right chest wall hematoma HEAD: Normocephalic. EYES: No scleral icterus. No injection or drainage. NECK: Supple, trachea midline. No JVD or lymphadenopathy. CARDIOVASCULAR: Irregular Regular rate and rhythm without murmurs, gallops, or rubs. RESPIRATORY: Breath sounds equal bilaterally. No accessory muscle use. GASTROINTESTINAL: Abdomen soft, non-tender, nondistended. MUSCULOSKELETAL: No cyanosis, or edema. BACK: Nontender without obvious deformity. No CVA tenderness. Procedures Right chest wall hematoma evacuation A/P Problem List: (1) Supratherapeutic INR ICD Code: R79.1 Status: Resolved (2) Coumadin toxicity ICD Code: T45.511A Status: Resolved (3) History of mechanical aortic valve replacement ICD Code: Z95.2 Status: Chronic (4) Chest wall hematoma ICD Code: S20.219A Status: Acute (5) Contusion of right arm ICD Code: S40.021A Status: Acute (6) Acute renal failure ICD Code: N17.9 Status: Acute (7) Anemia due to acute blood loss ICD Code: D62 Status: Acute Assessment and Plan 85-year-old female with 1. Right chest wall hematoma: S/P irrigation and drainage of the hematoma, Appreciate general surgery recommendations. 2. Coumadin toxicity: Resolved. Given 4 units of FFP . Patient is on Coumadin chronically for mechanical aortic valve. Currently on heparin drip with Coumadin 3. Mechanical AVR: On heparin drip with Coumadin; DC heparin when INR>1.9 4. Seizure disorder: Continue Keppra. 5. Thoracic aortic aneurysm: Appreciate cardiothoracic surgery recommendations. Continue medical management. No surgical intervention due to advanced age, high risk. 6. History of diastolic congestive heart failure: Currently asymptomatic. 7. Acute renal failure: Resolved with IV fluid hydration 8. DVT prophylaxis: Heparin drip with Coumadin 8. Anemia secondary to acute blood loss: Status post transfusion of 2 units PRBCs. Monitor H&H Problem Qualifiers (1) Coumadin toxicity: Qualified Code: T45.511A - Coumadin toxicity, accidental or unintentional, initial encounter (2) Chest wall hematoma: Qualified Code: S20.211A - Chest wall hematoma, right, initial encounter (3) Contusion of right arm: Qualified Code: S40.021A - Contusion of right arm, initial encounter Arthur Akbar MD Sep 09, 2016 10:18
[2016-09-09 12:41] LABS: PROTHROMBIN TIME - PATIENT 11.6 SEC (9.8-11.6)
--- NOTE | 2016-09-09 12:41 | HHI.PR ---
Subjective Subjective Notes DAILY PROGRESS NOTE FOR SURGICAL ATTENDING, DR. RAO CASSIDY I feel better today Objective Vitals/I&O 09/08/16 09/08/16 09/09/16 15:00 23:00 07:00 Intake Total 459 ml 424 ml 231 ml Output Total 0 ml 0 ml Balance 459 ml 424 ml 231 ml Intake Oral 360 ml 360 ml 120 ml IV Total 0 ml Other 99 ml 64 ml 111 ml Drainage Total 0 ml 0 ml # Voids 3 3 3 # Bowel Movements 0 0 0 Vital Signs Date Time Temp Pulse Resp B/P Pulse Ox O2 Delivery O2 Flow Rate FiO2 09/09/16 11:05 18 09/09/16 08:04 Nasal Cannula 2.00 09/09/16 08:00 96.9 80 101/80 93 Labs Laboratory Tests Test 09/08/16 09/09/16 18:21 06:05 Activated Partial 47.9 43.2 Thromboplast Time Hemoglobin 10.2 Hematocrit 30.6 Prothrombin Time 11.3 Prothromb Time International 1.0 Ratio Radiology Last Impressions Consultation 09/04/16 8435 Signed Impressions: Service Date/Time: Sunday, September 04, 2016 14:35 - CONCLUSION: The complex right chest wall hematoma appears to be deep to the pectoralis major muscle. We could attempt drainage if needed clinically. Typically with a hematoma of this age and complex appearance we are usually unsuccessful at draining a significant portion of the hematoma. However, this could be attempted if needed clinically. Findings were discussed with Dr. Spain. Ganga Patel MD Radius/Ulna X-Ray 09/03/161102 Signed Impressions: Service Date/Time: Saturday, September 03, 2016 11:28 - CONCLUSION: No acute bony injury Cirilo Christensen MD Humerus X-Ray 09/03/161102 Signed Impressions: Service Date/Time: Saturday, September 03, 2016 11:25 - CONCLUSION: Unremarkable examination of the right humerus. Cirilo Christensen MD Chest X-Ray 09/03/161102 Signed Impressions: Service Date/Time: Saturday, September 03, 2016 11:24 - CONCLUSION: No acute disease. Orville Dominguez Jr., MD Chest CT 09/03/161102 Signed Impressions: Service Date/Time: Saturday, September 03, 2016 12:39 - CONCLUSION: Large right breast/chest wall mass may simply be large hematoma, however underlying neoplastic process should additionally be considered and either close clinical and mammographic followup or additional short-term evaluation with pre-and postcontrast MRI may be beneficial. 5.7 cm aneurysm of the ascending thoracic aorta. Ganga Michael MD A/P Problem List: (1) Chest wall hematoma (2) Coumadin toxicity (3) Coagulopathy (4) Fall (5) Generalized weakness (6) Failure to thrive (7) Supratherapeutic INR (8) History of mechanical aortic valve replacement Assessment and Plan DAILY PROGRESS NOTE FOR SURGICAL ATTENDING, DR. RAO CASSIDY 85-year-old female who fell who was supra therapeutic on her Coumadin and developed a large hematoma requiring drainage Minimal output from PATTI Continue current management Problem Qualifiers (1) Chest wall hematoma: Qualified Code: S20.211A - Chest wall hematoma, right, initial encounter (2) Coumadin toxicity: Qualified Code: T45.511A - Coumadin toxicity, accidental or unintentional, initial encounter Rao Cassidy MD Sep 09, 2016 12:41
[2016-09-09] MEDS: RESP: ALBUTEROL 2.5 MG/3 ML NEB (PRN) NEB ×2 (13:18→21:17)
[2016-09-09] MEDS: WARFARIN SOD 1 MG TAB PO SCH (15:54)
[2016-09-09] MEDS: MIRTAZAPINE 15 MG TAB PO SCH (20:11)
[2016-09-09] MEDS: GABAPENTIN 300 MG CAP PO SCH (20:17)
[2016-09-10] VITALS (11 sets, daily range): BP systolic 107–125; BP diastolic 55–64; PULSE 74–93; RESP 19–24; TEMP 96–98; O2SAT 91–98
[2016-09-10] MEDS: RESP: ALBUTEROL 2.5 MG/3 ML NEB (PRN) NEB (04:27)
[2016-09-10] MEDS: ACETAMINOPHEN/HYDROcodone 325 MG/7.5 MG TAB PO PRN (05:15)
[2016-09-10] MEDS: HEPARIN-D5W INJ 250 ML IV SCH (05:17)
[2016-09-10 05:23] LABS: HEMATOCRIT 31.6 % (35.0-46.0); MEAN CORPUSCULAR HEMOGLOBIN 28.9 PG (27.0-34.0); MEAN CORPUSCULAR HGB CONC 32.1 % (32.0-36.0); PLATELET COUNT 429 TH/MM3 (150-450); RED BLOOD COUNT 3.51 MIL/MM3 (4.00-5.30); RED CELL DISTRIBUTION WIDTH 14.4 % (11.6-17.2); REVIEW FLAG FINAL; WHITE BLOOD COUNT 11.2 TH/MM3 (4.0-11.0)
[2016-09-10 05:33] LABS: BLOOD GAS BASE EXCESS 3.5 mmol/L (-2-2); BLOOD GAS CARBOXYHEMOGLOBIN 2.2 % (0-4); BLOOD GAS HCO3 27 mmol/L (22-26); BLOOD GAS METHEMOGLOBIN 0.7 % (0-2); BLOOD GAS O2 HGB SATURATION 89 % (90-100); BLOOD GAS OXYGEN CONTENT 22.2 Vol % (12.0-20.0); BLOOD GAS PCO2 41 mmHg (38-42); BLOOD GAS PO2 63 mmHg (61-120); BLOOD GAS TOTAL HGB 17.8 G/DL (12.0-16.0); TEMP CORR TO 98.6
[2016-09-10 05:34] LABS: CRITICAL VALUE YES; DRAW SITE RT RADIAL; LITER FLOW 6 L/M; NUMBER OF ARTERIAL PUNCTURES 1; OXYGEN DEVICE Venti Mask; STAT YES; ULNAR PULSE PRESENT
[2016-09-10 05:38] LABS: APTT (PATIENT) 54.3 SEC (24.3-30.1); PROTHROMBIN TIME - PATIENT 11.6 SEC (9.8-11.6)
[2016-09-10 05:44] LABS: BICARBONATE 31.2 MEQ/L (21.0-32.0); POTASSIUM 4.4 MEQ/L (3.5-5.1)
[2016-09-10 05:45] LABS: FIO2 50 %
--- NOTE | 2016-09-10 06:13 | RADRPT ---
EXAM DATE/TIME: 09/10/2016 05:04 [facility] COMPARISON: No previous studies available for comparison. INDICATIONS : Congestion. MEDICAL HISTORY : Cardiovascular disease. Stroke. SURGICAL HISTORY : CABG. ENCOUNTER: Subsequent ACUITY: 1 week PAIN SCORE: 0/10 LOCATION: Bilateral chest FINDINGS: A single view of the chest demonstrates left-sided retrocardiac density which could represent atelect asis or a pneumonia. Minimal right basilar atelectasis. Drain in right chest wall. No pneumothorax. P revious median sternotomy. Cardiomegaly. CONCLUSION: 1. Left-sided retrocardiac density characteristic of atelectasis or pneumonia. Mild right basilar air space disease. Previous median sternotomy. Drain in right chest wall. Rao Bolanos MD on September 10, 2016 at 6:08 Board Certified Radiologist. This report was verified electronically.
[2016-09-10] MEDS: RESP: ALBUTEROL 2.5 MG/IPRATROPIUM 0.5 MG NEB (SCH) NEB ×4 (06:15→21:21)
[2016-09-10] MEDS ORDERED: VANCOMYCIN INJ 1,000 MG in SODIUM CHLOR 0.9% 250 ML INJ 250 ML IV ONE (06:30)
[2016-09-10] MEDS ORDERED: Vancomycin Consult Pharmacy 1 EA OTHER SCH (06:30)
[2016-09-10] MEDS: CEFEPIME INJ 2,000 MG in SODIUM CHLORIDE 0.9% INJ 100 ML IV SCH ×3 (09:45→21:07)
[2016-09-10] MEDS: levETIRAcetam 500 MG TAB PO SCH ×2 (09:46→21:03)
--- NOTE | 2016-09-10 10:47 | HHI.PR ---
Subjective Subjective Notes Seen resting in bed with venti mask on Patient cannot recall when they put Venti Mask on Objective Vitals/I&O Vital Signs Date Time Temp Pulse Resp B/P Pulse Ox O2 Delivery O2 Flow Rate FiO2 09/10/16 08:00 98.0 75 24 121/64 95 09/10/16 05:21 Venturi Mask 6.00 50 Labs Laboratory Tests Test 09/09/16 09/10/16 09/10/16 12:18 05:08 05:20 Prothrombin Time 11.6 11.6 Prothromb Time International 1.0 1.0 Ratio White Blood Count 11.2 Red Blood Count 3.51 Hemoglobin 10.2 Hematocrit 31.6 Mean Corpuscular Volume 90.0 Mean Corpuscular Hemoglobin 28.9 Mean Corpuscular Hemoglobin 32.1 Concent Red Cell Distribution Width 14.4 Platelet Count 429 Mean Platelet Volume 7.5 Activated Partial 54.3 Thromboplast Time Sodium Level 140 Potassium Level 4.4 Chloride Level 103 Carbon Dioxide Level 31.2 Anion Gap 6 Blood Urea Nitrogen 22 Creatinine 0.83 Estimat Glomerular Filtration 65 Rate Random Glucose 131 Lactic Acid Level 1.7 Calcium Level 8.9 B-Type Natriuretic Peptide 27 Blood Gas Puncture Site RT RADIAL Blood Gas Patient Temperature 98.6 Blood Gas HCO3 27 Blood Gas Base Excess 3.5 Blood Gas Oxygen Saturation 89 Arterial Blood pH 7.44 Arterial Blood Partial 41 Pressure CO2 Arterial Blood Partial 63 Pressure O2 Arterial Blood Oxygen Content 22.2 Arterial Blood 2.2 Carboxyhemoglobin Arterial Blood Methemoglobin 0.7 Blood Gas Hemoglobin 17.8 Oxygen Delivery Device Venti Mask Blood Gas Liter Flow 6 Blood Gas Inspired Oxygen 50 Radiology Last Impressions Consultation 09/04/16 1435 Signed Impressions: Service Date/Time: Sunday, September 04, 2016 14:35 - CONCLUSION: The complex right chest wall hematoma appears to be deep to the pectoralis major muscle. We could attempt drainage if needed clinically. Typically with a hematoma of this age and complex appearance we are usually unsuccessful at draining a significant portion of the hematoma. However, this could be attempted if needed clinically. Findings were discussed with Dr. Spain. Ganga Patel MD Radius/Ulna X-Ray 09/03/16 1103 Signed Impressions: Service Date/Time: Saturday, September 03, 2016 11:28 - CONCLUSION: No acute bony injury Cirilo Christensen MD Humerus X-Ray 09/03/161102 Signed Impressions: Service Date/Time: Saturday, September 03, 2016 11:25 - CONCLUSION: Unremarkable examination of the right humerus. Cirilo Christensen MD Chest X-Ray 09/03/161102 Signed Impressions: Service Date/Time: Saturday, September 03, 2016 11:24 - CONCLUSION: No acute disease. Orville Dominguez Jr., MD Chest CT 09/03/161102 Signed Impressions: Service Date/Time: Saturday, September 03, 2016 12:39 - CONCLUSION: Large right breast/chest wall mass may simply be large hematoma, however underlying neoplastic process should additionally be considered and either close clinical and mammographic followup or additional short-term evaluation with pre-and postcontrast MRI may be beneficial. 5.7 cm aneurysm of the ascending thoracic aorta. Ganga Michael MD Cardiovascular: Regular Lungs: Rhonchi Abdomen: Non-distended, Non-tender Narrative Exam RIGHT chest/breast with ecchymosis---PATTI in place with no bloody drainage in bulb A/P Problem List: (1) Chest wall hematoma (2) Coumadin toxicity (3) Coagulopathy (4) Fall (5) Generalized weakness (6) Failure to thrive (7) Supratherapeutic INR (8) History of mechanical aortic valve replacement Assessment and Plan 85 year old female POD6 I&D RIGHT chest wall hematoma -CXR shows LLL atelectasis vs pneumonia---Cefepime/Vanco started today; IS ordered -Regular diet -OOB -Hmg stable today (10.2) -On Coumadin -Must monitor hmg and clinical status closely as patient has a large risk of bleeding Attending Note - Dr. Napoles Chest clear Hematoma resolved PATTI output serosanguinous The exam, history, and the medical decision-making described in the above note were completed with the assistance of the mid-level provider. I reviewed and agree with the findings presented. I attest that I had a [id number] encounter with the patient on the same day, and personally performed and documented my assessment and findings in the medical record. Problem Qualifiers (1) Chest wall hematoma: Qualified Code: S20.211A - Chest wall hematoma, right, initial encounter (2) Coumadin toxicity: Qualified Code: T45.511A - Coumadin toxicity, accidental or unintentional, initial encounter Jessica Hahn Sep 10, 2016 10:47 Linwood Napoles MD Sep 12, 2016 18:14
--- NOTE | 2016-09-10 12:52 | HHI.PR ---
Subjective Remarks Follow-up Coumadin toxicity/right chest wall hematoma 09/08/16-patient seen and examined, complains of back pain mostly on the right side. Patient somehow confused but alert. I spoke to patient's son Fred [phone]. 09/09/16-patient seen and examined, denies currently any headache or right flank pain. Stable. Afebrile 09/10/16-patient seen and examined, now with possible HCAP for which she was started on IV antibiotics, patient also with acute respiratory failure and currently on venti mask. Fred Willett and Nory in the room Objective Vitals Vital Signs Date Time Temp Pulse Resp B/P Pulse Ox O2 Delivery O2 Flow Rate FiO2 09/10/16 11:19 95 Venturi Mask 50 09/10/16 08:00 98.0 75 24 121/64 95 09/10/16 06:17 95 09/10/16 05:21 Venturi Mask 6.00 50 09/10/16 04:54 95 Venturi Mask 6.00 50 09/10/16 04:00 96.0 77 19 118/58 91 09/10/16 00:00 96.8 81 19 110/59 91 09/09/16 21:30 Nasal Cannula 2.00 Humidified 09/09/16 21:18 Nasal Cannula 3.00 09/09/16 20:00 96.5 86 19 121/66 92 09/09/16 19:53 92 09/09/16 16:00 96.9 78 18 106/64 94 09/09/16 15:59 17 09/09/16 13:18 93 Nasal Cannula 5.00 I/O 09/09/16 09/09/16 09/09/16 09/10/16 09/10/16 09/10/16 07:00 15:00 23:00 07:00 15:00 23:00 Intake Total 231 ml 450 ml 316 ml 339 ml Output Total 0 ml 0 ml 0 ml 0 ml Balance 231 ml 450 ml 316 ml 339 ml Intake Oral 120 ml 360 ml 240 ml 240 ml IV Total 0 ml Other 111 ml 90 ml 76 ml 99 ml Drainage Total 0 ml 0 ml 0 ml 0 ml # Voids 3 3 3 3 # Bowel Movements 0 0 0 0 Result Diagram: 09/10/16 0508 09/10/16 0508 Imaging Last Impressions Chest X-Ray 09/10/16 0000 Signed Impressions: Service Date/Time: Saturday, September 10, 2016 05:04 - CONCLUSION: 1. Left- sided retrocardiac density characteristic of atelectasis or pneumonia. Mild right basilar airspace disease. Previous median sternotomy. Drain in right chest wall. Rao Bolanos MD Consultation 09/04/16 1435 Signed Impressions: Service Date/Time: Sunday, September 04, 2016 14:35 - CONCLUSION: The complex right chest wall hematoma appears to be deep to the pectoralis major muscle. We could attempt drainage if needed clinically. Typically with a hematoma of this age and complex appearance we are usually unsuccessful at draining a significant portion of the hematoma. However, this could be attempted if needed clinically. Findings were discussed with Dr. Spain. Ganga Patel MD Radius/Ulna X-Ray 09/03/16 1103 Signed Impressions: Service Date/Time: Saturday, September 03, 2016 11:28 - CONCLUSION: No acute bony injury Cirilo Christensen MD Humerus X-Ray 09/03/16 1103 Signed Impressions: Service Date/Time: Saturday, September 03, 2016 11:25 - CONCLUSION: Unremarkable examination of the right humerus. Cirilo Christensen MD Chest CT 09/03/16 1103 Signed Impressions: Service Date/Time: Saturday, September 03, 2016 12:39 - CONCLUSION: Large right breast/chest wall mass may simply be large hematoma, however underlying neoplastic process should additionally be considered and either close clinical and mammographic followup or additional short-term evaluation with pre-and postcontrast MRI may be beneficial. 5.7 cm aneurysm of the ascending thoracic aorta. Ganga Michael MD Objective Remarks GENERAL: NAD and sitting in a chair with Venti mask on SKIN: Warm and dry. Right chest wall hematoma HEAD: Normocephalic. EYES: No scleral icterus. No injection or drainage. NECK: Supple, trachea midline. No JVD or lymphadenopathy. CARDIOVASCULAR: Irregular Regular rate and rhythm without murmurs, gallops, or rubs. RESPIRATORY: Breath sounds equal bilaterally. No accessory muscle use. GASTROINTESTINAL: Abdomen soft, non-tender, nondistended. MUSCULOSKELETAL: No cyanosis, or edema. BACK: Nontender without obvious deformity. No CVA tenderness. Procedures Right chest wall hematoma evacuation A/P Problem List: (1) Supratherapeutic INR ICD Code: R79.1 Status: Resolved (2) Coumadin toxicity ICD Code: T45.511A Status: Resolved (3) History of mechanical aortic valve replacement ICD Code: Z95.2 Status: Chronic (4) Chest wall hematoma ICD Code: S20.219A Status: Acute (5) Contusion of right arm ICD Code: S40.021A Status: Acute (6) Acute renal failure ICD Code: N17.9 Status: Acute (7) Anemia due to acute blood loss ICD Code: D62 Status: Acute (8) HCAP (healthcare-associated pneumonia) ICD Code: J18.9 Status: Acute (9) Acute respiratory failure with hypoxemia ICD Code: J96.01 Status: Acute Assessment and Plan 85-year-old female with 1. Right chest wall hematoma: S/P irrigation and drainage of the hematoma, Appreciate general surgery recommendations. 2. Coumadin toxicity: Resolved. Given 4 units of FFP . Patient is on Coumadin chronically for mechanical aortic valve. Currently on heparin drip with Coumadin 3. Mechanical AVR: On heparin drip with Coumadin; DC heparin when INR>1.9 4. Seizure disorder: Continue Keppra. 5. Thoracic aortic aneurysm: Appreciate cardiothoracic surgery recommendations. Continue medical management. No surgical intervention due to advanced age, high risk. 6. History of diastolic congestive heart failure: Currently asymptomatic. 7. Acute renal failure: Resolved with IV fluid hydration 8. DVT prophylaxis: Heparin drip with Coumadin 9. Anemia secondary to acute blood loss: Status post transfusion of 2 units PRBCs. Monitor H&H 10. HACP: CXR noted and reviewed with finding of Left-sided retrocardiac density characteristic of atelectasis or pneumonia; currently on IV antibiotics including cefepime and vancomycin. Incentive spirometer by the bedside 11. Acute respiratory failure: Currently on vent mask, encourage incentive spirometer use and continue treatment for pneumonia and DuoNeb when necessary Problem Qualifiers (1) Coumadin toxicity: Qualified Code: T45.511A - Coumadin toxicity, accidental or unintentional, initial encounter (2) Chest wall hematoma: Qualified Code: S20.211A - Chest wall hematoma, right, initial encounter (3) Contusion of right arm: Qualified Code: S40.021A - Contusion of right arm, initial encounter Arthur Akbar MD Sep 10, 2016 12:52
[2016-09-10] MEDS: WARFARIN SOD 2 MG TAB PO SCH ×2 (16:00→16:14)
[2016-09-10] MEDS: GABAPENTIN 300 MG CAP PO SCH (21:04)
[2016-09-10] MEDS: MIRTAZAPINE 15 MG TAB PO SCH (21:04)
[2016-09-11] VITALS (10 sets, daily range): BP systolic 102–117; BP diastolic 55–61; PULSE 73–98; RESP 16–20; TEMP 96–97.9; O2SAT 92–100
[2016-09-11] MEDS: HEPARIN-D5W INJ 250 ML IV SCH (03:16)
[2016-09-11] MEDS: RESP: ALBUTEROL 2.5 MG/IPRATROPIUM 0.5 MG NEB (SCH) NEB ×4 (03:26→21:03)
[2016-09-11] MEDS: VANCOMYCIN 1,000 MG/NS 250 ML IV SCH ×2 (04:14)
[2016-09-11 05:08] LABS: APTT (PATIENT) 50.7 SEC (24.3-30.1); INTERNATIONAL NORMALIZED RATIO 1.2 RATIO; PROTHROMBIN TIME - PATIENT 12.9 SEC (9.8-11.6)
[2016-09-11] MEDS: levETIRAcetam 500 MG TAB PO SCH ×2 (08:58→22:31)
[2016-09-11] MEDS: CEFEPIME INJ 2,000 MG in SODIUM CHLORIDE 0.9% INJ 100 ML IV SCH ×3 (08:58→22:45)
--- NOTE | 2016-09-11 09:31 | HHI.PR ---
Subjective Remarks Follow-up Coumadin toxicity/right chest wall hematoma 09/08/16-patient seen and examined, complains of back pain mostly on the right side. Patient somehow confused but alert. I spoke to patient's son Fred [phone]. 09/09/16-patient seen and examined, denies currently any headache or right flank pain. Stable. Afebrile 09/10/16-patient seen and examined, now with possible HCAP for which she was started on IV antibiotics, patient also with acute respiratory failure and currently on venti mask. Fred Willett and Nory in the room 09/11/16-patient seen and examined, afebrile, stable on Ventimask however 94 percent.Patient taking some steps with the help of PT in the room Objective Vitals Vital Signs Date Time Temp Pulse Resp B/P Pulse Ox O2 Delivery O2 Flow Rate FiO2 09/11/16 08:21 97.3 95 17 108/59 94 09/11/16 04:00 97.6 82 19 102/56 100 09/11/16 00:00 97.9 81 19 117/55 94 09/10/16 21:23 92 Venturi Mask 6.00 50 09/10/16 20:00 97.8 86 20 112/55 98 09/10/16 16:52 74 09/10/16 16:00 96.6 80 22 125/56 94 09/10/16 12:00 96.5 93 24 107/61 95 09/10/16 11:19 95 Venturi Mask 50 I/O 09/10/16 09/10/16 09/10/16 09/11/16 09/11/16 09/11/16 07:00 15:00 23:00 07:00 15:00 23:00 Intake Total 339 ml 100 ml 426 ml 370 ml Output Total 0 ml 0 ml 0 ml Balance 339 ml 100 ml 426 ml 370 ml Intake Oral 240 ml 100 ml 120 ml 120 ml IV Total 306 ml 250 ml Other 99 ml Drainage Total 0 ml 0 ml 0 ml # Voids 3 3 5 3 # Bowel Movements 0 0 0 Result Diagram: 09/10/16 0508 09/11/16 0435 Objective Remarks GENERAL: NAD and sitting in a chair with Venti mask on SKIN: Warm and dry. Right chest wall hematoma HEAD: Normocephalic. EYES: No scleral icterus. No injection or drainage. NECK: Supple, trachea midline. No JVD or lymphadenopathy. CARDIOVASCULAR: Irregular Regular rate and rhythm without murmurs, gallops, or rubs. RESPIRATORY: Breath sounds equal bilaterally. No accessory muscle use. GASTROINTESTINAL: Abdomen soft, non-tender, nondistended. MUSCULOSKELETAL: No cyanosis, or edema. BACK: Nontender without obvious deformity. No CVA tenderness. Procedures Right chest wall hematoma evacuation A/P Problem List: (1) Supratherapeutic INR ICD Code: R79.1 Status: Resolved (2) Coumadin toxicity ICD Code: T45.511A Status: Resolved (3) History of mechanical aortic valve replacement ICD Code: Z95.2 Status: Chronic (4) Chest wall hematoma ICD Code: S20.219A Status: Acute (5) Contusion of right arm ICD Code: S40.021A Status: Acute (6) Acute renal failure ICD Code: N17.9 Status: Acute (7) Anemia due to acute blood loss ICD Code: D62 Status: Acute (8) HCAP (healthcare-associated pneumonia) ICD Code: J18.9 Status: Acute (9) Acute respiratory failure with hypoxemia ICD Code: J96.01 Status: Acute Assessment and Plan 85-year-old female with 1. Right chest wall hematoma: S/P irrigation and drainage of the hematoma, Appreciate general surgery recommendations. 2. Coumadin toxicity: Resolved. s/p 4 units of FFP . Patient is on Coumadin chronically for mechanical aortic valve. Currently on heparin drip with Coumadin 3. Mechanical AVR: On heparin drip with Coumadin; DC heparin when INR>1.9 4. Seizure disorder: Continue Keppra. 5. Thoracic aortic aneurysm: Appreciate cardiothoracic surgery recommendations. Continue medical management. No surgical intervention due to advanced age, high risk. 6. History of diastolic congestive heart failure: Currently asymptomatic. 7. Acute renal failure: Resolved s/p IV fluid hydration 8. DVT prophylaxis: Heparin drip with Coumadin 9. Anemia secondary to acute blood loss: Status post transfusion of 2 units PRBCs. Monitor H&H 10. HACP: CXR with finding of Left-sided retrocardiac density characteristic of atelectasis or pneumonia; currently on IV antibiotics including cefepime and vancomycin. Incentive spirometer by the bedside 11. Acute respiratory failure: Improving and continue with vent mask, encourage incentive spirometer use and continue treatment for pneumonia and DuoNeb when necessary Problem Qualifiers (1) Coumadin toxicity: Qualified Code: T45.511A - Coumadin toxicity, accidental or unintentional, initial encounter (2) Chest wall hematoma: Qualified Code: S20.211A - Chest wall hematoma, right, initial encounter (3) Contusion of right arm: Qualified Code: S40.021A - Contusion of right arm, initial encounter Arthur Akbar MD Sep 11, 2016 09:31
--- NOTE | 2016-09-11 11:44 | HHI.PR ---
Subjective Subjective Notes Up to chair Mild pain around incision RT in room---going to try NC Objective Vitals/I&O Vital Signs Date Time Temp Pulse Resp B/P Pulse Ox O2 Delivery O2 Flow Rate FiO2 09/11/16 10:07 97 Venturi Mask 6.00 50 09/11/16 08:21 97.3 95 17 108/59 Labs Laboratory Tests Test 09/11/16 04:35 Prothrombin Time 12.9 Prothromb Time International 1.2 Ratio Activated Partial 50.7 Thromboplast Time Creatinine 0.91 Estimat Glomerular Filtration 59 Rate Radiology Last Impressions Consultation 09/04/16 1435 Signed Impressions: Service Date/Time: Sunday, September 04, 2016 14:35 - CONCLUSION: The complex right chest wall hematoma appears to be deep to the pectoralis major muscle. We could attempt drainage if needed clinically. Typically with a hematoma of this age and complex appearance we are usually unsuccessful at draining a significant portion of the hematoma. However, this could be attempted if needed clinically. Findings were discussed with Dr. Spain. Ganga Patel MD Radius/Ulna X-Ray 09/03/16 1103 Signed Impressions: Service Date/Time: Saturday, September 03, 2016 11:28 - CONCLUSION: No acute bony injury Cirilo Christensen MD Humerus X-Ray 09/03/16 110 Signed Impressions: Service Date/Time: Saturday, September 03, 2016 11:25 - CONCLUSION: Unremarkable examination of the right humerus. Cirilo Christensen MD Chest X-Ray 09/03/16 1103 Signed Impressions: Service Date/Time: Saturday, September 03, 2016 11:24 - CONCLUSION: No acute disease. Orville Dominguez Jr., MD Chest CT 09/03/16 1103 Signed Impressions: Service Date/Time: Saturday, September 03, 2016 12:39 - CONCLUSION: Large right breast/chest wall mass may simply be large hematoma, however underlying neoplastic process should additionally be considered and either close clinical and mammographic followup or additional short-term evaluation with pre-and postcontrast MRI may be beneficial. 5.7 cm aneurysm of the ascending thoracic aorta. Ganga Michael MD Cardiovascular: Regular Lungs: Clear Abdomen: Non-distended, Non-tender Narrative Exam RIGHT chest/breast with ecchymosis---PATTI in place with no bloody drainage in bulb A/P Problem List: (1) Chest wall hematoma (2) Coumadin toxicity (3) Coagulopathy (4) Fall (5) Generalized weakness (6) Failure to thrive (7) Supratherapeutic INR (8) History of mechanical aortic valve replacement Assessment and Plan 85 year old female POD7 I&D RIGHT chest wall hematoma -Wean oxygen as tolerated -Antibiotics per Primary team for pneumonia -Regular diet -OOB -Hmg stable today (10.2) -On Heparin drip and Coumadin--Cardiology following -Must monitor hmg and clinical status closely as patient has a large risk of bleeding -Patient would benefit from short term stay at rehab once off Heparin drip--- Discussed with Attending Note - Dr. Napoles Chest wall much improved; hematoma resolved. The exam, history, and the medical decision-making described in the above note were completed with the assistance of the mid-level provider. I reviewed and agree with the findings presented. I attest that I had a [id number] encounter with the patient on the same day, and personally performed and documented my assessment and findings in the medical record. Problem Qualifiers (1) Chest wall hematoma: Qualified Code: S20.211A - Chest wall hematoma, right, initial encounter (2) Coumadin toxicity: Qualified Code: T45.511A - Coumadin toxicity, accidental or unintentional, initial encounter Jessica Hahn Sep 11, 2016 11:43 Linwood Napoles MD Sep 12, 2016 18:12
[2016-09-11] MEDS: ACETAMINOPHEN/HYDROcodone 325 MG/7.5 MG TAB PO PRN ×3 (12:37→22:32)
[2016-09-11] MEDS: WARFARIN SOD 1 MG TAB PO SCH (16:09)
[2016-09-11] MEDS: MIRTAZAPINE 15 MG TAB PO SCH (22:31)
[2016-09-11] MEDS: GABAPENTIN 300 MG CAP PO SCH (22:31)
[2016-09-12] VITALS (7 sets, daily range): BP systolic 100–133; BP diastolic 54–80; PULSE 77–97; RESP 17–19; TEMP 96.9–97.7; O2SAT 91–95
[2016-09-12] MEDS: HEPARIN-D5W INJ 250 ML IV SCH ×2 (01:43→23:10)
[2016-09-12] MEDS: VANCOMYCIN 1,000 MG/NS 250 ML IV SCH ×2 (05:27)
[2016-09-12 05:42] LABS: AUTOMATED NEUTROPHIL # 5.2 TH/MM3 (1.8-7.7); BASOPHIL # 0.1 TH/MM3 (0-0.2); EOSINOPHIL # 0.5 TH/MM3 (0-0.4); EOSINOPHIL % 5.9 % (0.0-4.0); HEMATOCRIT 28.6 % (35.0-46.0); LYMPH % 17.2 % (9.0-44.0); LYMPHOCYTE # 1.5 TH/MM3 (1.0-4.8); MEAN CELL VOLUME 90.1 FL (80.0-100.0); MEAN CORPUSCULAR HEMOGLOBIN 30.3 PG (27.0-34.0); MEAN CORPUSCULAR HGB CONC 33.6 % (32.0-36.0); MONO % 15.1 % (0.0-8.0); NEUT % 60.8 % (16.0-70.0); PLATELET COUNT 366 TH/MM3 (150-450); RED BLOOD COUNT 3.18 MIL/MM3 (4.00-5.30); RED CELL DISTRIBUTION WIDTH 15.1 % (11.6-17.2); WHITE BLOOD COUNT 8.5 TH/MM3 (4.0-11.0)
[2016-09-12 05:49] LABS: HEMO FLAGS AUTO DIFF
[2016-09-12 05:55] LABS: APTT (PATIENT) 72.8 SEC (24.3-30.1); INTERNATIONAL NORMALIZED RATIO 1.2 RATIO; PROTHROMBIN TIME - PATIENT 13.6 SEC (9.8-11.6)
[2016-09-12 06:07] LABS: BICARBONATE 26.7 MEQ/L (21.0-32.0); POTASSIUM 3.8 MEQ/L (3.5-5.1)
[2016-09-12 08:13] LABS: BANDS 3 % (0-6); BASOPHILS 1 % (0-2); EOSINOPHILS 2 % (0-4); MYELOCYTES 1 % (0-0); NEUTROPHIL # MANUAL DIFF 6.5 TH/MM3 (1.8-7.7); POLYS (SEG NEUTROPHILS) 72 % (16-70); WBC DIFF SAMPLE 100
[2016-09-12 08:14] LABS: PLATELET ESTIMATE SMEAR NORMAL (NORMAL); PLATELET MORPHOLOGY NORMAL (NORMAL); SCAN/DIFF FINAL DIFF MANUAL
[2016-09-12] MEDS: CEFEPIME INJ 2,000 MG in SODIUM CHLORIDE 0.9% INJ 100 ML IV SCH ×3 (08:20→22:52)
[2016-09-12] MEDS: levETIRAcetam 500 MG TAB PO SCH ×2 (08:20→22:03)
[2016-09-12] MEDS: RESP: ALBUTEROL 2.5 MG/IPRATROPIUM 0.5 MG NEB (SCH) NEB ×3 (09:38→21:15)
--- NOTE | 2016-09-12 10:04 | HHI.PR ---
Subjective Remarks Follow-up Coumadin toxicity/right chest wall hematoma 09/08/16-patient seen and examined, complains of back pain mostly on the right side. Patient somehow confused but alert. I spoke to patient's son Fred [phone]. 09/09/16-patient seen and examined, denies currently any headache or right flank pain. Stable. Afebrile 09/10/16-patient seen and examined, now with possible HCAP for which she was started on IV antibiotics, patient also with acute respiratory failure and currently on venti mask. Fred Willett and Nory in the room 09/11/16-patient seen and examined, afebrile, stable on Ventimask however 94 percent.Patient taking some steps with the help of PT in the room 09/12/16-patient seen and examined, only complain of right sided flank pain. INR 1.2 and currently on 4 L nasal cannula. Afebrile. Objective Vitals Vital Signs Date Time Temp Pulse Resp B/P Pulse Ox O2 Delivery O2 Flow Rate FiO2 09/12/16 09:38 93 Nasal Cannula 4.00 09/12/16 08:00 97.0 82 17 111/54 93 09/12/16 04:00 97.7 97 19 133/80 95 09/12/16 00:00 96.9 77 19 100/54 92 09/11/16 23:00 80 09/11/16 20:00 96.8 81 20 105/55 93 09/11/16 19:00 93 Nasal Cannula 5.00 09/11/16 17:10 Nasal Cannula 2.00 09/11/16 16:22 96.0 73 17 105/59 93 09/11/16 15:16 94 Nasal Cannula 5.00 09/11/16 15:00 98 09/11/16 12:30 96.3 94 16 105/61 92 09/11/16 10:07 97 Venturi Mask 6.00 50 I/O 09/11/16 09/11/16 09/11/16 09/12/16 09/12/16 09/12/16 07:00 15:00 23:00 07:00 15:00 23:00 Intake Total 370 ml 965 ml 240 ml 120 ml Output Total 0 ml 400 ml Balance 370 ml 965 ml 240 ml -280 ml Intake Oral 120 ml 720 ml 240 ml 120 ml IV Total 250 ml 245 ml Output Urine Total 400 ml Drainage Total 0 ml # Voids 3 4 3 2 # Bowel Movements 0 0 0 0 Result Diagram: 09/12/1643909/12/16439 Objective Remarks GENERAL: NAD and sitting in a chair SKIN: Warm and dry. Right chest wall hematoma HEAD: Normocephalic. EYES: No scleral icterus. No injection or drainage. NECK: Supple, trachea midline. No JVD or lymphadenopathy. CARDIOVASCULAR: Irregular Regular rate and rhythm without murmurs, gallops, or rubs. RESPIRATORY: Breath sounds equal bilaterally. No accessory muscle use. GASTROINTESTINAL: Abdomen soft, non-tender, nondistended. MUSCULOSKELETAL: No cyanosis, or edema. BACK: Nontender without obvious deformity. No CVA tenderness. Procedures Right chest wall hematoma evacuation A/P Problem List: (1) Supratherapeutic INR ICD Code: R79.1 Status: Resolved (2) Coumadin toxicity ICD Code: T45.511A Status: Resolved (3) History of mechanical aortic valve replacement ICD Code: Z95.2 Status: Chronic (4) Chest wall hematoma ICD Code: S20.219A Status: Acute (5) Contusion of right arm ICD Code: S40.021A Status: Acute (6) Acute renal failure ICD Code: N17.9 Status: Acute (7) Anemia due to acute blood loss ICD Code: D62 Status: Acute (8) HCAP (healthcare-associated pneumonia) ICD Code: J18.9 Status: Acute (9) Acute respiratory failure with hypoxemia ICD Code: J96.01 Status: Acute Assessment and Plan 85-year-old female with 1. Right chest wall hematoma: S/P irrigation and drainage of the hematoma, Appreciate general surgery recommendations. 2. Coumadin toxicity: Resolved. s/p 4 units of FFP . Patient is on Coumadin chronically for mechanical aortic valve. 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 INR currently 1.2 4. Seizure disorder: Continue Keppra. 5. Thoracic aortic aneurysm: Appreciate cardiothoracic surgery recommendations. Continue medical management. No surgical intervention due to advanced age, high risk. 6. History of diastolic congestive heart failure: Currently asymptomatic. 7. Acute renal failure: Resolved s/p IV fluid hydration 8. DVT prophylaxis: Heparin drip with Coumadin 9. Anemia secondary to acute blood loss: Status post transfusion of 2 units PRBCs. Monitor H&H 10. HACP: CXR with finding of Left-sided retrocardiac density characteristic of atelectasis or pneumonia; currently on IV antibiotics including cefepime and vancomycin. Incentive spirometer by the bedside 11. Acute respiratory failure: Improving and continue with nasal cannula 4 L, encourage incentive spirometer use and continue treatment for pneumonia and DuoNeb when necessary Problem Qualifiers (1) Coumadin toxicity: Qualified Code: T45.511A - Coumadin toxicity, accidental or unintentional, initial encounter (2) Chest wall hematoma: Qualified Code: S20.211A - Chest wall hematoma, right, initial encounter (3) Contusion of right arm: Qualified Code: S40.021A - Contusion of right arm, initial encounter Arthur Akbar MD Sep 12, 2016 10:04
[2016-09-12] MEDS ORDERED: MAGNESIUM CITRATE SOLN 300 ML BTL PO ONE (12:15)
--- NOTE | 2016-09-12 13:22 | HHI.PR ---
Subjective Subjective Notes Seen about 7am Resting in bed Objective Vitals/I&O Vital Signs Date Time Temp Pulse Resp B/P Pulse Ox O2 Delivery O2 Flow Rate FiO2 09/12/16 09:38 93 Nasal Cannula 4.00 09/12/16 08:00 97.0 82 17 111/54 09/11/16 10:07 50 Labs Laboratory Tests Test 09/12/16 04:40 White Blood Count 8.5 Red Blood Count 3.18 Hemoglobin 9.6 Hematocrit 28.6 Mean Corpuscular Volume 90.1 Mean Corpuscular Hemoglobin 30.3 Mean Corpuscular Hemoglobin 33.6 Concent Red Cell Distribution Width 15.1 Platelet Count 366 Mean Platelet Volume 8.4 Neutrophils (%) (Auto) 60.8 Lymphocytes (%) (Auto) 17.2 Monocytes (%) (Auto) 15.1 Eosinophils (%) (Auto) 5.9 Basophils (%) (Auto) 1.0 Neutrophils # (Auto) 5.2 Lymphocytes # (Auto) 1.5 Monocytes # (Auto) 1.3 Eosinophils # (Auto) 0.5 Basophils # (Auto) 0.1 CBC Comment AUTO DIFF Differential Total Cells 100 Counted Neutrophils % (Manual) 72 Band Neutrophils % 3 Lymphocytes % 14 Monocytes % 7 Eosinophils % 2 Basophils % 1 Neutrophils # (Manual) 6.5 Myelocytes 1 Differential Comment FINAL DIFF MANUAL Platelet Estimate NORMAL Platelet Morphology Comment NORMAL Red Cell Morphology Comment NORMAL Prothrombin Time 13.6 Prothromb Time International 1.2 Ratio Activated Partial 72.8 Thromboplast Time Sodium Level 141 Potassium Level 3.8 Chloride Level 106 Carbon Dioxide Level 26.7 Anion Gap 8 Blood Urea Nitrogen 18 Creatinine 0.74 Estimat Glomerular Filtration 75 Rate Random Glucose 102 Calcium Level 8.3 Radiology Last Impressions Consultation 09/04/16 1435 Signed Impressions: Service Date/Time: Sunday, September 04, 2016 14:35 - CONCLUSION: The complex right chest wall hematoma appears to be deep to the pectoralis major muscle. We could attempt drainage if needed clinically. Typically with a hematoma of this age and complex appearance we are usually unsuccessful at draining a significant portion of the hematoma. However, this could be attempted if needed clinically. Findings were discussed with Dr. Spain. Ganga Patel MD Radius/Ulna X-Ray 09/03/16 1103 Signed Impressions: Service Date/Time: Saturday, September 03, 2016 11:28 - CONCLUSION: No acute bony injury Cirilo Christensen MD Humerus X-Ray 09/03/16 1103 Signed Impressions: Service Date/Time: Saturday, September 03, 2016 11:25 - CONCLUSION: Unremarkable examination of the right humerus. Cirilo Christensen MD Chest X-Ray 09/03/16 1103 Signed Impressions: Service Date/Time: Saturday, September 03, 2016 11:24 - CONCLUSION: No acute disease. Orville Dominguez Jr., MD Chest CT 09/03/16 1103 Signed Impressions: Service Date/Time: Saturday, September 03, 2016 12:39 - CONCLUSION: Large right breast/chest wall mass may simply be large hematoma, however underlying neoplastic process should additionally be considered and either close clinical and mammographic followup or additional short-term evaluation with pre-and postcontrast MRI may be beneficial. 5.7 cm aneurysm of the ascending thoracic aorta. Ganga Michael MD Cardiovascular: Regular Lungs: Clear Abdomen: Non-tender Narrative Exam RIGHT chest/breast with ecchymosis---PATTI removed; prior PATTI site with ABD pad--- minimal drainage on dressing A/P Problem List: (1) Chest wall hematoma (2) Coumadin toxicity (3) Coagulopathy (4) Fall (5) Generalized weakness (6) Failure to thrive (7) Supratherapeutic INR (8) History of mechanical aortic valve replacement Assessment and Plan 85 year old female POD8 I&D RIGHT chest wall hematoma -Wean oxygen as tolerated -Antibiotics per Primary team for pneumonia -Regular diet -OOB -On Heparin drip and Coumadin--Cardiology following -Must monitor hmg and clinical status closely as patient has a large risk of bleeding -Place ABD pad over prior PATTI site daily and as needed -Patient would benefit from short term stay at rehab once off Heparin drip Attending Note - Dr. Napoles Chest wall hematoma resolved Large amount of ecchymosis remains on chest wall and down lateral abdominal wall onto hip Drain removed yesterday. Will see as needed. The exam, history, and the medical decision-making described in the above note were completed with the assistance of the mid-level provider. I reviewed and agree with the findings presented. I attest that I had a [id number] encounter with the patient on the same day, and personally performed and documented my assessment and findings in the medical record. Problem Qualifiers (1) Chest wall hematoma: Qualified Code: S20.211A - Chest wall hematoma, right, initial encounter (2) Coumadin toxicity: Qualified Code: T45.511A - Coumadin toxicity, accidental or unintentional, initial encounter Jessica Hahn Sep 12, 2016 13:22 Linwood Napoles MD Sep 12, 2016 18:11
[2016-09-12] MEDS: WARFARIN SOD 2 MG TAB PO SCH (16:00)
[2016-09-12] MEDS: ACETAMINOPHEN/HYDROcodone 325 MG/7.5 MG TAB PO PRN ×2 (17:05→22:06)
[2016-09-12] MEDS: MIRTAZAPINE 15 MG TAB PO SCH (21:00)
[2016-09-12] MEDS: GABAPENTIN 300 MG CAP PO SCH (22:00)
[2016-09-13] VITALS (10 sets, daily range): BP systolic 101–142; BP diastolic 43–83; PULSE 73–80; RESP 16–18; TEMP 96–97.8; O2SAT 93–98
[2016-09-13] MEDS: RESP: ALBUTEROL 2.5 MG/IPRATROPIUM 0.5 MG NEB (SCH) NEB ×4 (03:58→21:50)
[2016-09-13] MEDS: VANCOMYCIN 1,000 MG/NS 250 ML IV SCH ×2 (05:25)
[2016-09-13] MEDS ORDERED: PHARMACY ORDERED LAB XX ONE (05:45)
[2016-09-13 06:28] LABS: MEAN CELL VOLUME 89.7 FL (80.0-100.0); MEAN CORPUSCULAR HEMOGLOBIN 30.6 PG (27.0-34.0); MEAN CORPUSCULAR HGB CONC 34.1 % (32.0-36.0); PLATELET COUNT 339 TH/MM3 (150-450); RED BLOOD COUNT 3.13 MIL/MM3 (4.00-5.30); RED CELL DISTRIBUTION WIDTH 15.2 % (11.6-17.2); REVIEW FLAG FINAL; WHITE BLOOD COUNT 7.3 TH/MM3 (4.0-11.0)
[2016-09-13 06:39] LABS: APTT (PATIENT) 72.3 SEC (24.3-30.1); INTERNATIONAL NORMALIZED RATIO 1.2 RATIO; PROTHROMBIN TIME - PATIENT 13.4 SEC (9.8-11.6)
[2016-09-13] MEDS: levETIRAcetam 500 MG TAB PO SCH ×2 (08:50→22:04)
[2016-09-13] MEDS: CEFEPIME INJ 2,000 MG in SODIUM CHLORIDE 0.9% INJ 100 ML IV SCH ×3 (08:51→23:36)
--- NOTE | 2016-09-13 10:00 | HHI.PR ---
Subjective Remarks Follow-up Coumadin toxicity/right chest wall hematoma 09/08/16-patient seen and examined, complains of back pain mostly on the right side. Patient somehow confused but alert. I spoke to patient's son Fred [phone]. 09/09/16-patient seen and examined, denies currently any headache or right flank pain. Stable. Afebrile 09/10/16-patient seen and examined, now with possible HCAP for which she was started on IV antibiotics, patient also with acute respiratory failure and currently on venti mask. Fred Willett and Nory in the room 09/11/16-patient seen and examined, afebrile, stable on Ventimask however 94 percent.Patient taking some steps with the help of PT in the room 09/12/16-patient seen and examined, only complain of right sided flank pain. INR 1.2 and currently on 4 L nasal cannula. Afebrile. 09/13/16-patient seen and examined, refusing to eat this morning states she is not hungry. INR still 1.2 and patient's statting @96% on 4 L Objective Vitals Vital Signs Date Time Temp Pulse Resp B/P Pulse Ox O2 Delivery O2 Flow Rate FiO2 09/13/16 08:00 96.5 73 17 102/57 97 09/13/16 07:38 96 Nasal Cannula 4.00 09/13/16 04:01 98 Nasal Cannula 4.00 09/13/16 04:00 97.1 75 17 104/57 98 09/13/16 00:00 96.7 73 18 109/53 94 09/12/16 21:17 91 21 09/12/16 19:51 77 09/12/16 16:00 97.3 86 17 117/68 93 I/O 09/12/16 09/12/16 09/12/16 09/13/16 09/13/16 09/13/16 07:00 15:00 23:00 07:00 15:00 23:00 Intake Total 120 ml 180 ml 353 ml 280 ml Output Total 400 ml 300 ml 100 ml Balance -280 ml -120 ml 253 ml 280 ml Intake Oral 120 ml 180 ml 180 ml IV Total 353 ml 100 ml Output Urine Total 400 ml 300 ml 100 ml # Voids 2 1 # Bowel Movements 0 0 Result Diagram: 09/13/16 0529 09/13/16 0529 Objective Remarks GENERAL: NAD and sitting in a chair SKIN: Warm and dry. Right chest wall hematoma HEAD: Normocephalic. EYES: No scleral icterus. No injection or drainage. NECK: Supple, trachea midline. No JVD or lymphadenopathy. CARDIOVASCULAR: Irregular Regular rate and rhythm without murmurs, gallops, or rubs. RESPIRATORY: Breath sounds equal bilaterally. No accessory muscle use. GASTROINTESTINAL: Abdomen soft, non-tender, nondistended. MUSCULOSKELETAL: No cyanosis, or edema. BACK: Nontender without obvious deformity. No CVA tenderness. Procedures Right chest wall hematoma evacuation A/P Problem List: (1) Supratherapeutic INR ICD Code: R79.1 Status: Resolved (2) Coumadin toxicity ICD Code: T45.511A Status: Resolved (3) History of mechanical aortic valve replacement ICD Code: Z95.2 Status: Chronic (4) Chest wall hematoma ICD Code: S20.219A Status: Acute (5) Contusion of right arm ICD Code: S40.021A Status: Acute (6) Acute renal failure ICD Code: N17.9 Status: Acute (7) Anemia due to acute blood loss ICD Code: D62 Status: Acute (8) HCAP (healthcare-associated pneumonia) ICD Code: J18.9 Status: Acute (9) Acute respiratory failure with hypoxemia ICD Code: J96.01 Status: Acute Assessment and Plan 85-year-old female with 1. Right chest wall hematoma: S/P irrigation and drainage of the hematoma, Appreciate general surgery recommendations. 2. Coumadin toxicity: Resolved. s/p 4 units of FFP . Patient is on Coumadin chronically for mechanical aortic valve. 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 INR currently 1.2 4. Seizure disorder: Stable and Continue Keppra. 5. Thoracic aortic aneurysm: Appreciate cardiothoracic surgery recommendations. Continue medical management. No surgical intervention due to advanced age, high risk. 6. History of diastolic congestive heart failure: Currently asymptomatic. 7. Acute renal failure: Resolved s/p IV fluid hydration 8. DVT prophylaxis: Heparin drip with Coumadin 9. Anemia secondary to acute blood loss: Status post transfusion of 2 units PRBCs. Monitor H&H 10. HACP: CXR with finding of Left-sided retrocardiac density characteristic of atelectasis or pneumonia; currently on IV antibiotics including cefepime and vancomycin however will discontinue vancomycin today 09/13/16. Incentive spirometer by the bedside 11. Acute respiratory failure: Improving and wean oxygen NC, encourage incentive spirometer use and continue treatment for pneumonia and DuoNeb when necessary Problem Qualifiers (1) Coumadin toxicity: Qualified Code: T45.511A - Coumadin toxicity, accidental or unintentional, initial encounter (2) Chest wall hematoma: Qualified Code: S20.211A - Chest wall hematoma, right, initial encounter (3) Contusion of right arm: Qualified Code: S40.021A - Contusion of right arm, initial encounter Arthur Akbar MD Sep 13, 2016 10:00
[2016-09-13] MEDS: ACETAMINOPHEN/HYDROcodone 325 MG/7.5 MG TAB PO PRN (10:44)
[2016-09-13] MEDS: WARFARIN SOD 1 MG TAB PO SCH (17:06)
--- NOTE | 2016-09-13 20:16 | HHI.PR ---
Subjective Subjective Notes Up to chair Pain controlled Objective Vitals/I&O Vital Signs Date Time Temp Pulse Resp B/P Pulse Ox O2 Delivery O2 Flow Rate FiO2 09/13/16 16:00 96.0 74 16 101/43 97 09/13/16 09:00 Nasal Cannula 4.00 21 Labs Laboratory Tests Test 09/13/16 09/13/16 05:29 05:30 White Blood Count 7.3 Red Blood Count 3.13 Hemoglobin 9.6 Hematocrit 28.0 Mean Corpuscular Volume 89.7 Mean Corpuscular Hemoglobin 30.6 Mean Corpuscular Hemoglobin 34.1 Concent Red Cell Distribution Width 15.2 Platelet Count 339 Mean Platelet Volume 8.1 Prothrombin Time 13.4 Prothromb Time International 1.2 Ratio Activated Partial 72.3 Thromboplast Time Creatinine 0.67 Estimat Glomerular Filtration 84 Rate Vancomycin Level Trough 7.0 Radiology Last Impressions Consultation 09/04/16 1435 Signed Impressions: Service Date/Time: Sunday, September 04, 2016 14:35 - CONCLUSION: The complex right chest wall hematoma appears to be deep to the pectoralis major muscle. We could attempt drainage if needed clinically. Typically with a hematoma of this age and complex appearance we are usually unsuccessful at draining a significant portion of the hematoma. However, this could be attempted if needed clinically. Findings were discussed with Dr. Spain. Ganga Patel MD Radius/Ulna X-Ray 09/03/161102 Signed Impressions: Service Date/Time: Saturday, September 03, 2016 11:28 - CONCLUSION: No acute bony injury Cirilo Christensen MD Humerus X-Ray 09/03/161102 Signed Impressions: Service Date/Time: Saturday, September 03, 2016 11:25 - CONCLUSION: Unremarkable examination of the right humerus. Cirilo Christensen MD Chest X-Ray 09/03/16 110 Signed Impressions: Service Date/Time: Saturday, September 03, 2016 11:24 - CONCLUSION: No acute disease. Orville Dominguez Jr., MD Chest CT 09/03/16 1103 Signed Impressions: Service Date/Time: Saturday, September 03, 2016 12:39 - CONCLUSION: Large right breast/chest wall mass may simply be large hematoma, however underlying neoplastic process should additionally be considered and either close clinical and mammographic followup or additional short-term evaluation with pre-and postcontrast MRI may be beneficial. 5.7 cm aneurysm of the ascending thoracic aorta. Ganga Michael MD Cardiovascular: Regular Lungs: Clear Abdomen: Non-distended, Non-tender Narrative Exam RIGHT chest/breast with ecchymosis--- prior PATTI site with ABD pad---minimal drainage on dressing; Steri strips removed ---incision healing A/P Problem List: (1) Chest wall hematoma (2) Coumadin toxicity (3) Coagulopathy (4) Fall (5) Generalized weakness (6) Failure to thrive (7) Supratherapeutic INR (8) History of mechanical aortic valve replacement Assessment and Plan 85 year old female POD9 I&D RIGHT chest wall hematoma -Regular diet -OOB -Place ABD pad over prior PATTI site daily and as needed -Patient would benefit from short term stay at rehab -GS will sign off; please call with questions Attending Note - Dr. Napoles Wound clean and healing Drain site clean Hematoma resolved; ecchymosis improving daily. Will sign off; no followup needed. The exam, history, and the medical decision-making described in the above note were completed with the assistance of the mid-level provider. I reviewed and agree with the findings presented. I attest that I had a [id number] encounter with the patient on the same day, and personally performed and documented my assessment and findings in the medical record. Problem Qualifiers (1) Chest wall hematoma: Qualified Code: S20.211A - Chest wall hematoma, right, initial encounter (2) Coumadin toxicity: Qualified Code: T45.511A - Coumadin toxicity, accidental or unintentional, initial encounter Jessica Hahn Sep 13, 2016 20:16 Linwood Napoles MD Sep 15, 2016 20:24
[2016-09-13] MEDS: HEPARIN-D5W INJ 250 ML IV SCH (22:00)
[2016-09-13] MEDS: MIRTAZAPINE 15 MG TAB PO SCH (22:04)
[2016-09-13] MEDS: GABAPENTIN 300 MG CAP PO SCH (22:04)
[2016-09-14] VITALS (8 sets, daily range): BP systolic 100–130; BP diastolic 49–55; PULSE 67–100; RESP 16–22; TEMP 96.3–98.5; O2SAT 94–100
[2016-09-14] MEDS ORDERED: VANCOMYCIN 1,000 MG/NS 250 ML IV SCH ×2
[2016-09-14] MEDS: RESP: ALBUTEROL 2.5 MG/IPRATROPIUM 0.5 MG NEB (SCH) NEB ×4 (04:15→21:23)
[2016-09-14 05:07] LABS: INTERNATIONAL NORMALIZED RATIO 1.1 RATIO; PROTHROMBIN TIME - PATIENT 12.7 SEC (9.8-11.6)
[2016-09-14 06:02] LABS: APTT (PATIENT) 64.4 SEC (24.3-30.1)
[2016-09-14] MEDS: levETIRAcetam 500 MG TAB PO SCH ×2 (07:52→20:55)
[2016-09-14] MEDS: CEFEPIME INJ 2,000 MG in SODIUM CHLORIDE 0.9% INJ 100 ML IV SCH ×2 (07:53→16:35)
--- NOTE | 2016-09-14 08:52 | HHI.PR ---
Subjective Remarks Follow-up Coumadin toxicity/right chest wall hematoma 09/08/16-patient seen and examined, complains of back pain mostly on the right side. Patient somehow confused but alert. I spoke to patient's son Fred [phone]. 09/09/16-patient seen and examined, denies currently any headache or right flank pain. Stable. Afebrile 09/10/16-patient seen and examined, now with possible HCAP for which she was started on IV antibiotics, patient also with acute respiratory failure and currently on venti mask. Fred Willett and Nory in the room 09/11/16-patient seen and examined, afebrile, stable on Ventimask however 94 percent.Patient taking some steps with the help of PT in the room 09/12/16-patient seen and examined, only complain of right sided flank pain. INR 1.2 and currently on 4 L nasal cannula. Afebrile. 09/13/16-patient seen and examined, refusing to eat this morning states she is not hungry. INR still 1.2 and patient's statting @96% on 4 L 09/14/16-patient seen and examined, no acute event overnight and stable at 4 L nasal cannula. Afebrile. Patient states she would like to be discharged home and not rehab Objective Vitals Vital Signs Date Time Temp Pulse Resp B/P Pulse Ox O2 Delivery O2 Flow Rate FiO2 09/14/16 07:53 Nasal Cannula 4.00 21 Humidified 09/14/16 04:25 96.7 79 16 130/54 94 09/14/16 00:37 97.9 76 17 100/53 95 09/13/16 21:51 97 Nasal Cannula 4.00 09/13/16 21:45 Nasal Cannula 4.00 Humidified 09/13/16 20:51 96.9 80 18 116/51 93 09/13/16 20:00 77 09/13/16 16:00 96.0 74 16 101/43 97 09/13/16 12:00 97.8 73 18 104/52 93 09/13/16 09:00 Nasal Cannula 4.00 21 I/O 09/13/16 09/13/16 09/13/16 09/14/16 09/14/16 09/14/16 07:00 15:00 23:00 07:00 15:00 23:00 Intake Total 280 ml 600 ml 533 ml 480 ml Output Total 300 ml Balance 280 ml 300 ml 533 ml 480 ml Intake Oral 180 ml 600 ml 480 ml 480 ml IV Total 100 ml 53 ml Output Urine Total 300 ml # Voids 1 3 5 # Bowel Movements 2 2 2 Result Diagram: 09/13/16 0529 09/13/16 0529 Imaging Last Impressions Chest X-Ray 09/10/16 0000 Signed Impressions: Service Date/Time: Saturday, September 10, 2016 05:04 - CONCLUSION: 1. Left- sided retrocardiac density characteristic of atelectasis or pneumonia. Mild right basilar airspace disease. Previous median sternotomy. Drain in right chest wall. Rao Bolanos MD Consultation 09/04/16 1435 Signed Impressions: Service Date/Time: Sunday, September 04, 2016 14:35 - CONCLUSION: The complex right chest wall hematoma appears to be deep to the pectoralis major muscle. We could attempt drainage if needed clinically. Typically with a hematoma of this age and complex appearance we are usually unsuccessful at draining a significant portion of the hematoma. However, this could be attempted if needed clinically. Findings were discussed with Dr. [place]. Ganga Patel MD Radius/Ulna X-Ray 09/03/16 1103 Signed Impressions: Service Date/Time: Saturday, September 03, 2016 11:28 - CONCLUSION: No acute bony injury Cirilo Christensen MD Humerus X-Ray 09/03/16 1103 Signed Impressions: Service Date/Time: Saturday, September 03, 2016 11:25 - CONCLUSION: Unremarkable examination of the right humerus. Cirilo Christensen MD Chest CT 09/03/16 1103 Signed Impressions: Service Date/Time: Saturday, September 03, 2016 12:39 - CONCLUSION: Large right breast/chest wall mass may simply be large hematoma, however underlying neoplastic process should additionally be considered and either close clinical and mammographic followup or additional short-term evaluation with pre-and postcontrast MRI may be beneficial. 5.7 cm aneurysm of the ascending thoracic aorta. Ganga Michael MD Objective Remarks GENERAL: NAD SKIN: Warm and dry. Right chest wall hematoma HEAD: Normocephalic. EYES: No scleral icterus. No injection or drainage. NECK: Supple, trachea midline. No JVD or lymphadenopathy. CARDIOVASCULAR: Irregular Regular rate and rhythm without murmurs, gallops, or rubs. RESPIRATORY: Breath sounds equal bilaterally. No accessory muscle use. GASTROINTESTINAL: Abdomen soft, non-tender, nondistended. MUSCULOSKELETAL: No cyanosis, or edema. BACK: Nontender without obvious deformity. No CVA tenderness. Procedures Right chest wall hematoma evacuation A/P Problem List: (1) Supratherapeutic INR ICD Code: R79.1 Status: Resolved (2) Coumadin toxicity ICD Code: T45.511A Status: Resolved (3) History of mechanical aortic valve replacement ICD Code: Z95.2 Status: Chronic (4) Chest wall hematoma ICD Code: S20.219A Status: Acute (5) Contusion of right arm ICD Code: S40.021A Status: Acute (6) Acute renal failure ICD Code: N17.9 Status: Acute (7) Anemia due to acute blood loss ICD Code: D62 Status: Acute (8) HCAP (healthcare-associated pneumonia) ICD Code: J18.9 Status: Acute (9) Acute respiratory failure with hypoxemia ICD Code: J96.01 Status: Acute Assessment and Plan 85-year-old female with 1. Right chest wall hematoma: S/P irrigation and drainage of the hematoma, Appreciate general surgery input, however signed off 09/13/16. 2. Coumadin toxicity: Resolved. s/p 4 units of FFP . Patient is on Coumadin chronically for mechanical aortic valve. 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 INR currently 1.1 4. Seizure disorder: Stable and Continue Keppra. 5. Thoracic aortic aneurysm: Appreciate cardiothoracic surgery recommendations. Continue medical management. No surgical intervention due to advanced age, high risk. 6. History of diastolic congestive heart failure: Currently asymptomatic. 7. Acute renal failure: Resolved s/p IV fluid hydration 8. DVT prophylaxis: Heparin drip with Coumadin 9. Anemia secondary to acute blood loss: transfused of 2 units PRBCs. Monitor H&H 10. HACP: CXR with finding of Left-sided retrocardiac density characteristic of atelectasis or pneumonia; currently on IV cefepime and s/p vancomycin . Incentive spirometer by the bedside 11. Acute respiratory failure: Improving and wean oxygen NC, encourage incentive spirometer use and continue treatment for pneumonia and DuoNeb when necessary Problem Qualifiers (1) Coumadin toxicity: Qualified Code: T45.511A - Coumadin toxicity, accidental or unintentional, initial encounter (2) Chest wall hematoma: Qualified Code: S20.211A - Chest wall hematoma, right, initial encounter (3) Contusion of right arm: Qualified Code: S40.021A - Contusion of right arm, initial encounter Arthur Akbar MD Sep 14, 2016 08:52
[2016-09-14] MEDS: ACETAMINOPHEN/HYDROcodone 325 MG/5 MG TAB PO PRN (15:18)
[2016-09-14] MEDS: WARFARIN SOD 2 MG TAB PO SCH (16:34)
[2016-09-14] MEDS: GABAPENTIN 300 MG CAP PO SCH (20:55)
[2016-09-14] MEDS: ACETAMINOPHEN/HYDROcodone 325 MG/7.5 MG TAB PO PRN (20:55)
[2016-09-14] MEDS: MIRTAZAPINE 15 MG TAB PO SCH (20:55)
[2016-09-14] MEDS: HEPARIN-D5W INJ 250 ML IV SCH (21:01)
[2016-09-15] VITALS (9 sets, daily range): BP systolic 95–138; BP diastolic 51–84; PULSE 64–101; RESP 16–18; TEMP 96–97.9; O2SAT 95–97
[2016-09-15] MEDS: CEFEPIME INJ 2,000 MG in SODIUM CHLORIDE 0.9% INJ 100 ML IV SCH ×4 (00:16→23:37)
[2016-09-15] MEDS: RESP: ALBUTEROL 2.5 MG/IPRATROPIUM 0.5 MG NEB (SCH) NEB ×4 (03:42→20:12)
[2016-09-15 06:16] LABS: APTT (PATIENT) 75.5 SEC (24.3-30.1)
[2016-09-15] MEDS: levETIRAcetam 500 MG TAB PO SCH ×2 (09:07→20:36)
--- NOTE | 2016-09-15 10:22 | HHI.PR ---
Subjective Remarks Follow-up Coumadin toxicity/right chest wall hematoma 09/08/16-patient seen and examined, complains of back pain mostly on the right side. Patient somehow confused but alert. I spoke to patient's son Fred [phone]. 09/09/16-patient seen and examined, denies currently any headache or right flank pain. Stable. Afebrile 09/10/16-patient seen and examined, now with possible HCAP for which she was started on IV antibiotics, patient also with acute respiratory failure and currently on venti mask. Fred Willett and Nory in the room 09/11/16-patient seen and examined, afebrile, stable on Ventimask however 94 percent.Patient taking some steps with the help of PT in the room 09/12/16-patient seen and examined, only complain of right sided flank pain. INR 1.2 and currently on 4 L nasal cannula. Afebrile. 09/13/16-patient seen and examined, refusing to eat this morning states she is not hungry. INR still 1.2 and patient's statting @96% on 4 L 09/14/16-patient seen and examined, no acute event overnight and stable at 4 L nasal cannula. Afebrile. Patient states she would like to be discharged home and not rehab 09/15/16-patient seen and examined, currently on 3 L nasal cannula and afebrile. Objective Vitals Vital Signs Date Time Temp Pulse Resp B/P Pulse Ox O2 Delivery O2 Flow Rate FiO2 09/15/16 08:00 96.0 64 16 110/57 96 09/15/16 05:13 97.3 75 17 95/54 97 09/15/16 00:28 96.8 79 18 103/51 95 09/14/16 21:23 96 Nasal Cannula 3.00 09/14/16 20:39 98.5 100 16 100/50 95 09/14/16 16:00 96.3 84 21 114/55 100 09/14/16 12:00 96.4 82 22 100/49 98 I/O 09/14/16 09/14/16 09/14/16 09/15/16 09/15/16 09/15/16 07:00 15:00 23:00 07:00 15:00 23:00 Intake Total 480 ml 240 ml 480 ml 280 ml Balance 480 ml 240 ml 480 ml 280 ml Intake Oral 480 ml 240 ml 480 ml 280 ml # Voids 5 1 4 3 # Bowel Movements 2 2 2 1 Result Diagram: 09/13/1652809/13/16528 Objective Remarks GENERAL: NAD SKIN: Warm and dry. Right chest wall hematoma HEAD: Normocephalic. EYES: No scleral icterus. No injection or drainage. NECK: Supple, trachea midline. No JVD or lymphadenopathy. CARDIOVASCULAR: Irregular Regular rate and rhythm without murmurs, gallops, or rubs. RESPIRATORY: Breath sounds equal bilaterally. No accessory muscle use. GASTROINTESTINAL: Abdomen soft, non-tender, nondistended. MUSCULOSKELETAL: No cyanosis, or edema. BACK: Nontender without obvious deformity. No CVA tenderness. Procedures Right chest wall hematoma evacuation A/P Problem List: (1) Supratherapeutic INR ICD Code: R79.1 Status: Resolved (2) Coumadin toxicity ICD Code: T45.511A Status: Resolved (3) History of mechanical aortic valve replacement ICD Code: Z95.2 Status: Chronic (4) Chest wall hematoma ICD Code: S20.219A Status: Acute (5) Contusion of right arm ICD Code: S40.021A Status: Acute (6) Acute renal failure ICD Code: N17.9 Status: Acute (7) Anemia due to acute blood loss ICD Code: D62 Status: Acute (8) HCAP (healthcare-associated pneumonia) ICD Code: J18.9 Status: Acute (9) Acute respiratory failure with hypoxemia ICD Code: J96.01 Status: Acute Assessment and Plan 85-year-old female with 1. Right chest wall hematoma: S/P irrigation and drainage of the hematoma, Appreciate general surgery input, however signed off 09/13/16. 2. Coumadin toxicity: Resolved. s/p 4 units of FFP . Patient is on Coumadin chronically for mechanical aortic valve. 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 INR currently 1.1 4. Seizure disorder: Stable and Continue Keppra. 5. Thoracic aortic aneurysm: Appreciate cardiothoracic surgery recommendations. Continue medical management. No surgical intervention due to advanced age, high risk. 6. History of diastolic congestive heart failure: Currently asymptomatic. 7. Acute renal failure: Resolved s/p IV fluid hydration 8. DVT prophylaxis: Heparin drip with Coumadin 9. Anemia secondary to acute blood loss: transfused of 2 units PRBCs. Monitor H&H 10. HACP: CXR with finding of Left-sided retrocardiac density characteristic of atelectasis or pneumonia; currently on IV cefepime . Incentive spirometer by the bedside 11. Acute respiratory failure: Improving and wean oxygen NC and currently on 3 L , encourage incentive spirometer use and continue treatment for pneumonia and DuoNeb when necessary Problem Qualifiers (1) Coumadin toxicity: Qualified Code: T45.511A - Coumadin toxicity, accidental or unintentional, initial encounter (2) Chest wall hematoma: Qualified Code: S20.211A - Chest wall hematoma, right, initial encounter (3) Contusion of right arm: Qualified Code: S40.021A - Contusion of right arm, initial encounter Arthur Akbar MD Sep 15, 2016 10:22
[2016-09-15] MEDS: WARFARIN SOD 1 MG TAB PO SCH (15:05)
[2016-09-15 15:25] LABS: APTT (PATIENT) 54.4 SEC (24.3-30.1); INTERNATIONAL NORMALIZED RATIO 1.2 RATIO; PROTHROMBIN TIME - PATIENT 13.3 SEC (9.8-11.6)
[2016-09-15] MEDS: ACETAMINOPHEN/HYDROcodone 325 MG/7.5 MG TAB PO PRN (17:31)
[2016-09-15] MEDS: GABAPENTIN 300 MG CAP PO SCH (20:36)
[2016-09-15] MEDS: MIRTAZAPINE 15 MG TAB PO SCH (20:36)
[2016-09-15 21:47] LABS: APTT (PATIENT) 52.9 SEC (24.3-30.1)
[2016-09-15] MEDS: HEPARIN-D5W INJ 250 ML IV SCH (23:43)
[2016-09-16] VITALS (9 sets, daily range): BP systolic 102–117; BP diastolic 54–59; PULSE 72–84; RESP 16–20; TEMP 97.3–99.3; O2SAT 92–97
[2016-09-16] MEDS: RESP: ALBUTEROL 2.5 MG/IPRATROPIUM 0.5 MG NEB (SCH) NEB ×4 (04:18→21:17)
[2016-09-16] MEDS ORDERED: PHARMACY ORDERED LAB XX ONE (05:45)
[2016-09-16 07:09] LABS: AUTOMATED NEUTROPHIL # 3.9 TH/MM3 (1.8-7.7); BASOPHIL # 0.1 TH/MM3 (0-0.2); BASOPHIL % 1.4 % (0.0-2.0); EOSINOPHIL # 0.3 TH/MM3 (0-0.4); EOSINOPHIL % 5.2 % (0.0-4.0); HEMATOCRIT 28.8 % (35.0-46.0); HEMO FLAGS DIFF FINAL; LYMPH % 20.7 % (9.0-44.0); LYMPHOCYTE # 1.3 TH/MM3 (1.0-4.8); MEAN CELL VOLUME 91.5 FL (80.0-100.0); MEAN CORPUSCULAR HEMOGLOBIN 30.2 PG (27.0-34.0); MEAN CORPUSCULAR HGB CONC 32.9 % (32.0-36.0); NEUT % 61.7 % (16.0-70.0); PLATELET COUNT 292 TH/MM3 (150-450); RED BLOOD COUNT 3.15 MIL/MM3 (4.00-5.30); RED CELL DISTRIBUTION WIDTH 15.6 % (11.6-17.2); WHITE BLOOD COUNT 6.3 TH/MM3 (4.0-11.0)
[2016-09-16 07:21] LABS: BICARBONATE 26.9 MEQ/L (21.0-32.0); POTASSIUM 3.6 MEQ/L (3.5-5.1)
[2016-09-16 07:30] LABS: APTT (PATIENT) 45.2 SEC (24.3-30.1); INTERNATIONAL NORMALIZED RATIO 1.2 RATIO; PROTHROMBIN TIME - PATIENT 13.8 SEC (9.8-11.6)
[2016-09-16] MEDS: levETIRAcetam 500 MG TAB PO SCH ×2 (09:25→21:12)
[2016-09-16] MEDS: CEFEPIME INJ 2,000 MG in SODIUM CHLORIDE 0.9% INJ 100 ML IV SCH ×3 (09:26→23:16)
--- NOTE | 2016-09-16 09:50 | HHI.PR ---
Subjective Remarks Follow-up Coumadin toxicity/right chest wall hematoma 09/08/16-patient seen and examined, complains of back pain mostly on the right side. Patient somehow confused but alert. I spoke to patient's son Fred [phone]. 09/09/16-patient seen and examined, denies currently any headache or right flank pain. Stable. Afebrile 09/10/16-patient seen and examined, now with possible HCAP for which she was started on IV antibiotics, patient also with acute respiratory failure and currently on venti mask. Fred Willett and Nory in the room 09/11/16-patient seen and examined, afebrile, stable on Ventimask however 94 percent.Patient taking some steps with the help of PT in the room 09/12/16-patient seen and examined, only complain of right sided flank pain. INR 1.2 and currently on 4 L nasal cannula. Afebrile. 09/13/16-patient seen and examined, refusing to eat this morning states she is not hungry. INR still 1.2 and patient's statting @96% on 4 L 09/14/16-patient seen and examined, no acute event overnight and stable at 4 L nasal cannula. Afebrile. Patient states she would like to be discharged home and not rehab 09/15/16-patient seen and examined, currently on 3 L nasal cannula and afebrile. 09/16/16-patient seen and examined, worsening cough production however patient afebrile. Decrease appetite. Objective Vitals Vital Signs Date Time Temp Pulse Resp B/P Pulse Ox O2 Delivery O2 Flow Rate FiO2 09/16/16 08:00 97.3 72 16 102/54 97 09/16/16 07:15 96 21 09/16/16 04:20 92 Nasal Cannula 2.00 09/16/16 04:00 97.6 84 20 115/58 95 09/16/16 00:00 97.9 73 18 113/59 95 09/15/16 21:00 3.00 09/15/16 20:14 97 Nasal Cannula 2.00 09/15/16 20:00 97.0 78 18 119/56 95 09/15/16 18:11 71 09/15/16 16:00 97.2 75 17 103/51 96 09/15/16 12:00 97.9 83 16 102/55 95 09/15/16 10:54 96 Nasal Cannula 3.00 I/O 09/15/16 09/15/16 09/15/16 09/16/16 09/16/16 09/16/16 07:00 15:00 23:00 07:00 15:00 23:00 Intake Total 280 ml 946 ml 120 ml 120 ml 114 ml Output Total 675 ml 250 ml Balance 280 ml 271 ml 120 ml -130 ml 114 ml Intake Oral 280 ml 600 ml 120 ml 120 ml IV Total 346 ml 114 ml Output Urine Total 675 ml 250 ml # Voids 3 2 # Bowel Movements 1 1 0 0 Result Diagram: 09/16/1653009/16/16530 Objective Remarks GENERAL: NAD SKIN: Warm and dry. Right chest wall ecchymosis HEAD: Normocephalic. EYES: No scleral icterus. No injection or drainage. NECK: Supple, trachea midline. No JVD or lymphadenopathy. CARDIOVASCULAR: Irregular Regular rate and rhythm without murmurs, gallops, or rubs. RESPIRATORY: Breath sounds decrease bilaterally. No accessory muscle use. GASTROINTESTINAL: Abdomen soft, non-tender, nondistended. MUSCULOSKELETAL: No cyanosis, or edema. BACK: Nontender without obvious deformity. No CVA tenderness. Procedures Right chest wall hematoma evacuation A/P Problem List: (1) Supratherapeutic INR ICD Code: R79.1 Status: Resolved (2) Coumadin toxicity ICD Code: T45.511A Status: Resolved (3) History of mechanical aortic valve replacement ICD Code: Z95.2 Status: Chronic (4) Chest wall hematoma ICD Code: S20.219A Status: Acute (5) Contusion of right arm ICD Code: S40.021A Status: Acute (6) Acute renal failure ICD Code: N17.9 Status: Acute (7) Anemia due to acute blood loss ICD Code: D62 Status: Acute (8) HCAP (healthcare-associated pneumonia) ICD Code: J18.9 Status: Acute (9) Acute respiratory failure with hypoxemia ICD Code: J96.01 Status: Acute Assessment and Plan 85-year-old female with 1. Right chest wall hematoma: S/P irrigation and drainage of the hematoma, Appreciate general surgery input, however signed off 09/13/16. 2. Coumadin toxicity: Resolved. s/p 4 units of FFP . Patient is on Coumadin chronically for mechanical aortic valve. 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 INR currently 1.2 4. Seizure disorder: Stable and Continue Keppra. 5. Thoracic aortic aneurysm: Appreciate cardiothoracic surgery recommendations. Continue medical management. No surgical intervention due to advanced age, high risk. 6. History of diastolic congestive heart failure: Currently asymptomatic. 7. Acute renal failure: Resolved s/p IV fluid hydration 8. DVT prophylaxis: Heparin drip with Coumadin 9. Anemia secondary to acute blood loss: transfused of 2 units PRBCs. Monitor H&H 10. HACP: Repeat CXR today 09/16/16 due to worsening cough. Continue IV cefepime . Incentive spirometer by the bedside 11. Acute respiratory failure: Resolved and wean oxygen NC and currently on 3 L , encourage incentive spirometer use and continue treatment for pneumonia and DuoNeb when necessary Problem Qualifiers (1) Coumadin toxicity: Qualified Code: T45.511A - Coumadin toxicity, accidental or unintentional, initial encounter (2) Chest wall hematoma: Qualified Code: S20.211A - Chest wall hematoma, right, initial encounter (3) Contusion of right arm: Qualified Code: S40.021A - Contusion of right arm, initial encounter Arthur Akbar MD Sep 16, 2016 09:50
--- NOTE | 2016-09-16 10:09 | RADRPT ---
EXAM DATE/TIME: 09/16/2016 10:00 [facility] COMPARISON: CHEST SINGLE AP, September 10, 2016, 5:04. INDICATIONS : Cough MEDICAL HISTORY : Cardiovascular disease. Stroke. SURGICAL HISTORY : CABG. ENCOUNTER: Subsequent ACUITY: 1 week PAIN SCORE: 0/10 LOCATION: Bilateral chest FINDINGS: Portable AP view of the chest demonstrates a normal-sized cardiac silhouette. Patient is post median sternotomy. There is mild atelectasis at the right lung base and there is improved aeration in the le ft lower lobe with some residual airspace opacity present. No pleural effusion or pneumothorax is sahara ntified. Bones demonstrate no acute finding. CONCLUSION: Improved aeration in the left lower lobe with some mild residual airspace opacity present representin g either atelectasis or airspace consolidation. No other acute finding is identified. Ganga Patel MD on September 16, 2016 at 10:06 Board Certified Radiologist. This report was verified electronically.
[2016-09-16] MEDS: WARFARIN SOD 1 MG TAB PO SCH (16:28)
[2016-09-16] MEDS: ACETAMINOPHEN/HYDROcodone 325 MG/5 MG TAB PO PRN (18:34)
[2016-09-16] MEDS: MIRTAZAPINE 15 MG TAB PO SCH (21:12)
[2016-09-16] MEDS: GABAPENTIN 300 MG CAP PO SCH (21:12)
[2016-09-17] VITALS (7 sets, daily range): BP systolic 94–122; BP diastolic 50–66; PULSE 69–78; RESP 16–22; TEMP 96.4–97.7; O2SAT 92–98
[2016-09-17] MEDS: RESP: ALBUTEROL 2.5 MG/IPRATROPIUM 0.5 MG NEB (SCH) NEB (03:10)
[2016-09-17] MEDS: HEPARIN-D5W INJ 250 ML IV SCH (04:18)
[2016-09-17 06:08] LABS: APTT (PATIENT) 45.8 SEC (24.3-30.1)
[2016-09-17] MEDS: levETIRAcetam 500 MG TAB PO SCH ×2 (09:49→20:52)
[2016-09-17] MEDS: CEFEPIME INJ 2,000 MG in SODIUM CHLORIDE 0.9% INJ 100 ML IV SCH ×2 (09:49→16:00)
--- NOTE | 2016-09-17 10:48 | HHI.PR ---
Subjective Remarks sitting on the chair with no distress. has mild headache. otherwise no other complaints. Objective Vitals Vital Signs Date Time Temp Pulse Resp B/P Pulse Ox O2 Delivery O2 Flow Rate FiO2 09/17/16 08:00 97.7 69 20 102/50 92 09/17/16 04:00 96.9 71 18 103/53 96 09/17/16 00:00 96.4 70 16 115/62 96 09/16/16 20:00 99.3 76 18 117/59 95 09/16/16 19:34 18 09/16/16 16:00 98.3 76 18 115/56 96 09/16/16 15:13 96 Nasal Cannula 2.00 09/16/16 12:00 97.8 78 17 104/58 93 I/O 09/16/16 09/16/16 09/16/16 09/17/16 09/17/16 09/17/16 07:00 15:00 23:00 07:00 15:00 23:00 Intake Total 120 ml 1016 ml 240 ml 120 ml 64 ml Output Total 250 ml 350 ml 350 ml 500 ml Balance -130 ml 666 ml -110 ml -380 ml 64 ml Intake Oral 120 ml 720 ml 240 ml 120 ml IV Total 296 ml 64 ml Output Urine Total 250 ml 350 ml 350 ml 500 ml # Bowel Movements 0 0 0 0 Result Diagram: 09/16/16 0531 09/16/16 0531 Imaging Last Impressions Chest X-Ray 09/16/16 0000 Signed Impressions: Service Date/Time: Friday, September 16, 2016 10:00 - CONCLUSION: Improved aeration in the left lower lobe with some mild residual airspace opacity present representing either atelectasis or airspace consolidation. No other acute finding is identified. Ganga Patel MD Consultation 09/04/16 [id number] Signed Impressions: Service Date/Time: Sunday, September 04, 2016 14:35 - CONCLUSION: The complex right chest wall hematoma appears to be deep to the pectoralis major muscle. We could attempt drainage if needed clinically. Typically with a hematoma of this age and complex appearance we are usually unsuccessful at draining a significant portion of the hematoma. However, this could be attempted if needed clinically. Findings were discussed with Dr. [place]. Ganga Patel MD Radius/Ulna X-Ray 09/03/16 1103 Signed Impressions: Service Date/Time: Saturday, September 03, 2016 11:28 - CONCLUSION: No acute bony injury Cirilo Christensen MD Humerus X-Ray 09/03/[id number] Signed Impressions: Service Date/Time: Saturday, September 03, 2016 11:25 - CONCLUSION: Unremarkable examination of the right humerus. Cirilo Christensen MD Chest CT 09/03/[id number] Signed Impressions: Service Date/Time: Saturday, September 03, 2016 12:39 - CONCLUSION: Large right breast/chest wall mass may simply be large hematoma, however underlying neoplastic process should additionally be considered and either close clinical and mammographic followup or additional short-term evaluation with pre-and postcontrast MRI may be beneficial. 5.7 cm aneurysm of the ascending thoracic aorta. Ganga Michael MD Objective Remarks GENERAL: This is a well-nourished, well-developed patient, in no apparent distress. CARDIOVASCULAR: Regular rate and regular rhythm without murmurs, gallops, or rubs. RESPIRATORY: Clear to auscultation. Breath sounds equal bilaterally. No wheezes , rales, or rhonchi. GASTROINTESTINAL: Abdomen soft, non-tender, nondistended. Normal, active bowel sounds MUSCULOSKELETAL: Extremities without clubbing, cyanosis, or edema. NEURO: Alert & Oriented x4 to person, place, time, situation. Moves all ext x4 skin; ecchymosis on the right breast/ chest wall Procedures Right chest wall hematoma evacuation Medications and IVs Current Medications Phytonadione 10 mg 10 mg ONCE ONCE SQ Last administered on 09/03/16 13:23; Start 09/03/16 at 12:15; Stop 09/03/16 at 12:16; Status DC Sodium Chloride (NS 1000 ml Inj) 1,000 ml @ 70 mls/hr [id number] IV Last administered on 09/03/16 13:24; Start 09/03/16 at 12:30; Stop 09/03/16 at 14:34 ; Status DC Gabapentin (Neurontin) 300 mg HS PO Last administered on 09/16/16 21:12; Start 09/03/16 at 21:00 Levetriacetam (Keppra) 500 mg BID PO Last administered on 09/17/16 09:49; Start 09/03/16 at 21:00 Meclizine HCl (Antivert) 25 mg TID PRN PO DIZZINESS; Start 09/03/16 at 14:30 Mirtazapine (Remeron) 7.5 mg HS PO Last administered on 09/16/16 21:12; Start 09/03/16 at 21:00 Acetaminophen (Tylenol) 650 mg Q4H PRN PO TEMP > 100.4 Last administered on 09/17 09:45; Start 09/03/16 at 14:30 Ondansetron HCl (Zofran Inj) 4 mg Q6H PRN IVP NAUSEA OR VOMITING; Start at 14:30 Magnesium Hydroxide (Milk Of Magncl[place] Liq) 30 ml Q12H PRN PO CONSTIPATION; Start 09/03/16 at 14:30 Acetaminophen (Tylenol) 650 mg Q6H PRN PO PAIN SCALE 1 TO 2 Last administered on 09/08/16 13:04; Start 09/03/16 at 14:30 Acetaminophen/ Hydrocodone Bitart ([place] 5-325 Mg) 1 tab Q4H PRN PO PAIN SCALE 3 TO 5 Last administered on 09/16/16 18:34; Start 09/03/16 at 14:30 Acetaminophen/ Hydrocodone Bitart ([place] 7.5-325 Mg) 1 tab Q4H PRN PO PAIN SCALE 6 TO 10 Last administered on 09/15/16 17:31; Start 09/03/16 at 14:30 Naloxone HCl 0.4 mg 0.4 mg UNSCH PRN IV SEE LABEL COMMENTS; Start 09/03/16 at 14:30 Potassium Chloride/Sodium Chloride (NS + KCl 20 Meq Inj) 1,000 ml @ 75 mls/hr [id number] IV Last administered on 09/05/16 12:54; Start 09/03/16 at 16:00; Stop 09/06/16 at 13:32; Status DC Albuterol/ Ipratropium (Duoneb Neb) 1 ampule QID NEB NEB Last administered on 09/07/16 15:48; Start 09/03/16 at 16:00; Stop 09/07/16 at 16:00; Status DC Albuterol Sulfate (Albuterol Neb) 2.5 mg Q2HR NEB PRN NEB DYSPNEA Last administered on 09/10/16 04:27; Start 09/03/16 at 14:45 Furosemide (Lasix Inj) 20 mg ONCE PRN IV PUSH give between each prbc Last administered on 09/04/16 03:23; Start 09/03/16 at 21:15; Stop 09/04/16 at 04:00 ; Status DC Morphine Sulfate (Morphine Inj) 1 mg Q3H PRN IV PUSH BREAKTHROUGH PAIN Last administered on 09/06/16 15:58; Start 09/04/16 at 15:15 Furosemide 20 mg 20 mg ONCE ONCE IV PUSH ; Start 09/04/16 at 16:15; Stop at 16:16; Status DC Cefazolin Sodium/ Dextrose (Ancef 2 Gm Premix) 50 ml @ As Directed STK-MED ONCE .ROUTE ; Start 09/04/16 at 19:27; Stop 09/04/16 at 19:28; Status DC Cefazolin Sodium (Ancef Inj) 4,000 mg STK-MED ONCE .ROUTE ; Start 09/04/16 at 19 :27; Stop 09/04/16 at 19:28; Status DC Lidocaine HCl (Xylocaine 1% Inj (50 ml)) 50 ml STK-MED ONCE .ROUTE ; Start 09/04 at 19:27; Stop 09/04/16 at 19:28; Status DC Fentanyl Citrate (fentaNYL INJ) 250 mcg STK-MED ONCE .ROUTE ; Start 09/04/16 at 22:23; Stop 09/04/16 at 22:24; Status DC Miscellaneous Information ALL NURSING DEPARTME... UNSCH PRN XX SEE LABEL COMMENTS; Start 09/04/16 at 22:00; Stop 09/05/16 at 21:59; Status DC Morphine Sulfate (*morphine INJ PERIprocedure ONLY) 8 mg STK-MED ONCE .ROUTE Last administered on 09/04/16 23:10; Start 09/04/16 at 23:06; Stop 09/04/16 at 23:07; Status DC Etomidate (Amidate Inj) 20 mg STK-MED ONCE IV PUSH ; Start 09/04/16 at 10:25; Stop 09/05/16 at 10:26; Status DC Phenylephrine HCl (Neosynephrine/ NS 1000 Mcg/10ml Syr) 1,000 mcg STK-MED ONCE IV ; Start 09/04/16 at 10:25; Stop 09/05/16 at 10:26; Status DC Ondansetron HCl 4 mg 4 mg STK-MED ONCE IV PUSH ; Start 09/04/16 at 10:25; Stop 09/05/16 at 10:26; Status DC Parenteral Electrolytes 2,000 ml @ As Directed STK-MED ONCE IV ; Start at 10:25; Stop 09/05/16 at 10:26; Status DC Sodium Chloride (NS 500 ml Inj) 500 ml @ 500 mls/hr BOLUS ONCE IV Last administered on 09/05/16 13:56; Start 09/05/16 at 14:00; Stop 09/05/16 at 14:59 ; Status DC Heparin Sodium (Porcine) (Heparin Inj) 2,000 units ONCE ONCE IV Last administered on 09/07/16 08:40; Start 09/07/16 at 08:00; Stop 09/07/16 at 08:01 ; Status DC Heparin Sodium (Porcine) (Heparin Inj) 5,000 units UNSCH PRN IV APTT LESS THAN 25; Start 09/07/16 at 13:45 Heparin Sodium (Porcine) 2500 units 2,500 units UNSCH PRN IV APTT 25 TO 39; Start 09/07/16 at 13:45 Heparin Sodium/ Dextrose (Heparin-D5W Inj) 250 ml @ 0 mls/hr TITRATE IV Last administered on 09/17/16 04:18; Start 09/07/16 at 07:45 Warfarin Sodium (Coumadin) 2 mg MoWeFr@16 PO Last administered on 09/14/16 16: 34; Start 09/07/16 at 16:00 Warfarin Sodium (Coumadin) 1 mg SuTuThSa@16 PO Last administered on 09/16/16 16 :28; Start 09/08/16 at 16:00 Albuterol/ Ipratropium 1 ampule 1 ampule Q6HR NEB NEB Last administered on 09/17 03:10; Start 09/10/16 at 06:15; Stop 09/17/16 at 10:00; Status DC Cefepime HCl 2000 mg/Sodium Chloride 100 ml @ 200 mls/hr Q8H IV Last administered on 09/17/16 09:49; Start 09/10/16 at 08:00 Vancomycin HCl 1000 mg/Sodium Chloride 250 ml @ 250 mls/hr ONCE ONCE IV Last administered on 09/10/16 06:42; Start 09/10/16 at 06:30; Stop 09/10/16 at 07:29 ; Status DC Pharmacy Profile Note 0 ml @ 0 mls/hr UNSCH OTHER ; Start 09/10/16 at 06:30; Stop 09/13/16 at 12:43; Status DC Vancomycin HCl/ Sodium Chloride (Vancomycin Inj/ NS 250 ml Inj) 250 ml @ 250 mls/hr Q24H IV Last administered on 09/13/16 05:25; Start 09/11/16 at 06:00; Stop 09/13/16 at 09:34; Status DC Miscellaneous Information SPECIFIC LAB TO BE EFRAIN... ONCE ONCE XX Last administered on 09/13/16 05:25; Start 09/13/16 at 05:45; Stop 09/13/16 at 05:46; Status DC Magnesium Citrate 300 ml 300 ml ONCE ONCE PO Last administered on 09/12/16 12: 52; Start 09/12/16 at 12:15; Stop 09/12/16 at 12:16; Status DC Vancomycin HCl/ Sodium Chloride (Vancomycin Inj/ NS 250 ml Inj) 250 ml @ 250 mls/hr Q18H IV ; Start 09/14/16 at 00:00; Stop 09/14/16 at 00:00; Status DC Miscellaneous Information SPECIFIC LAB TO BE DRAWN:VANCOMYCIN TROUGH DATE TO... ONCE ONCE XX ; Start 09/16/16 at 05:45; Stop 09/16/16 at 05:46; Status Cancel A/P Assessment and Plan A/P 1. Right chest wall hematoma: S/P irrigation and drainage of the hematoma, Appreciate general surgery input- signed off 09/13/16. 2. Coumadin toxicity: Resolved. s/p 4 units of FFP . Patient is on Coumadin chronically for mechanical aortic valve. 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 4. Seizure disorder: Stable and Continue Keppra. 5. Thoracic aortic aneurysm: Appreciate cardiothoracic surgery recommendations. Continue medical management. No surgical intervention due to advanced age, high risk. 6. History of diastolic congestive heart failure: Currently asymptomatic. 7. Acute renal failure: Resolved s/p IV fluid hydration 8. DVT prophylaxis: Heparin drip with Coumadin 9. Anemia secondary to acute blood loss: transfused of 2 units PRBCs. Monitor H&H 10. HACP: Continue IV cefepime . Incentive spirometer by the bedside 11. Acute respiratory failure: Resolved and wean oxygen NC and currently on 3 L , encourage incentive spirometer use and continue treatment for pneumonia and DuoNeb when necessary Discharge Planning dc planning to SNF when INR is therapeutic. Ananya Cervantes MD Sep 17, 2016 10:47
[2016-09-17 11:19] LABS: INTERNATIONAL NORMALIZED RATIO 1.2 RATIO; PROTHROMBIN TIME - PATIENT 13.1 SEC (9.8-11.6)
[2016-09-17] MEDS: ACETAMINOPHEN/HYDROcodone 325 MG/7.5 MG TAB PO PRN ×2 (14:52→20:52)
[2016-09-17] MEDS: WARFARIN SOD 2 MG TAB PO SCH (14:53)
[2016-09-17] MEDS: GABAPENTIN 300 MG CAP PO SCH (20:51)
[2016-09-17] MEDS: MIRTAZAPINE 15 MG TAB PO SCH (20:51)
[2016-09-18] VITALS (7 sets, daily range): BP systolic 104–121; BP diastolic 51–88; PULSE 58–75; RESP 16–24; TEMP 96.5–98.2; O2SAT 93–98
[2016-09-18] MEDS: CEFEPIME INJ 2,000 MG in SODIUM CHLORIDE 0.9% INJ 100 ML IV SCH ×3 (00:43→16:47)
[2016-09-18 06:17] LABS: INTERNATIONAL NORMALIZED RATIO 1.4 RATIO; PROTHROMBIN TIME - PATIENT 15.9 SEC (9.8-11.6)
[2016-09-18] MEDS: HEPARIN-D5W INJ 250 ML IV SCH (08:23)
[2016-09-18] MEDS: levETIRAcetam 500 MG TAB PO SCH ×2 (08:24→20:32)
--- NOTE | 2016-09-18 10:52 | HHI.PR ---
Subjective Remarks resting comfortably with no distress. denies pain. d/w the RN and no acute issues over night. Objective Vitals Vital Signs Date Time Temp Pulse Resp B/P Pulse Ox O2 Delivery O2 Flow Rate FiO2 09/18/16 08:00 97.5 65 16 106/64 97 09/18/16 04:00 97.5 64 22 111/53 97 09/18/16 00:00 97.0 58 22 106/51 98 09/17/16 20:40 98 Nasal Cannula 4.00 Humidified 09/17/16 20:00 97.6 70 22 111/57 95 09/17/16 20:00 72 09/17/16 16:00 96.8 78 17 122/66 98 09/17/16 12:00 97.3 75 19 94/55 95 09/17/16 11:15 93 I/O 09/17/16 09/17/16 09/17/16 09/18/16 09/18/16 09/18/16 07:00 15:00 23:00 07:00 15:00 23:00 Intake Total 120 ml 784 ml 387 ml 413 ml Output Total 500 ml 4 ml Balance -380 ml 780 ml 387 ml 413 ml Intake Oral 120 ml 720 ml 240 ml 240 ml IV Total 64 ml 100 ml Other 147 ml 73 ml Output Urine Total 500 ml 4 ml # Voids 3 1 # Bowel Movements 0 1 0 0 Result Diagram: 09/16/16 0531 09/16/16 0531 Imaging Last Impressions Chest X-Ray 09/16/16 0000 Signed Impressions: Service Date/Time: Friday, September 16, 2016 10:00 - CONCLUSION: Improved aeration in the left lower lobe with some mild residual airspace opacity present representing either atelectasis or airspace consolidation. No other acute finding is identified. Ganga Patel MD Consultation 09/04/16 1435 Signed Impressions: Service Date/Time: Sunday, September 04, 2016 14:35 - CONCLUSION: The complex right chest wall hematoma appears to be deep to the pectoralis major muscle. We could attempt drainage if needed clinically. Typically with a hematoma of this age and complex appearance we are usually unsuccessful at draining a significant portion of the hematoma. However, this could be attempted if needed clinically. Findings were discussed with Dr. [place]. Ganga Patel MD Radius/Ulna X-Ray 09/03/16 1103 Signed Impressions: Service Date/Time: Saturday, September 03, 2016 11:28 - CONCLUSION: No acute bony injury Cirilo Christensen MD Humerus X-Ray 09/03/16 1103 Signed Impressions: Service Date/Time: Saturday, September 03, 2016 11:25 - CONCLUSION: Unremarkable examination of the right humerus. Cirilo Christensen MD Chest CT 09/03/16 1103 Signed Impressions: Service Date/Time: Saturday, September 03, 2016 12:39 - CONCLUSION: Large right breast/chest wall mass may simply be large hematoma, however underlying neoplastic process should additionally be considered and either close clinical and mammographic followup or additional short-term evaluation with pre-and postcontrast MRI may be beneficial. 5.7 cm aneurysm of the ascending thoracic aorta. Ganga Michael MD Objective Remarks GENERAL: This is a well-nourished, well-developed patient, in no apparent distress. CARDIOVASCULAR: Regular rate and regular rhythm without murmurs, gallops, or rubs. RESPIRATORY: Clear to auscultation. Breath sounds equal bilaterally. No wheezes , rales, or rhonchi. GASTROINTESTINAL: Abdomen soft, non-tender, nondistended. Normal, active bowel sounds MUSCULOSKELETAL: Extremities without clubbing, cyanosis, or edema. NEURO: Alert & Oriented x4 to person, place, time, situation. Moves all ext x4 skin; ecchymosis on the right breast/ chest wall Procedures Right chest wall hematoma evacuation Medications and IVs Current Medications Phytonadione 10 mg 10 mg ONCE ONCE SQ Last administered on 09/03/16 13:23; Start 09/03/16 at 12:15; Stop 09/03/16 at 12:16; Status DC Sodium Chloride (NS 1000 ml Inj) 1,000 ml @ 70 mls/hr [id number] IV Last administered on 09/03/16 13:24; Start 09/03/16 at 12:30; Stop 09/03/16 at 14:34 ; Status DC Gabapentin (Neurontin) 300 mg HS PO Last administered on 09/17/16 20:51; Start 09/03/16 at 21:00 Levetriacetam (Keppra) 500 mg BID PO Last administered on 09/18/16 08:24; Start 09/03/16 at 21:00 Meclizine HCl (Antivert) 25 mg TID PRN PO DIZZINESS; Start 09/03/16 at 14:30 Mirtazapine (Remeron) 7.5 mg HS PO Last administered on 09/17/16 20:51; Start 09/03/16 at 21:00 Acetaminophen (Tylenol) 650 mg Q4H PRN PO TEMP > 100.4 Last administered on 09/17 09:45; Start 09/03/16 at 14:30 Ondansetron HCl (Zofran Inj) 4 mg Q6H PRN IVP NAUSEA OR VOMITING; Start at 14:30 Magnesium Hydroxide (Milk Of Magnesia Liq) 30 ml Q12H PRN PO CONSTIPATION; Start 09/03/16 at 14:30 Acetaminophen (Tylenol) 650 mg Q6H PRN PO PAIN SCALE 1 TO 2 Last administered on 09/08/16 13:04; Start 09/03/16 at 14:30 Acetaminophen/ Hydrocodone Bitart ([place] 5-325 Mg) 1 tab Q4H PRN PO PAIN SCALE 3 TO 5 Last administered on 09/16/16 18:34; Start 09/03/16 at 14:30 Acetaminophen/ Hydrocodone Bitart ([place] 7.5-325 Mg) 1 tab Q4H PRN PO PAIN SCALE 6 TO 10 Last administered on 09/17/16 20:52; Start 09/03/16 at 14:30 Naloxone HCl 0.4 mg 0.4 mg UNSCH PRN IV SEE LABEL COMMENTS; Start 09/03/16 at 14:30 Potassium Chloride/Sodium Chloride (NS + KCl 20 Meq Inj) 1,000 ml @ 75 mls/hr [id number] IV Last administered on 09/05/16 12:54; Start 09/03/16 at 16:00; Stop 09/06/16 at 13:32; Status DC Albuterol/ Ipratropium (Duoneb Neb) 1 ampule QID NEB NEB Last administered on 09/07/16 15:48; Start 09/03/16 at 16:00; Stop 09/07/16 at 16:00; Status DC Albuterol Sulfate (Albuterol Neb) 2.5 mg Q2HR NEB PRN NEB DYSPNEA Last administered on 09/10/16 04:27; Start 09/03/16 at 14:45 Furosemide (Lasix Inj) 20 mg ONCE PRN IV PUSH give between each prbc Last administered on 09/04/16 03:23; Start 09/03/16 at 21:15; Stop 09/04/16 at 04:00 ; Status DC Morphine Sulfate (Morphine Inj) 1 mg Q3H PRN IV PUSH BREAKTHROUGH PAIN Last administered on 09/06/16 15:58; Start 09/04/16 at 15:15 Furosemide 20 mg 20 mg ONCE ONCE IV PUSH ; Start 09/04/16 at 16:15; Stop at 16:16; Status DC Cefazolin Sodium/ Dextrose (Ancef 2 Gm Premix) 50 ml @ As Directed STK-MED ONCE .ROUTE ; Start 09/04/16 at 19:27; Stop 09/04/16 at 19:28; Status DC Cefazolin Sodium (Ancef Inj) 4,000 mg STK-MED ONCE .ROUTE ; Start 09/04/16 at 19 :27; Stop 09/04/16 at 19:28; Status DC Lidocaine HCl (Xylocaine 1% Inj (50 ml)) 50 ml STK-MED ONCE .ROUTE ; Start 09/04 at 19:27; Stop 09/04/16 at 19:28; Status DC Fentanyl Citrate (fentaNYL INJ) 250 mcg STK-MED ONCE .ROUTE ; Start 09/04/16 at 22:23; Stop 09/04/16 at 22:24; Status DC Miscellaneous Information ALL NURSING DEPARTME... UNSCH PRN XX SEE LABEL COMMENTS; Start 09/04/16 at 22:00; Stop 09/05/16 at 21:59; Status DC Morphine Sulfate (*morphine INJ PERIprocedure ONLY) 8 mg STK-MED ONCE .ROUTE Last administered on 09/04/16 23:10; Start 09/04/16 at 23:06; Stop 09/04/16 at 23:07; Status DC Etomidate (Amidate Inj) 20 mg STK-MED ONCE IV PUSH ; Start 09/04/16 at 10:25; Stop 09/05/16 at 10:26; Status DC Phenylephrine HCl (Neosynephrine/ NS 1000 Mcg/10ml Syr) 1,000 mcg STK-MED ONCE IV ; Start 09/04/16 at 10:25; Stop 09/05/16 at 10:26; Status DC Ondansetron HCl 4 mg 4 mg STK-MED ONCE IV PUSH ; Start 09/04/16 at 10:25; Stop 09/05/16 at 10:26; Status DC Parenteral Electrolytes 2,000 ml @ As Directed STK-MED ONCE IV ; Start at 10:25; Stop 09/05/16 at 10:26; Status DC Sodium Chloride (NS 500 ml Inj) 500 ml @ 500 mls/hr BOLUS ONCE IV Last administered on 09/05/16 13:56; Start 09/05/16 at 14:00; Stop 09/05/16 at 14:59 ; Status DC Heparin Sodium (Porcine) (Heparin Inj) 2,000 units ONCE ONCE IV Last administered on 09/07/16 08:40; Start 09/07/16 at 08:00; Stop 09/07/16 at 08:01 ; Status DC Heparin Sodium (Porcine) (Heparin Inj) 5,000 units UNSCH PRN IV APTT LESS THAN 25; Start 09/07/16 at 13:45 Heparin Sodium (Porcine) 2500 units 2,500 units UNSCH PRN IV APTT 25 TO 39; Start 09/07/16 at 13:45 Heparin Sodium/ Dextrose (Heparin-D5W Inj) 250 ml @ 0 mls/hr TITRATE IV Last administered on 09/18/16 08:23; Start 09/07/16 at 07:45 Warfarin Sodium (Coumadin) 2 mg MoWeFr@16 PO Last administered on 09/17/16 14: 53; Start 09/07/16 at 16:00 Warfarin Sodium (Coumadin) 1 mg SuTuThSa@16 PO Last administered on 09/16/16 16 :28; Start 09/08/16 at 16:00 Albuterol/ Ipratropium 1 ampule 1 ampule Q6HR NEB NEB Last administered on 09/17 03:10; Start 09/10/16 at 06:15; Stop 09/17/16 at 10:00; Status DC Cefepime HCl 2000 mg/Sodium Chloride 100 ml @ 200 mls/hr Q8H IV Last administered on 09/18/16 09:27; Start 09/10/16 at 08:00 Vancomycin HCl 1000 mg/Sodium Chloride 250 ml @ 250 mls/hr ONCE ONCE IV Last administered on 09/10/16 06:42; Start 09/10/16 at 06:30; Stop 09/10/16 at 07:29 ; Status DC Pharmacy Profile Note 0 ml @ 0 mls/hr UNSCH OTHER ; Start 09/10/16 at 06:30; Stop 09/13/16 at 12:43; Status DC Vancomycin HCl/ Sodium Chloride (Vancomycin Inj/ NS 250 ml Inj) 250 ml @ 250 mls/hr Q24H IV Last administered on 09/13/16 05:25; Start 09/11/16 at 06:00; Stop 09/13/16 at 09:34; Status DC Miscellaneous Information SPECIFIC LAB TO BE EFRAIN... ONCE ONCE XX Last administered on 09/13/16 05:25; Start 09/13/16 at 05:45; Stop 09/13/16 at 05:46; Status DC Magnesium Citrate 300 ml 300 ml ONCE ONCE PO Last administered on 09/12/16 12: 52; Start 09/12/16 at 12:15; Stop 09/12/16 at 12:16; Status DC Vancomycin HCl/ Sodium Chloride (Vancomycin Inj/ NS 250 ml Inj) 250 ml @ 250 mls/hr Q18H IV ; Start 09/14/16 at 00:00; Stop 09/14/16 at 00:00; Status DC Miscellaneous Information SPECIFIC LAB TO BE DRAWN:VANCOMYCIN TROUGH DATE TO... ONCE ONCE XX ; Start 09/16/16 at 05:45; Stop 09/16/16 at 05:46; Status Cancel A/P Assessment and Plan A/P 1. Right chest wall hematoma: S/P irrigation and drainage of the hematoma, Appreciate general surgery input- signed off 09/13/16. 2. Coumadin toxicity: Resolved. s/p 4 units of FFP . Patient is on Coumadin chronically for mechanical aortic valve. 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 4. Seizure disorder: Stable and Continue Keppra. 5. Thoracic aortic aneurysm: Appreciate cardiothoracic surgery recommendations. Continue medical management. No surgical intervention due to advanced age, high risk. 6. History of diastolic congestive heart failure: Currently asymptomatic. 7. Acute renal failure: Resolved s/p IV fluid hydration 8. DVT prophylaxis: Heparin drip with Coumadin 9. Anemia secondary to acute blood loss: transfused of 2 units PRBCs. Monitor H&H 10. HACP: dc Cefepime- will swaitch to po levaquin. . Incentive spirometer by the bedside 11. Acute respiratory failure: Resolved and wean oxygen NC and currently on 3 L , encourage incentive spirometer use and continue treatment for pneumonia and DuoNeb when necessary Discharge Planning dc planning to SNF when INR is therapeutic. Ananya Cervantes MD Sep 18, 2016 10:52
[2016-09-18 11:06] LABS: APTT (PATIENT) 51.2 SEC (24.3-30.1)
[2016-09-18] MEDS: ACETAMINOPHEN/HYDROcodone 325 MG/7.5 MG TAB PO PRN ×2 (13:18→20:32)
[2016-09-18] MEDS: WARFARIN SOD 1 MG TAB PO SCH (16:46)
[2016-09-18] MEDS: MIRTAZAPINE 15 MG TAB PO SCH (20:31)
[2016-09-18] MEDS: GABAPENTIN 300 MG CAP PO SCH (20:32)
[2016-09-19] VITALS (7 sets, daily range): BP systolic 100–132; BP diastolic 52–65; PULSE 63–79; RESP 17–22; TEMP 96–98.6; O2SAT 94–98
[2016-09-19] MEDS: CEFEPIME INJ 2,000 MG in SODIUM CHLORIDE 0.9% INJ 100 ML IV SCH (01:04)
[2016-09-19 06:17] LABS: MEAN CELL VOLUME 91.3 FL (80.0-100.0); MEAN CORPUSCULAR HEMOGLOBIN 29.8 PG (27.0-34.0); MEAN CORPUSCULAR HGB CONC 32.6 % (32.0-36.0); PLATELET COUNT 270 TH/MM3 (150-450); RED CELL DISTRIBUTION WIDTH 15.6 % (11.6-17.2); REVIEW FLAG FINAL; WHITE BLOOD COUNT 4.2 TH/MM3 (4.0-11.0)
[2016-09-19 06:23] LABS: APTT (PATIENT) 64.8 SEC (24.3-30.1); INTERNATIONAL NORMALIZED RATIO 1.3 RATIO
[2016-09-19] MEDS: CEFUROXIME AXETIL 500 MG TAB PO SCH ×2 (07:52→22:15)
[2016-09-19] MEDS: levETIRAcetam 500 MG TAB PO SCH ×2 (07:52→22:15)
[2016-09-19] MEDS: HEPARIN-D5W INJ 250 ML IV SCH (08:02)
[2016-09-19] MEDS ORDERED: LEVOFLOXACIN 500 MG TAB PO SCH (09:00)
--- NOTE | 2016-09-19 10:23 | HHI.PR ---
Subjective Remarks resting comfortably with no distress. no sob. pain is controlled. no new complaints. Objective Vitals Vital Signs Date Time Temp Pulse Resp B/P Pulse Ox O2 Delivery O2 Flow Rate FiO2 09/19/16 08:00 98.0 70 20 113/56 97 09/19/16 08:00 96.8 68 17 102/52 96 09/19/16 04:00 96.0 63 22 116/55 98 09/19/16 00:00 96.8 66 22 107/57 97 09/18/16 20:26 93 Nasal Cannula 2.00 Humidified 09/18/16 20:15 75 09/18/16 20:00 96.9 72 24 121/88 93 09/18/16 16:00 96.5 72 18 105/56 94 09/18/16 12:00 98.2 68 17 104/67 94 I/O 09/18/16 09/18/16 09/18/16 09/19/16 09/19/16 09/19/16 07:00 15:00 23:00 07:00 15:00 23:00 Intake Total 413 ml 537 ml 183 ml Output Total 650 ml Balance 413 ml 537 ml 183 ml -650 ml Intake Oral 240 ml 360 ml 120 ml IV Total 100 ml 177 ml Other 73 ml 63 ml Output Urine Total 650 ml # Voids 1 4 1 # Bowel Movements 0 1 0 0 Result Diagram: 09/19/16 0510 09/16/16 0531 Imaging Last Impressions Chest X-Ray 09/16/16 0000 Signed Impressions: Service Date/Time: Friday, September 16, 2016 10:00 - CONCLUSION: Improved aeration in the left lower lobe with some mild residual airspace opacity present representing either atelectasis or airspace consolidation. No other acute finding is identified. Ganga Patel MD Consultation 09/04/16 1435 Signed Impressions: Service Date/Time: Sunday, September 04, 2016 14:35 - CONCLUSION: The complex right chest wall hematoma appears to be deep to the pectoralis major muscle. We could attempt drainage if needed clinically. Typically with a hematoma of this age and complex appearance we are usually unsuccessful at draining a significant portion of the hematoma. However, this could be attempted if needed clinically. Findings were discussed with Dr. [place]. Ganga Patel MD Radius/Ulna X-Ray 09/03/16 1103 Signed Impressions: Service Date/Time: Saturday, September 03, 2016 11:28 - CONCLUSION: No acute bony injury Cirilo Christensen MD Humerus X-Ray 09/03/16 1103 Signed Impressions: Service Date/Time: Saturday, September 03, 2016 11:25 - CONCLUSION: Unremarkable examination of the right humerus. Cirilo Christensen MD Chest CT 09/03/16 1103 Signed Impressions: Service Date/Time: Saturday, September 03, 2016 12:39 - CONCLUSION: Large right breast/chest wall mass may simply be large hematoma, however underlying neoplastic process should additionally be considered and either close clinical and mammographic followup or additional short-term evaluation with pre-and postcontrast MRI may be beneficial. 5.7 cm aneurysm of the ascending thoracic aorta. Ganga Michael MD Objective Remarks GENERAL: This is a well-nourished, well-developed patient, in no apparent distress. CARDIOVASCULAR: Regular rate and regular rhythm without murmurs, gallops, or rubs. RESPIRATORY: Clear to auscultation. Breath sounds equal bilaterally. No wheezes , rales, or rhonchi. GASTROINTESTINAL: Abdomen soft, non-tender, nondistended. Normal, active bowel sounds MUSCULOSKELETAL: Extremities without clubbing, cyanosis, or edema. NEURO: Alert & Oriented x4 to person, place, time, situation. Moves all ext x4 skin; ecchymosis on the right breast/ chest wall Procedures Right chest wall hematoma evacuation Medications and IVs Current Medications Phytonadione 10 mg 10 mg ONCE ONCE SQ Last administered on 09/03/16 13:23; Start 09/03/16 at 12:15; Stop 09/03/16 at 12:16; Status DC Sodium Chloride (NS 1000 ml Inj) 1,000 ml @ 70 mls/hr [id number] IV Last administered on 09/03/16 13:24; Start 09/03/16 at 12:30; Stop 09/03/16 at 14:34 ; Status DC Gabapentin (Neurontin) 300 mg HS PO Last administered on 09/18/16 20:32; Start 09/03/16 at 21:00 Levetriacetam (Keppra) 500 mg BID PO Last administered on 09/19/16 07:52; Start 09/03/16 at 21:00 Meclizine HCl (Antivert) 25 mg TID PRN PO DIZZINESS; Start 09/03/16 at 14:30 Mirtazapine (Remeron) 7.5 mg HS PO Last administered on 09/18/16 20:31; Start 09/03/16 at 21:00 Acetaminophen (Tylenol) 650 mg Q4H PRN PO TEMP > 100.4 Last administered on 09/17 09:45; Start 09/03/16 at 14:30 Ondansetron HCl (Zofran Inj) 4 mg Q6H PRN IVP NAUSEA OR VOMITING; Start at 14:30 Magnesium Hydroxide (Milk Of Magnesia Liq) 30 ml Q12H PRN PO CONSTIPATION; Start 09/03/16 at 14:30 Acetaminophen (Tylenol) 650 mg Q6H PRN PO PAIN SCALE 1 TO 2 Last administered on 09/08/16 13:04; Start 09/03/16 at 14:30 Acetaminophen/ Hydrocodone Bitart ([place] 5-325 Mg) 1 tab Q4H PRN PO PAIN SCALE 3 TO 5 Last administered on 09/16/16 18:34; Start 09/03/16 at 14:30 Acetaminophen/ Hydrocodone Bitart ([place] 7.5-325 Mg) 1 tab Q4H PRN PO PAIN SCALE 6 TO 10 Last administered on 09/18/16 20:32; Start 09/03/16 at 14:30 Naloxone HCl 0.4 mg 0.4 mg UNSCH PRN IV SEE LABEL COMMENTS; Start 09/03/16 at 14:30 Potassium Chloride/Sodium Chloride (NS + KCl 20 Meq Inj) 1,000 ml @ 75 mls/hr [id number] IV Last administered on 09/05/16 12:54; Start 09/03/16 at 16:00; Stop 09/06/16 at 13:32; Status DC Albuterol/ Ipratropium (Duoneb Neb) 1 ampule QID NEB NEB Last administered on 09/07/16 15:48; Start 09/03/16 at 16:00; Stop 09/07/16 at 16:00; Status DC Albuterol Sulfate (Albuterol Neb) 2.5 mg Q2HR NEB PRN NEB DYSPNEA Last administered on 09/10/16 04:27; Start 09/03/16 at 14:45 Furosemide (Lasix Inj) 20 mg ONCE PRN IV PUSH give between each prbc Last administered on 09/04/16 03:23; Start 09/03/16 at 21:15; Stop 09/04/16 at 04:00 ; Status DC Morphine Sulfate (Morphine Inj) 1 mg Q3H PRN IV PUSH BREAKTHROUGH PAIN Last administered on 09/06/16 15:58; Start 09/04/16 at 15:15 Furosemide 20 mg 20 mg ONCE ONCE IV PUSH ; Start 09/04/16 at 16:15; Stop at 16:16; Status DC Cefazolin Sodium/ Dextrose (Ancef 2 Gm Premix) 50 ml @ As Directed STK-MED ONCE .ROUTE ; Start 09/04/16 at 19:27; Stop 09/04/16 at 19:28; Status DC Cefazolin Sodium (Ancef Inj) 4,000 mg STK-MED ONCE .ROUTE ; Start 09/04/16 at 19 :27; Stop 09/04/16 at 19:28; Status DC Lidocaine HCl (Xylocaine 1% Inj (50 ml)) 50 ml STK-MED ONCE .ROUTE ; Start 09/04 at 19:27; Stop 09/04/16 at 19:28; Status DC Fentanyl Citrate (fentaNYL INJ) 250 mcg STK-MED ONCE .ROUTE ; Start 09/04/16 at 22:23; Stop 09/04/16 at 22:24; Status DC Miscellaneous Information ALL NURSING DEPARTME... UNSCH PRN XX SEE LABEL COMMENTS; Start 09/04/16 at 22:00; Stop 09/05/16 at 21:59; Status DC Morphine Sulfate (*morphine INJ PERIprocedure ONLY) 8 mg STK-MED ONCE .ROUTE Last administered on 09/04/16 23:10; Start 09/04/16 at 23:06; Stop 09/04/16 at 23:07; Status DC Etomidate (Amidate Inj) 20 mg STK-MED ONCE IV PUSH ; Start 09/04/16 at 10:25; Stop 09/05/16 at 10:26; Status DC Phenylephrine HCl (Neosynephrine/ NS 1000 Mcg/10ml Syr) 1,000 mcg STK-MED ONCE IV ; Start 09/04/16 at 10:25; Stop 09/05/16 at 10:26; Status DC Ondansetron HCl 4 mg 4 mg STK-MED ONCE IV PUSH ; Start 09/04/16 at 10:25; Stop 09/05/16 at 10:26; Status DC Parenteral Electrolytes 2,000 ml @ As Directed STK-MED ONCE IV ; Start at 10:25; Stop 09/05/16 at 10:26; Status DC Sodium Chloride (NS 500 ml Inj) 500 ml @ 500 mls/hr BOLUS ONCE IV Last administered on 09/05/16 13:56; Start 09/05/16 at 14:00; Stop 09/05/16 at 14:59 ; Status DC Heparin Sodium (Porcine) (Heparin Inj) 2,000 units ONCE ONCE IV Last administered on 09/07/16 08:40; Start 09/07/16 at 08:00; Stop 09/07/16 at 08:01 ; Status DC Heparin Sodium (Porcine) (Heparin Inj) 5,000 units UNSCH PRN IV APTT LESS THAN 25; Start 09/07/16 at 13:45 Heparin Sodium (Porcine) 2500 units 2,500 units UNSCH PRN IV APTT 25 TO 39; Start 09/07/16 at 13:45 Heparin Sodium/ Dextrose (Heparin-D5W Inj) 250 ml @ 0 mls/hr TITRATE IV Last administered on 09/19/16 08:02; Start 09/07/16 at 07:45 Warfarin Sodium (Coumadin) 2 mg MoWeFr@16 PO Last administered on 09/17/16 14: 53; Start 09/07/16 at 16:00 Warfarin Sodium (Coumadin) 1 mg SuTuThSa@16 PO Last administered on 09/18/16 16 :46; Start 09/08/16 at 16:00 Albuterol/ Ipratropium 1 ampule 1 ampule Q6HR NEB NEB Last administered on 09/17 03:10; Start 09/10/16 at 06:15; Stop 09/17/16 at 10:00; Status DC Cefepime HCl 2000 mg/Sodium Chloride 100 ml @ 200 mls/hr Q8H IV Last administered on 09/19/16 01:04; Start 09/10/16 at 08:00; Stop 09/19/16 at 07:00; Status DC Vancomycin HCl 1000 mg/Sodium Chloride 250 ml @ 250 mls/hr ONCE ONCE IV Last administered on 09/10/16 06:42; Start 09/10/16 at 06:30; Stop 09/10/16 at 07:29 ; Status DC Pharmacy Profile Note 0 ml @ 0 mls/hr UNSCH OTHER ; Start 09/10/16 at 06:30; Stop 09/13/16 at 12:43; Status DC Vancomycin HCl/ Sodium Chloride (Vancomycin Inj/ NS 250 ml Inj) 250 ml @ 250 mls/hr Q24H IV Last administered on 09/13/16 05:25; Start 09/11/16 at 06:00; Stop 09/13/16 at 09:34; Status DC Miscellaneous Information SPECIFIC LAB TO BE EFRAIN... ONCE ONCE XX Last administered on 09/13/16 05:25; Start 09/13/16 at 05:45; Stop 09/13/16 at 05:46; Status DC Magnesium Citrate 300 ml 300 ml ONCE ONCE PO Last administered on 09/12/16 12: 52; Start 09/12/16 at 12:15; Stop 09/12/16 at 12:16; Status DC Vancomycin HCl/ Sodium Chloride (Vancomycin Inj/ NS 250 ml Inj) 250 ml @ 250 mls/hr Q18H IV ; Start 09/14/16 at 00:00; Stop 09/14/16 at 00:00; Status DC Miscellaneous Information SPECIFIC LAB TO BE DRAWN:VANCOMYCIN TROUGH DATE TO... ONCE ONCE XX ; Start 09/16/16 at 05:45; Stop 09/16/16 at 05:46; Status Cancel Levofloxacin (Levaquin) 500 mg DAILY PO ; Start 09/19/16 at 09:00; Stop 09/19/16 at 09:00; Status DC Cefuroxime Axetil (Ceftin) 500 mg Q12HR PO Last administered on 09/19/16 07:52 ; Start 09/19/16 at 09:00 A/P Assessment and Plan A/P 1. Right chest wall hematoma: S/P irrigation and drainage of the hematoma, Appreciate general surgery input- signed off 09/13/16. 2. Coumadin toxicity: Resolved. s/p 4 units of FFP . Patient is on Coumadin chronically for mechanical aortic valve. 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 will increase coumadin to 4 mg daily- monitor INR- DC heparin when INR>1.9. 4. Seizure disorder: Stable and Continue Keppra. 5. Thoracic aortic aneurysm: Appreciate cardiothoracic surgery recommendations. Continue medical management. No surgical intervention due to advanced age, high risk. 6. History of diastolic congestive heart failure: Currently asymptomatic. 7. Acute renal failure: Resolved s/p IV fluid hydration 8. DVT prophylaxis: Heparin drip with Coumadin 9. Anemia secondary to acute blood loss: transfused of 2 units PRBCs. Monitor H&H 10. 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 Incentive spirometer by the bedside 11. Acute respiratory failure: Resolved and wean oxygen NC and currently on 3 L , encourage incentive spirometer use and continue treatment for pneumonia and DuoNeb when necessary Discharge Planning dc planning to SNF when INR is therapeutic. Ananya Cervantes MD Sep 19, 2016 10:23
[2016-09-19] MEDS: WARFARIN SOD 4 MG TAB PO SCH (15:23)
[2016-09-19] MEDS: ACETAMINOPHEN/HYDROcodone 325 MG/7.5 MG TAB PO PRN ×2 (15:23→22:15)
[2016-09-19] MEDS: GABAPENTIN 300 MG CAP PO SCH (22:15)
[2016-09-19] MEDS: MIRTAZAPINE 15 MG TAB PO SCH (22:15)
[2016-09-20] VITALS: BP 124/62; PULSE 62; RESP 17; TEMP 96.8; O2SAT 97
[2016-09-20 04:00] VITALS: BP 128/73; PULSE 81; RESP 19; TEMP 97.2; O2SAT 96
[2016-09-20 05:59] LABS: APTT (PATIENT) 79.1 SEC (24.3-30.1); INTERNATIONAL NORMALIZED RATIO 1.5 RATIO
[2016-09-20 08:00] VITALS: BP 111/64; PULSE 67; PULSE 68; RESP 16; TEMP 97.5; O2SAT 96
[2016-09-20] MEDS: levETIRAcetam 500 MG TAB PO SCH ×2 (09:16→20:54)
[2016-09-20] MEDS: CEFUROXIME AXETIL 500 MG TAB PO SCH ×2 (09:16→20:54)
--- NOTE | 2016-09-20 11:25 | HHI.PR ---
Subjective Remarks in no acute distress. has occasional cough. has mild pain to right lateral chest. Objective Vitals Vital Signs Date Time Temp Pulse Resp B/P Pulse Ox O2 Delivery O2 Flow Rate FiO2 09/20/16 08:00 67 09/20/16 08:00 97.5 68 16 111/64 96 09/20/16 04:00 97.2 81 19 128/73 96 09/20/16 00:00 96.8 62 17 124/62 97 09/19/16 20:00 97.0 68 19 132/63 96 09/19/16 19:00 70 09/19/16 19:00 Nasal Cannula 2.00 09/19/16 16:00 77 17 105/65 95 09/19/16 12:00 98.6 79 22 100/54 94 I/O 09/19/16 09/19/16 09/19/16 09/20/16 09/20/16 09/20/16 07:00 15:00 23:00 07:00 15:00 23:00 Intake Total 273 ml 240 ml 140 ml Output Total 650 ml 400 ml 600 ml 350 ml Balance -650 ml -127 ml -360 ml -210 ml Intake Oral 120 ml 240 ml 140 ml IV Total 153 ml Output Urine Total 650 ml 400 ml 600 ml 350 ml # Bowel Movements 0 0 Result Diagram: 09/19/16 0510 09/16/16 0531 Imaging Last Impressions Chest X-Ray 09/16/16 0000 Signed Impressions: Service Date/Time: Friday, September 16, 2016 10:00 - CONCLUSION: Improved aeration in the left lower lobe with some mild residual airspace opacity present representing either atelectasis or airspace consolidation. No other acute finding is identified. Ganga Patel MD Consultation 09/04/16 3091 Signed Impressions: Service Date/Time: Sunday, September 04, 2016 14:35 - CONCLUSION: The complex right chest wall hematoma appears to be deep to the pectoralis major muscle. We could attempt drainage if needed clinically. Typically with a hematoma of this age and complex appearance we are usually unsuccessful at draining a significant portion of the hematoma. However, this could be attempted if needed clinically. Findings were discussed with Dr. [place]. Ganga Patel MD Radius/Ulna X-Ray 09/03/16 1103 Signed Impressions: Service Date/Time: Saturday, September 03, 2016 11:28 - CONCLUSION: No acute bony injury Cirilo Christensen MD Humerus X-Ray 09/03/16 1103 Signed Impressions: Service Date/Time: Saturday, September 03, 2016 11:25 - CONCLUSION: Unremarkable examination of the right humerus. Cirilo Christensen MD Chest CT 09/03/16 1103 Signed Impressions: Service Date/Time: Saturday, September 03, 2016 12:39 - CONCLUSION: Large right breast/chest wall mass may simply be large hematoma, however underlying neoplastic process should additionally be considered and either close clinical and mammographic followup or additional short-term evaluation with pre-and postcontrast MRI may be beneficial. 5.7 cm aneurysm of the ascending thoracic aorta. Ganga Michael MD Objective Remarks GENERAL: This is a well-nourished, well-developed patient, in no apparent distress. CARDIOVASCULAR: Regular rate and regular rhythm without murmurs, gallops, or rubs. RESPIRATORY: Clear to auscultation. Breath sounds equal bilaterally. No wheezes , rales, or rhonchi. GASTROINTESTINAL: Abdomen soft, non-tender, nondistended. Normal, active bowel sounds MUSCULOSKELETAL: Extremities without clubbing, cyanosis, or edema. NEURO: Alert & Oriented x4 to person, place, time, situation. Moves all ext x4 skin; ecchymosis on the right breast/ chest wall Procedures Right chest wall hematoma evacuation Medications and IVs Current Medications Phytonadione 10 mg 10 mg ONCE ONCE SQ Last administered on 09/03/16 13:23; Start 09/03/16 at 12:15; Stop 09/03/16 at 12:16; Status DC Sodium Chloride (NS 1000 ml Inj) 1,000 ml @ 70 mls/hr [id number] IV Last administered on 09/03/16 13:24; Start 09/03/16 at 12:30; Stop 09/03/16 at 14:34 ; Status DC Gabapentin (Neurontin) 300 mg HS PO Last administered on 09/19/16 22:15; Start 09/03/16 at 21:00 Levetriacetam (Keppra) 500 mg BID PO Last administered on 09/20/16 09:16; Start 09/03/16 at 21:00 Meclizine HCl (Antivert) 25 mg TID PRN PO DIZZINESS; Start 09/03/16 at 14:30 Mirtazapine (Remeron) 7.5 mg HS PO Last administered on 09/19/16 22:15; Start 09/03/16 at 21:00 Acetaminophen (Tylenol) 650 mg Q4H PRN PO TEMP > 100.4 Last administered on 09/17 09:45; Start 09/03/16 at 14:30 Ondansetron HCl (Zofran Inj) 4 mg Q6H PRN IVP NAUSEA OR VOMITING; Start at 14:30 Magnesium Hydroxide (Milk Of Magnclark Liq) 30 ml Q12H PRN PO CONSTIPATION; Start 09/03/16 at 14:30 Acetaminophen (Tylenol) 650 mg Q6H PRN PO PAIN SCALE 1 TO 2 Last administered on 09/08/16 13:04; Start 09/03/16 at 14:30 Acetaminophen/ Hydrocodone Bitart ([place] 5-325 Mg) 1 tab Q4H PRN PO PAIN SCALE 3 TO 5 Last administered on 09/16/16 18:34; Start 09/03/16 at 14:30 Acetaminophen/ Hydrocodone Bitart ([place] 7.5-325 Mg) 1 tab Q4H PRN PO PAIN SCALE 6 TO 10 Last administered on 09/19/16 22:15; Start 09/03/16 at 14:30 Naloxone HCl 0.4 mg 0.4 mg UNSCH PRN IV SEE LABEL COMMENTS; Start 09/03/16 at 14:30 Potassium Chloride/Sodium Chloride (NS + KCl 20 Meq Inj) 1,000 ml @ 75 mls/hr [id number] IV Last administered on 09/05/16 12:54; Start 09/03/16 at 16:00; Stop 09/06/16 at 13:32; Status DC Albuterol/ Ipratropium (Duoneb Neb) 1 ampule QID NEB NEB Last administered on 09/07/16 15:48; Start 09/03/16 at 16:00; Stop 09/07/16 at 16:00; Status DC Albuterol Sulfate (Albuterol Neb) 2.5 mg Q2HR NEB PRN NEB DYSPNEA Last administered on 09/10/16 04:27; Start 09/03/16 at 14:45 Furosemide (Lasix Inj) 20 mg ONCE PRN IV PUSH give between each prbc Last administered on 09/04/16 03:23; Start 09/03/16 at 21:15; Stop 09/04/16 at 04:00 ; Status DC Morphine Sulfate (Morphine Inj) 1 mg Q3H PRN IV PUSH BREAKTHROUGH PAIN Last administered on 09/06/16 15:58; Start 09/04/16 at 15:15 Furosemide 20 mg 20 mg ONCE ONCE IV PUSH ; Start 09/04/16 at 16:15; Stop at 16:16; Status DC Cefazolin Sodium/ Dextrose (Ancef 2 Gm Premix) 50 ml @ As Directed STK-MED ONCE .ROUTE ; Start 09/04/16 at 19:27; Stop 09/04/16 at 19:28; Status DC Cefazolin Sodium (Ancef Inj) 4,000 mg STK-MED ONCE .ROUTE ; Start 09/04/16 at 19 :27; Stop 09/04/16 at 19:28; Status DC Lidocaine HCl (Xylocaine 1% Inj (50 ml)) 50 ml STK-MED ONCE .ROUTE ; Start 09/04 at 19:27; Stop 09/04/16 at 19:28; Status DC Fentanyl Citrate (fentaNYL INJ) 250 mcg STK-MED ONCE .ROUTE ; Start 09/04/16 at 22:23; Stop 09/04/16 at 22:24; Status DC Miscellaneous Information ALL NURSING DEPARTME... UNSCH PRN XX SEE LABEL COMMENTS; Start 09/04/16 at 22:00; Stop 09/05/16 at 21:59; Status DC Morphine Sulfate (*morphine INJ PERIprocedure ONLY) 8 mg STK-MED ONCE .ROUTE Last administered on 09/04/16 23:10; Start 09/04/16 at 23:06; Stop 09/04/16 at 23:07; Status DC Etomidate (Amidate Inj) 20 mg STK-MED ONCE IV PUSH ; Start 09/04/16 at 10:25; Stop 09/05/16 at 10:26; Status DC Phenylephrine HCl (Neosynephrine/ NS 1000 Mcg/10ml Syr) 1,000 mcg STK-MED ONCE IV ; Start 09/04/16 at 10:25; Stop 09/05/16 at 10:26; Status DC Ondansetron HCl 4 mg 4 mg STK-MED ONCE IV PUSH ; Start 09/04/16 at 10:25; Stop 09/05/16 at 10:26; Status DC Parenteral Electrolytes 2,000 ml @ As Directed STK-MED ONCE IV ; Start at 10:25; Stop 09/05/16 at 10:26; Status DC Sodium Chloride (NS 500 ml Inj) 500 ml @ 500 mls/hr BOLUS ONCE IV Last administered on 09/05/16 13:56; Start 09/05/16 at 14:00; Stop 09/05/16 at 14:59 ; Status DC Heparin Sodium (Porcine) (Heparin Inj) 2,000 units ONCE ONCE IV Last administered on 09/07/16 08:40; Start 09/07/16 at 08:00; Stop 09/07/16 at 08:01 ; Status DC Heparin Sodium (Porcine) (Heparin Inj) 5,000 units UNSCH PRN IV APTT LESS THAN 25; Start 09/07/16 at 13:45 Heparin Sodium (Porcine) 2500 units 2,500 units UNSCH PRN IV APTT 25 TO 39; Start 09/07/16 at 13:45 Heparin Sodium/ Dextrose (Heparin-D5W Inj) 250 ml @ 0 mls/hr TITRATE IV Last administered on 09/19/16 08:02; Start 09/07/16 at 07:45 Warfarin Sodium (Coumadin) 2 mg MoWeFr@16 PO Last administered on 09/17/16 14: 53; Start 09/07/16 at 16:00; Stop 09/19/16 at 10:22; Status DC Warfarin Sodium (Coumadin) 1 mg SuTuThSa@16 PO Last administered on 09/18/16 16 :46; Start 09/08/16 at 16:00; Stop 09/19/16 at 10:22; Status DC Albuterol/ Ipratropium 1 ampule 1 ampule Q6HR NEB NEB Last administered on 09/17 03:10; Start 09/10/16 at 06:15; Stop 09/17/16 at 10:00; Status DC Cefepime HCl 2000 mg/Sodium Chloride 100 ml @ 200 mls/hr Q8H IV Last administered on 09/19/16 01:04; Start 09/10/16 at 08:00; Stop 09/19/16 at 07:00; Status DC Vancomycin HCl 1000 mg/Sodium Chloride 250 ml @ 250 mls/hr ONCE ONCE IV Last administered on 09/10/16 06:42; Start 09/10/16 at 06:30; Stop 09/10/16 at 07:29 ; Status DC Pharmacy Profile Note 0 ml @ 0 mls/hr UNSCH OTHER ; Start 09/10/16 at 06:30; Stop 09/13/16 at 12:43; Status DC Vancomycin HCl/ Sodium Chloride (Vancomycin Inj/ NS 250 ml Inj) 250 ml @ 250 mls/hr Q24H IV Last administered on 09/13/16 05:25; Start 09/11/16 at 06:00; Stop 09/13/16 at 09:34; Status DC Miscellaneous Information SPECIFIC LAB TO BE EFRAIN... ONCE ONCE XX Last administered on 09/13/16 05:25; Start 09/13/16 at 05:45; Stop 09/13/16 at 05:46; Status DC Magnesium Citrate 300 ml 300 ml ONCE ONCE PO Last administered on 09/12/16 12: 52; Start 09/12/16 at 12:15; Stop 09/12/16 at 12:16; Status DC Vancomycin HCl/ Sodium Chloride (Vancomycin Inj/ NS 250 ml Inj) 250 ml @ 250 mls/hr Q18H IV ; Start 09/14/16 at 00:00; Stop 09/14/16 at 00:00; Status DC Miscellaneous Information SPECIFIC LAB TO BE DRAWN:VANCOMYCIN TROUGH DATE TO... ONCE ONCE XX ; Start 09/16/16 at 05:45; Stop 09/16/16 at 05:46; Status Cancel Levofloxacin (Levaquin) 500 mg DAILY PO ; Start 09/19/16 at 09:00; Stop 09/19/16 at 09:00; Status DC Cefuroxime Axetil (Ceftin) 500 mg Q12HR PO Last administered on 09/20/16 09:16 ; Start 09/19/16 at 09:00 Warfarin Sodium (Coumadin) 4 mg DAILY@16 PO Last administered on 09/19/16 15:23 ; Start 09/19/16 at 16:00 Patient Medication Teaching (Coumadin Booklet) 1 ONCE ONCE XX Last administered on 09/19/16t 12:54; Start 09/19/16 at 13:00; Stop 09/19/16 at 13:01; Status DC A/P Assessment and Plan A/P 1. Right chest wall hematoma: S/P irrigation and drainage of the hematoma, Appreciate general surgery input- signed off 09/13/16. 2. Coumadin toxicity: Resolved. s/p 4 units of FFP . Patient is on Coumadin chronically for mechanical aortic valve. 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 continue coumadin ; 4 mg daily- monitor INR- DC heparin when INR>1.9. 4. Seizure disorder: Stable and Continue Keppra. 5. Thoracic aortic aneurysm: Appreciate cardiothoracic surgery recommendations. Continue medical management. No surgical intervention due to advanced age, high risk. 6. History of diastolic congestive heart failure: Currently asymptomatic. 7. Acute renal failure: Resolved s/p IV fluid hydration 8. DVT prophylaxis: Heparin drip with Coumadin 9. Anemia secondary to acute blood loss: transfused of 2 units PRBCs. Monitor H&H 10. 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 Incentive spirometer by the bedside 11. Acute respiratory failure: Resolved and wean oxygen NC and currently on 3 L , encourage incentive spirometer use and continue treatment for pneumonia and DuoNeb when necessary Discharge Planning dc planning to SNF when INR is therapeutic; possible over the weekend. Ananya Cervantes MD Sep 20, 2016 11:25
[2016-09-20 11:30] LABS: APTT (PATIENT) 59.4 SEC (24.3-30.1)
[2016-09-20 12:00] VITALS: BP 101/51; PULSE 80; RESP 16; TEMP 96.8; O2SAT 95
[2016-09-20] MEDS: ACETAMINOPHEN 325 MG TAB PO PRN (13:26)
[2016-09-20] MEDS: HEPARIN-D5W INJ 250 ML IV SCH (13:28)
[2016-09-20 16:00] VITALS: BP 108/64; PULSE 76; RESP 17; TEMP 97.4; O2SAT 96
[2016-09-20] MEDS: WARFARIN SOD 4 MG TAB PO SCH (16:09)
[2016-09-20 18:02] LABS: APTT (PATIENT) 45.1 SEC (24.3-30.1)
[2016-09-20 20:00] VITALS: BP 145/65; PULSE 75; RESP 17; TEMP 97.6; O2SAT 96
[2016-09-20] MEDS: GABAPENTIN 300 MG CAP PO SCH (20:55)
[2016-09-20] MEDS: MIRTAZAPINE 15 MG TAB PO SCH (20:56)
[2016-09-20] MEDS: ACETAMINOPHEN/HYDROcodone 325 MG/7.5 MG TAB PO PRN (20:56)
[2016-09-21] VITALS: BP 127/62; PULSE 69; RESP 17; TEMP 97.1; O2SAT 96
[2016-09-21 00:36] LABS: APTT (PATIENT) 54.4 SEC (24.3-30.1)
[2016-09-21 04:00] VITALS: BP 119/58; PULSE 69; RESP 17; TEMP 97.8; O2SAT 96
[2016-09-21 05:47] LABS: APTT (PATIENT) 52.6 SEC (24.3-30.1); INTERNATIONAL NORMALIZED RATIO 2.2 RATIO; PROTHROMBIN TIME - PATIENT 25.2 SEC (9.8-11.6)
[2016-09-21 08:00] VITALS: BP 117/62; PULSE 76; PULSE 84; RESP 16; TEMP 98.2; O2SAT 96
[2016-09-21] MEDS: CEFUROXIME AXETIL 500 MG TAB PO SCH (08:11)
[2016-09-21] MEDS: levETIRAcetam 500 MG TAB PO SCH (08:12)
--- NOTE | 2016-09-21 09:27 | HHI.PR ---
Subjective Remarks resting comfortably with no distress. no new complaints. d/w the RN and no acute issues over night. wants to be discharged today. Objective Vitals Vital Signs Date Time Temp Pulse Resp B/P Pulse Ox O2 Delivery O2 Flow Rate FiO2 09/21/16 08:00 98.2 84 16 117/62 96 09/21/16 04:00 97.8 69 17 119/58 96 09/21/16 00:00 97.1 69 17 127/62 96 09/20/16 20:00 97.6 75 17 145/65 96 09/20/16 20:00 Room Air 09/20/16 16:00 97.4 76 17 108/64 96 09/20/16 12:00 95 Room Air 09/20/16 12:00 96.8 80 16 101/51 95 I/O 09/20/16 09/20/16 09/20/16 09/21/16 09/21/16 09/21/16 07:00 15:00 23:00 07:00 15:00 23:00 Intake Total 140 ml 320 ml 240 ml 240 ml Output Total 350 ml 500 ml 400 ml Balance -210 ml -180 ml -160 ml 240 ml Intake Oral 140 ml 120 ml 240 ml 240 ml IV Total 200 ml Output Urine Total 350 ml 500 ml 400 ml # Voids 2 # Bowel Movements 1 Result Diagram: 09/19/16 0510 Imaging Last Impressions Chest X-Ray 09/16/16 0000 Signed Impressions: Service Date/Time: Friday, September 16, 2016 10:00 - CONCLUSION: Improved aeration in the left lower lobe with some mild residual airspace opacity present representing either atelectasis or airspace consolidation. No other acute finding is identified. Ganga Patel MD Consultation 09/04/16 [id number] Signed Impressions: Service Date/Time: Sunday, September 04, 2016 14:35 - CONCLUSION: The complex right chest wall hematoma appears to be deep to the pectoralis major muscle. We could attempt drainage if needed clinically. Typically with a hematoma of this age and complex appearance we are usually unsuccessful at draining a significant portion of the hematoma. However, this could be attempted if needed clinically. Findings were discussed with Dr. [place]. Ganga Patel MD Radius/Ulna X-Ray 09/03/16 1103 Signed Impressions: Service Date/Time: Saturday, September 03, 2016 11:28 - CONCLUSION: No acute bony injury Cirilo Christensen MD Humerus X-Ray 09/03/16 1103 Signed Impressions: Service Date/Time: Saturday, September 03, 2016 11:25 - CONCLUSION: Unremarkable examination of the right humerus. Cirilo Christensen MD Chest CT 09/03/16 1103 Signed Impressions: Service Date/Time: Saturday, September 03, 2016 12:39 - CONCLUSION: Large right breast/chest wall mass may simply be large hematoma, however underlying neoplastic process should additionally be considered and either close clinical and mammographic followup or additional short-term evaluation with pre-and postcontrast MRI may be beneficial. 5.7 cm aneurysm of the ascending thoracic aorta. Ganga Michael MD Objective Remarks GENERAL: This is a well-nourished, well-developed patient, in no apparent distress. CARDIOVASCULAR: Regular rate and regular rhythm without murmurs, gallops, or rubs. RESPIRATORY: Clear to auscultation. Breath sounds equal bilaterally. No wheezes , rales, or rhonchi. GASTROINTESTINAL: Abdomen soft, non-tender, nondistended. Normal, active bowel sounds MUSCULOSKELETAL: Extremities without clubbing, cyanosis, or edema. NEURO: Alert & Oriented x4 to person, place, time, situation. Moves all ext x4 skin; ecchymosis on the right breast/ chest wall Procedures Right chest wall hematoma evacuation Medications and IVs Current Medications Phytonadione 10 mg 10 mg ONCE ONCE SQ Last administered on 09/03/16 13:23; Start 09/03/16 at 12:15; Stop 09/03/16 at 12:16; Status DC Sodium Chloride (NS 1000 ml Inj) 1,000 ml @ 70 mls/hr [id number] IV Last administered on 09/03/16 13:24; Start 09/03/16 at 12:30; Stop 09/03/16 at 14:34 ; Status DC Gabapentin (Neurontin) 300 mg HS PO Last administered on 09/20/16 20:55; Start 09/03/16 at 21:00 Levetriacetam (Keppra) 500 mg BID PO Last administered on 09/21/16 08:12; Start 09/03/16 at 21:00 Meclizine HCl (Antivert) 25 mg TID PRN PO DIZZINESS; Start 09/03/16 at 14:30 Mirtazapine (Remeron) 7.5 mg HS PO Last administered on 09/20/16 20:56; Start 09/03/16 at 21:00 Acetaminophen (Tylenol) 650 mg Q4H PRN PO TEMP > 100.4 Last administered on 09/17 09:45; Start 09/03/16 at 14:30 Ondansetron HCl (Zofran Inj) 4 mg Q6H PRN IVP NAUSEA OR VOMITING; Start at 14:30 Magnesium Hydroxide (Milk Of Magnesia Liq) 30 ml Q12H PRN PO CONSTIPATION; Start 09/03/16 at 14:30 Acetaminophen (Tylenol) 650 mg Q6H PRN PO PAIN SCALE 1 TO 2 Last administered on 09/20/16 13:26; Start 09/03/16 at 14:30 Acetaminophen/ Hydrocodone Bitart ([place] 5-325 Mg) 1 tab Q4H PRN PO PAIN SCALE 3 TO 5 Last administered on 09/16/16 18:34; Start 09/03/16 at 14:30 Acetaminophen/ Hydrocodone Bitart ([place] 7.5-325 Mg) 1 tab Q4H PRN PO PAIN SCALE 6 TO 10 Last administered on 09/20/16 20:56; Start 09/03/16 at 14:30 Naloxone HCl 0.4 mg 0.4 mg UNSCH PRN IV SEE LABEL COMMENTS; Start 09/03/16 at 14:30 Potassium Chloride/Sodium Chloride (NS + KCl 20 Meq Inj) 1,000 ml @ 75 mls/hr [id number] IV Last administered on 09/05/16 12:54; Start 09/03/16 at 16:00; Stop 09/06/16 at 13:32; Status DC Albuterol/ Ipratropium (Duoneb Neb) 1 ampule QID NEB NEB Last administered on 09/07/16 15:48; Start 09/03/16 at 16:00; Stop 09/07/16 at 16:00; Status DC Albuterol Sulfate (Albuterol Neb) 2.5 mg Q2HR NEB PRN NEB DYSPNEA Last administered on 09/10/16 04:27; Start 09/03/16 at 14:45 Furosemide (Lasix Inj) 20 mg ONCE PRN IV PUSH give between each prbc Last administered on 09/04/16 03:23; Start 09/03/16 at 21:15; Stop 09/04/16 at 04:00 ; Status DC Morphine Sulfate (Morphine Inj) 1 mg Q3H PRN IV PUSH BREAKTHROUGH PAIN Last administered on 09/06/16 15:58; Start 09/04/16 at 15:15 Furosemide 20 mg 20 mg ONCE ONCE IV PUSH ; Start 09/04/16 at 16:15; Stop at 16:16; Status DC Cefazolin Sodium/ Dextrose (Ancef 2 Gm Premix) 50 ml @ As Directed STK-MED ONCE .ROUTE ; Start 09/04/16 at 19:27; Stop 09/04/16 at 19:28; Status DC Cefazolin Sodium (Ancef Inj) 4,000 mg STK-MED ONCE .ROUTE ; Start 09/04/16 at 19 :27; Stop 09/04/16 at 19:28; Status DC Lidocaine HCl (Xylocaine 1% Inj (50 ml)) 50 ml STK-MED ONCE .ROUTE ; Start 09/04 at 19:27; Stop 09/04/16 at 19:28; Status DC Fentanyl Citrate (fentaNYL INJ) 250 mcg STK-MED ONCE .ROUTE ; Start 09/04/16 at 22:23; Stop 09/04/16 at 22:24; Status DC Miscellaneous Information ALL NURSING DEPARTME... UNSCH PRN XX SEE LABEL COMMENTS; Start 09/04/16 at 22:00; Stop 09/05/16 at 21:59; Status DC Morphine Sulfate (*morphine INJ PERIprocedure ONLY) 8 mg STK-MED ONCE .ROUTE Last administered on 09/04/16 23:10; Start 09/04/16 at 23:06; Stop 09/04/16 at 23:07; Status DC Etomidate (Amidate Inj) 20 mg STK-MED ONCE IV PUSH ; Start 09/04/16 at 10:25; Stop 09/05/16 at 10:26; Status DC Phenylephrine HCl (Neosynephrine/ NS 1000 Mcg/10ml Syr) 1,000 mcg STK-MED ONCE IV ; Start 09/04/16 at 10:25; Stop 09/05/16 at 10:26; Status DC Ondansetron HCl 4 mg 4 mg STK-MED ONCE IV PUSH ; Start 09/04/16 at 10:25; Stop 09/05/16 at 10:26; Status DC Parenteral Electrolytes 2,000 ml @ As Directed STK-MED ONCE IV ; Start at 10:25; Stop 09/05/16 at 10:26; Status DC Sodium Chloride (NS 500 ml Inj) 500 ml @ 500 mls/hr BOLUS ONCE IV Last administered on 09/05/16 13:56; Start 09/05/16 at 14:00; Stop 09/05/16 at 14:59 ; Status DC Heparin Sodium (Porcine) (Heparin Inj) 2,000 units ONCE ONCE IV Last administered on 09/07/16 08:40; Start 09/07/16 at 08:00; Stop 09/07/16 at 08:01 ; Status DC Heparin Sodium (Porcine) (Heparin Inj) 5,000 units UNSCH PRN IV APTT LESS THAN 25; Start 09/07/16 at 13:45 Heparin Sodium (Porcine) 2500 units 2,500 units UNSCH PRN IV APTT 25 TO 39; Start 09/07/16 at 13:45 Heparin Sodium/ Dextrose (Heparin-D5W Inj) 250 ml @ 0 mls/hr TITRATE IV Last administered on 09/20/16 13:28; Start 09/07/16 at 07:45 Warfarin Sodium (Coumadin) 2 mg MoWeFr@16 PO Last administered on 09/17/16 14: 53; Start 09/07/16 at 16:00; Stop 09/19/16 at 10:22; Status DC Warfarin Sodium (Coumadin) 1 mg SuTuThSa@16 PO Last administered on 09/18/16 16 :46; Start 09/08/16 at 16:00; Stop 09/19/16 at 10:22; Status DC Albuterol/ Ipratropium 1 ampule 1 ampule Q6HR NEB NEB Last administered on 09/17 03:10; Start 09/10/16 at 06:15; Stop 09/17/16 at 10:00; Status DC Cefepime HCl 2000 mg/Sodium Chloride 100 ml @ 200 mls/hr Q8H IV Last administered on 09/19/16 01:04; Start 09/10/16 at 08:00; Stop 09/19/16 at 07:00; Status DC Vancomycin HCl 1000 mg/Sodium Chloride 250 ml @ 250 mls/hr ONCE ONCE IV Last administered on 09/10/16 06:42; Start 09/10/16 at 06:30; Stop 09/10/16 at 07:29 ; Status DC Pharmacy Profile Note 0 ml @ 0 mls/hr UNSCH OTHER ; Start 09/10/16 at 06:30; Stop 09/13/16 at 12:43; Status DC Vancomycin HCl/ Sodium Chloride (Vancomycin Inj/ NS 250 ml Inj) 250 ml @ 250 mls/hr Q24H IV Last administered on 09/13/16 05:25; Start 09/11/16 at 06:00; Stop 09/13/16 at 09:34; Status DC Miscellaneous Information SPECIFIC LAB TO BE EFRAIN... ONCE ONCE XX Last administered on 09/13/16 05:25; Start 09/13/16 at 05:45; Stop 09/13/16 at 05:46; Status DC Magnesium Citrate 300 ml 300 ml ONCE ONCE PO Last administered on 09/12/16 12: 52; Start 09/12/16 at 12:15; Stop 09/12/16 at 12:16; Status DC Vancomycin HCl/ Sodium Chloride (Vancomycin Inj/ NS 250 ml Inj) 250 ml @ 250 mls/hr Q18H IV ; Start 09/14/16 at 00:00; Stop 09/14/16 at 00:00; Status DC Miscellaneous Information SPECIFIC LAB TO BE DRAWN:VANCOMYCIN TROUGH DATE TO... ONCE ONCE XX ; Start 09/16/16 at 05:45; Stop 09/16/16 at 05:46; Status Cancel Levofloxacin (Levaquin) 500 mg DAILY PO ; Start 09/19/16 at 09:00; Stop 09/19/16 at 09:00; Status DC Cefuroxime Axetil (Ceftin) 500 mg Q12HR PO Last administered on 09/21/16 08:11 ; Start 09/19/16 at 09:00 Warfarin Sodium (Coumadin) 4 mg DAILY@16 PO Last administered on 09/20/16 16:09 ; Start 09/19/16 at 16:00 Patient Medication Teaching (Coumadin Booklet) 1 ONCE ONCE XX Last administered on 09/19/16t 12:54; Start 09/19/16 at 13:00; Stop 09/19/16 at 13:01; Status DC A/P Assessment and Plan A/P 1. Right chest wall hematoma: S/P irrigation and drainage of the hematoma, Appreciate general surgery input- signed off 09/13/16. 2. Coumadin toxicity: Resolved. s/p 4 units of FFP . Patient is on Coumadin chronically for mechanical aortic valve. will stop heparin drip today. 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 continue coumadin-INR is now therapeutic- will dc heparin drip. 4. Seizure disorder: Stable and Continue Keppra. 5. Thoracic aortic aneurysm: Appreciate cardiothoracic surgery recommendations. Continue medical management. No surgical intervention due to advanced age, high risk. 6. History of diastolic congestive heart failure: Currently asymptomatic. 7. Acute renal failure: Resolved s/p IV fluid hydration 8. DVT prophylaxis:on coumadin. 9. Anemia secondary to acute blood loss: transfused of 2 units PRBCs. H/H stable- 10. 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 11. Acute respiratory failure: Resolved and wean oxygen NC and currently on 3 L , encourage incentive spirometer use and continue treatment for pneumonia and DuoNeb when necessary Discharge Planning dc to SNF today. see med list. PT/INR monitoring as outpatient. f/u; pcp and cardiology. d/w the patient and RN. time spent 35 min. Ananya Cervantes MD Sep 21, 2016 09:27
[2016-09-21] MEDS ORDERED: HYDR-3516 PO (09:30)
[2016-09-21] MEDS ORDERED: ALBU0.08 NEB (09:30)
--- NOTE | 2016-09-21 09:31 | HHI.DCPOC ---
Discharge Care Plan Diagnosis: (1) Supratherapeutic INR Your Health Problems Are: Bleeding Tendency Goals to Promote Your Health * To prevent worsening of your condition and complications * To maintain your health at the optimal level Directions to Meet Your Goals Take your medications as prescribed Follow your dietary instruction Follow activity as directed Keep your appointments as scheduled Take your immunizations and boosters as scheduled If your symptoms worsen call your PCP, if no PCP go to Urgent Care Center or Emergency Room Smoking is Dangerous to Your Health. Avoid second hand smoke Call the 24-hour hour crisis hotline for domestic abuse at Ananya Cervantes MD Sep 21, 2016 09:31
--- NOTE | 2016-09-21 09:32 | HHI.DS ---
Discharge Summary Admission Date Sep 03, 2016 at 13:56 Discharge Date: Sep 21, 2016 Admitting Diagnosis Coumadin toxicity. Chest wall hematoma. Renal sufficiency. (1) Supratherapeutic INR ICD Code: R79.1 Diagnosis: Principal (2) Coumadin toxicity ICD Code: T45.511A Diagnosis: Principal (3) History of mechanical aortic valve replacement ICD Code: Z95.2 Diagnosis: Principal (4) Chest wall hematoma ICD Code: S20.219A Diagnosis: Principal (5) Contusion of right arm ICD Code: S40.021A Diagnosis: Principal (6) Acute renal failure ICD Code: N17.9 Diagnosis: Principal (7) Anemia due to acute blood loss ICD Code: D62 Diagnosis: Principal (8) HCAP (healthcare-associated pneumonia) ICD Code: J18.9 Diagnosis: Principal (9) Acute respiratory failure with hypoxemia ICD Code: J96.01 Diagnosis: Principal Procedures Right chest wall hematoma evacuation Brief History - From Admission The patient is an 85-year-old female who states that she fell at home 2-3 weeks ago. She has developed significant bruising and swelling of the right chest wall. This area is tender to palpation. She has been on antibiotics for the last few days for an upper respiratory infection. She denies fever, chills, night sweats. Has had cough that is productive. Denies dyspnea. She has not noted any bleeding. CBC/BMP: 09/19/16 0510 Significant Findings Laboratory Tests Test 09/18/16 09/19/16 09/20/16 09/20/16 10:46 05:10 05:39 11:13 Activated Partial 51.2 SEC 64.8 SEC 79.1 SEC 59.4 SEC Thromboplast Time (24.3-30.1) (24.3-30.1) (24.3-30.1) (24.3-30.1) Red Blood Count 3.50 MIL/MM3 (4.00-5.30) Hemoglobin 10.4 GM/DL (11.6-15.3) Hematocrit 32.0 % (35.0-46.0) Prothrombin Time 15.0 SEC 17.0 SEC (9.8-11.6) (9.8-11.6) Test 09/20/16 09/21/16 09/21/16 17:05 00:04 05:04 Activated Partial 45.1 SEC 54.4 SEC 52.6 SEC Thromboplast Time (24.3-30.1) (24.3-30.1) (24.3-30.1) Prothrombin Time 25.2 SEC (9.8-11.6) Imaging Last Impressions Chest X-Ray 09/16/16 0000 Signed Impressions: Service Date/Time: Friday, September 16, 2016 10:00 - CONCLUSION: Improved aeration in the left lower lobe with some mild residual airspace opacity present representing either atelectasis or airspace consolidation. No other acute finding is identified. Ganga Patel MD Consultation 09/04/16 1435 Signed Impressions: Service Date/Time: Sunday, September 04, 2016 14:35 - CONCLUSION: The complex right chest wall hematoma appears to be deep to the pectoralis major muscle. We could attempt drainage if needed clinically. Typically with a hematoma of this age and complex appearance we are usually unsuccessful at draining a significant portion of the hematoma. However, this could be attempted if needed clinically. Findings were discussed with Dr. [place]. Ganga Patel MD Radius/Ulna X-Ray 09/03/16 1103 Signed Impressions: Service Date/Time: Saturday, September 03, 2016 11:28 - CONCLUSION: No acute bony injury Cirilo Christensen MD Humerus X-Ray 09/03/16 1103 Signed Impressions: Service Date/Time: Saturday, September 03, 2016 11:25 - CONCLUSION: Unremarkable examination of the right humerus. Cirilo Christensen MD Chest CT 09/03/16 1103 Signed Impressions: Service Date/Time: Saturday, September 03, 2016 12:39 - CONCLUSION: Large right breast/chest wall mass may simply be large hematoma, however underlying neoplastic process should additionally be considered and either close clinical and mammographic followup or additional short-term evaluation with pre-and postcontrast MRI may be beneficial. 5.7 cm aneurysm of the ascending thoracic aorta. Ganga Michael MD PE at Discharge GENERAL: This is a well-nourished, well-developed patient, in no apparent distress. CARDIOVASCULAR: Regular rate and regular rhythm without murmurs, gallops, or rubs. RESPIRATORY: Clear to auscultation. Breath sounds equal bilaterally. No wheezes , rales, or rhonchi. GASTROINTESTINAL: Abdomen soft, non-tender, nondistended. Normal, active bowel sounds MUSCULOSKELETAL: Extremities without clubbing, cyanosis, or edema. NEURO: Alert & Oriented x4 to person, place, time, situation. Moves all ext x4 skin; ecchymosis on the right breast/ chest wall Hospital Course 1. Right chest wall hematoma: S/P irrigation and drainage of the hematoma, Appreciate general surgery input- signed off 09/13/16. 2. Coumadin toxicity: Resolved. s/p 4 units of FFP . Patient is on Coumadin chronically for mechanical aortic valve. will stop heparin drip today. 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 continue coumadin-INR is now therapeutic- will dc heparin drip. 4. Seizure disorder: Stable and Continue Keppra. 5. Thoracic aortic aneurysm: Appreciate cardiothoracic surgery recommendations. Continue medical management. No surgical intervention due to advanced age, high risk. 6. History of diastolic congestive heart failure: Currently asymptomatic. 7. Acute renal failure: Resolved s/p IV fluid hydration 8. DVT prophylaxis:on coumadin. 9. Anemia secondary to acute blood loss: transfused of 2 units PRBCs. H/H stable- 10. 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 11. Acute respiratory failure: Resolved and wean oxygen NC and currently on 3 L , encourage incentive spirometer use and continue treatment for pneumonia and DuoNeb when necessary Pt Condition on Discharge: Fair Discharge Disposition: Discharge to SNF Discharge Time: > 30 minutes Discharge Instructions DIET: Follow Instructions for: Heart Healthy Diet Activities you can perform: Regular-No Restrictions Follow up Referrals: Cardiology PCP Follow-up New Orders: PT/INR - Next Day New Medications: Albuterol Neb (Albuterol Neb) 2.5 Mg/3 Ml Neb 2.5 MG NEB Q4HR PRN DYSPNEA Days 10 Ref 0 NEBULE Cefuroxime (Ceftin) 500 Mg Tab 500 MG PO Q12HR infection Days 3 Ref 0 TAB Hydrocodone-Acetaminophen (Hydrocodone-Acetaminophen) 5-325 mg Tab 1 TAB PO Q4H PRN pain #20 Ref 0 TAB Continued Medications: Gabapentin (Gabapentin) 300 Mg Cap 300 MG PO HS #30 Ref 0 CAP Levetiracetam (Keppra) 500 Mg Tab 500 MG PO BID Control Seizures #60 Ref 0 TAB Meclizine HCl (Meclizine 25) 25 Mg Tab 25 MG PO TID PRN DIZZINESS Mirtazapine (Mirtazapine) 7.5 Mg Tab 7.5 MG PO HS Depression Control #30 Ref 0 TAB (This prescription has been renewed) Warfarin (Coumadin) 2 Mg Tab 2 MG PO DAILY@1600 Prevent Blood Clot #30 Ref 0 TAB Discontinued Medications: Cefdinir (Cefdinir) 300 Mg Cap 300 MG PO Q12HR Infection Ref 0 CAP Ananya Cervantes MD Sep 21, 2016 09:32
[2016-09-21] MEDS ORDERED: MIRT1TAB PO (09:38)
[2016-09-21] MEDS ORDERED: CEFT500T3 PO (09:43)
[2016-09-21] MEDS: ACETAMINOPHEN 325 MG TAB PO PRN (09:54)
[2016-09-21 12:00] VITALS: BP 103/66; PULSE 74; RESP 17; TEMP 98.2; O2SAT 94
--- NOTE | 2016-09-24 08:20 | PQ ---
Physician Query Response Document PATIENT: NOLVIA CRANE : [id number] ADMIT DATE: 09/03/2016 1:56 PM DISCH DATE: 09/21/2016 3:47 PM RESPONDING PROVIDER #: Pérez QUERY TEXT: Conflicting Documentation Clarification A single mention or documentation of multiple diagnoses for the same clinical presentation appears in the record. Please clarify the diagnosis/diagnoses. Please also document if the condition is: -- Confirmed and current -- Confirmed, treated and resolved -- Ruled out -- Other, please specify The patient's Clinical Indicators include: Progress note from Dr. Cassidy included the diagnosis of Coagulopathy and Failure to thrive. Query created by: Peggy Meng on 09/14/2016 9:40 AM RESPONSE TEXT: Provider disagreed with this CDI query. coumadin toxicity and coagulability ----same Electronically signed by: Arthur Akbar MD 09/24/2016 8:16 AM
== END 2016-09-21 15:47 | DRG 604 ==
LOC: NEPC 10:36 → NEDA 13:56 → NEPHCDU 17:34 → N03B 09-04 20:27 → N07A 09-07 01:01
PROVIDERS: ADMIT Internal Medicine; ATTEND Internal Medicine
PROC: 30233N1 Transfusion of Nonautologous Red Blood Cells into Peripheral Vein, Percutaneous Approach (ICD-10-PCS; 2016-09-03)
PROC: 30233L1 Transfusion of Nonautologous Fresh Plasma into Peripheral Vein, Percutaneous Approach (ICD-10-PCS; 2016-09-04)
PROC: 30233K1 Transfusion of Nonautologous Frozen Plasma into Peripheral Vein, Percutaneous Approach (ICD-10-PCS; 2016-09-04)
PROC: 0W9800Z Drainage of Chest Wall with Drainage Device, Open Approach (ICD-10-PCS; principal; 2016-09-04 20:30)
DX: S20.211A Contusion of right front wall of thorax, initial encounter (principal); J96.01 Acute respiratory failure with hypoxia; N17.9 Acute kidney failure, unspecified; J18.9 Pneumonia, unspecified organism; I71.2 Thoracic aortic aneurysm, without rupture; I50.32 Chronic diastolic (congestive) heart failure; D62 Acute posthemorrhagic anemia; G40.909 Epilepsy, unspecified, not intractable, without status epilepticus; I35.0 Nonrheumatic aortic (valve) stenosis; R62.7 Adult failure to thrive; T45.511A Poisoning by anticoagulants, accidental (unintentional), initial encounter; S40.021A Contusion of right upper arm, initial encounter; J06.9 Acute upper respiratory infection, unspecified; M19.90 Unspecified osteoarthritis, unspecified site; E78.5 Hyperlipidemia, unspecified; I25.10 Atherosclerotic heart disease of native coronary artery without angina pectoris; R29.6 Repeated falls; Y95 Nosocomial condition; Z95.2 Presence of prosthetic heart valve; Z86.73 Personal history of transient ischemic attack (TIA), and cerebral infarction without residual deficits; Z79.01 Long term (current) use of anticoagulants; W08.XXXA Fall from other furniture, initial encounter; Y92.009 Unspecified place in unspecified non-institutional (private) residence as the place of occurrence of the external cause
CPT/HCPCS: 36430; 36600; 71010; 71250; 73060; 73090; 80048; 80053; 80202; 81001; 82565; 82805; 83605; 83880; 85007; 85014; 85018; 85025; 85027; 85610; 85730; 86850; 86900; 86901; 86920; 86927; 87640; 87641; 93005; 93306; 94150; 94640; 94664; 96360; 96372; G8987-GP; G8988-GP; J0690; J0692; J1644; J1940; J2270; J2370; J2405; J3010; J3370; J3430; J3480; J7030; J7040; J7050; J7613; P9016; P9017; P9612

== ENCOUNTER 2016-10-24 20:02 | Inpatient (IN) | payer OTHER, MEDICARE ==
[~2016-10-24] VITALS: Ht 170.2 cm; Wt 57.9 kg
[~2016-10-24 20:02] MED LIST changes: +ALBU0.08 NEB; -ATOR20TA42 PO; -BISA10R PR; +CEFT500T3 PO; +COUM2TAB PO; +GABA300C5 PO; +HYDR-3516 PO; -LEVA750T PO; -MECL-62 PO; +MECL1TAB42 PO; +MIRT1TAB PO; -MIRTA15 PO; -WARF2 PO; -Z.0.OXYGENDME NC; -Z.0.WALKERFRONT
[2016-10-24 20:06] VITALS: BP 125/74; PULSE 108; RESP 16; TEMP 99.9; O2SAT 91
[2016-10-24 20:28] VITALS: BP 143/68; PULSE 102; RESP 18; O2SAT 91
[2016-10-24] MEDS ORDERED: SODIUM CHLOR 0.9% 1000 ML INJ 1,000 ML IV ONE (20:34)
[2016-10-24] MEDS ORDERED: GABA300C5 PO (20:45)
[2016-10-24] MEDS ORDERED: WARF4TAB52 PO (20:45)
--- NOTE | 2016-10-24 20:46 | PD ---
HPI Chief Complaint: Fever Time Seen by Provider: 20:30 Travel History International Travel<30 days: No Contact w/Intl Traveler<30days: No Traveled to known affect area: No History of Present Illness HPI 85-year-old female with history of CAD, hyperlipidemia, artificial heart valve on Coumadin, brought in by her [id number] for evaluation of fever, cough, generalized weakness, generalized malaise. Symptoms have been going on for last 3 days without any improvement. The patient has had little to eat or drink over the last 3 days. She denies chest pain or dyspnea. No abdominal pain. No head neck or back pain. Cough is productive of greenish sputum. No hemoptysis. PFSH Past Medical History Hx Anticoagulant Therapy: Yes (WARFARIN) Arthritis: Yes Asthma: No Autoimmune Disease: No Blood Disorders: No Anxiety: No Depression: No Heart Rhythm Problems: No Cancer: No Cardiac Catheterization: Yes Cardiovascular Problems: Yes (HEART VALVE REPLACEMENT) High Cholesterol: No Chemotherapy: No Chest Pain: No Congestive Heart Failure: No COPD: No Cerebrovascular Accident: Yes (TIA) Dementia: Yes Diabetes: No Diminished Hearing: No Endocrine: No Gastrointestinal Disorders: No GERD: No Glaucoma: No Genitourinary: No Headaches: Yes (OCCASIONALY) Hepatitis: No Hiatal Hernia: No Hypertension: No Immune Disorder: No Implanted Vascular Access Dvce: No Kidney Stones: No Musculoskeletal: Yes Neurologic: Yes Psychiatric: No Reproductive: No Respiratory: Yes Migraines: No Myocardial Infarction: No Radiation Therapy: No Renal Failure: No Seizures: No Sickle Cell Disease: No Sleep Apnea: No Thyroid Disease: No Ulcer: No ?: Menopausal: Yes : 1 Para: 1 Past Surgical History Abdominal Surgery: No AICD: No Appendectomy: Yes Arteriovenous Shunt: No Cardiac Surgery: Yes (valve replaced) Cholecystectomy: No Ear Surgery: No Endocrine Surgery: No Eye Surgery: No Genitourinary Surgery: No Gynecologic Surgery: No Insulin Pump: No Joint Replacement: No Oral Surgery: No Pacemaker: No Thoracic Surgery: No Valve Replacement: Yes Other Surgery: Yes Social History Alcohol Use: No Tobacco Use: No Substance Use: No Allergies-Medications (Allergen,Severity, Reaction): Coded Allergies: No Known Allergies (Verified , 01/02/16) Reported Meds & Prescriptions Reported Meds & Active Scripts Active Mirtazapine 7.5 Mg Tab 7.5 Mg PO HS Albuterol Neb (Albuterol Sulfate) 2.5 Mg/3 Ml Neb 2.5 Mg NEB Q4HR PRN 10 Days Reported Warfarin 1 Mg Tab 1 Mg PO MON, WED, FRI Gabapentin 300 Mg Cap 300 Mg PO BID Keppra (Levetiracetam) 500 Mg Tab 500 Mg PO BID Coumadin (Warfarin) 2 Mg Tab 2 Mg PO DAILY@1600 Review of Systems Except as stated in HPI: all other systems reviewed are Neg Physical Exam Narrative GENERAL: Well-developed, frail, elderly appearing female, no acute distress SKIN: Focused skin assessment warm/dry. No rash. HEAD: Atraumatic. Normocephalic. EYES: Pupils equal and round. No scleral icterus. No injection or drainage. ENT: Mucous membranes pink and moist. NECK: Trachea midline. No JVD. CARDIOVASCULAR: Tachycardic, rate 105, regular. RESPIRATORY: No accessory muscle use. Clear to auscultation. Breath sounds equal bilaterally. GASTROINTESTINAL: Abdomen soft, non-tender, nondistended. MUSCULOSKELETAL: No obvious deformities. No clubbing. No cyanosis. No edema. NEUROLOGICAL: Awake and alert. No obvious cranial nerve deficits. Motor grossly within normal limits. Normal speech. PSYCHIATRIC: Appropriate mood and affect; insight and judgment normal. Data Data Last Documented VS Vital Signs Date Time Temp Pulse Resp B/P Pulse Ox O2 Delivery O2 Flow Rate FiO2 10/24/16 20:37 98 Nasal Cannula 2 10/24/16 20:28 102 18 143/68 10/24/16 20:06 99.9 Orders Electrocardiogram (10/24/16 20:34) Complete Blood Count With Diff (10/24/16 20:34) Comprehensive Metabolic Panel (10/24/16 20:34) Prothrombin Time / Inr (Pt) (10/24/16 20:34) Act Partial Throm Time (Ptt) (10/24/16 20:34) Lactic Acid Sepsis Protocol (10/24/16 20:34) Urinalysis - C+S If Indicated (10/24/16 20:34) Influenzae A/B Antigen (10/24/16 20:34) Blood Culture (10/24/16 20:34) Chest, Single Ap (10/24/16 20:34) Ecg Monitoring (10/24/16 20:34) Iv Access Insert/Monitor (10/24/16 20:34) Oximetry (10/24/16 20:34) Oxygen Administration (10/24/16 20:34) Sodium Chlor 0.9% 1000 Ml Inj (Ns 1000 M (10/24/16 20:34) Cath For Specimen (10/24/16 20:34) B-Type Natriuretic Peptide (10/24/16 20:38) Acetaminophen (Tylenol) (10/24/16 21:15) Ceftriaxone Inj (Rocephin Inj) (10/24/16 21:30) Azithromycin Inj (Zithromax Inj) (10/24/16 21:30) Urine Culture (10/24/16 21:10) Ondansetron Inj (Zofran Inj) (10/24/16 21:45) Labs Laboratory Tests Test 10/24/16 10/24/16 20:50 21:10 White Blood Count 16.4 TH/MM3 Red Blood Count 4.24 MIL/MM3 Hemoglobin 12.6 GM/DL Hematocrit 37.5 % Mean Corpuscular Volume 88.6 FL Mean Corpuscular Hemoglobin 29.8 PG Mean Corpuscular Hemoglobin 33.6 % Concent Red Cell Distribution Width 14.0 % Platelet Count 342 TH/MM3 Mean Platelet Volume 9.1 FL Neutrophils (%) (Auto) 82.9 % Lymphocytes (%) (Auto) 5.2 % Monocytes (%) (Auto) 11.1 % Eosinophils (%) (Auto) 0.3 % Basophils (%) (Auto) 0.5 % Neutrophils # (Auto) 13.6 TH/MM3 Lymphocytes # (Auto) 0.8 TH/MM3 Monocytes # (Auto) 1.8 TH/MM3 Eosinophils # (Auto) 0.0 TH/MM3 Basophils # (Auto) 0.1 TH/MM3 CBC Comment DIFF FINAL Differential Comment Prothrombin Time 12.6 SEC Prothromb Time International 1.1 RATIO Ratio Activated Partial 33.5 SEC Thromboplast Time Sodium Level 137 MEQ/L Potassium Level 4.1 MEQ/L Chloride Level 100 MEQ/L Carbon Dioxide Level 27.4 MEQ/L Anion Gap 10 MEQ/L Blood Urea Nitrogen 19 MG/DL Creatinine 1.00 MG/DL Estimat Glomerular Filtration 53 ML/MIN Rate Random Glucose 142 MG/DL Lactic Acid Level 1.3 mmol/L Calcium Level 9.0 MG/DL Total Bilirubin 1.0 MG/DL Aspartate Amino Transf 61 U/L (AST/SGOT) Alanine Aminotransferase 46 U/L (ALT/SGPT) Alkaline Phosphatase 215 U/L B-Type Natriuretic Peptide 47 PG/ML Total Protein 8.0 GM/DL Albumin 2.9 GM/DL Urine Color YELLOW Urine Turbidity HAZY Urine pH 5.5 Urine Specific [place] 1.019 Urine Protein 30 mg/dL Urine Glucose (UA) NEG mg/dL Urine Ketones NEG mg/dL Urine Occult Blood MOD Urine Nitrite NEG Urine Bilirubin NEG Urine Urobilinogen 2.0 MG/DL Urine Leukocyte Esterase NEG Urine RBC 12 /hpf Urine WBC 1 /hpf Urine Squamous Epithelial 1 /hpf Cells Urine Bacteria RARE /hpf Urine Mucus FEW /lpf Microscopic Urinalysis Comment CATH-CULTURE IND MDM Medical Decision Making Medical Screen Exam Complete: Yes Emergency Medical Condition: Yes Differential Diagnosis Sepsis, pneumonia, UTI, URI, viral illness, metabolic abnormality, dehydration Narrative Course Initial vital signs show heart rate 108, blood pressure 125/74, pulse ox 91% on room air, oral temp of 99.9 degrees Fahrenheit. CBC is remarkable for WBC 16.4 with 83% neutrophils. CMP is essentially unremarkable. Lactic acid is 1.3. UA shows red bacteria, 12 rbc's, 1 wbc, negative nitrites, negative leukocyte esterase, moderate blood. This was a catheterized specimen. Influenza is negative. Chest x-ray: No acute cardio pulmonary disease demonstrated. The patient was empirically treated for pneumonia with Rocephin and azithromycin given her persistent cough while in the emergency department as well as history of fever and cough. Chest x-ray does not demonstrate an acute cardiopulmonary process, however the patient is hypoxic. She is not wheezing. The patient was made aware of all findings. She is awake and alert, overall sick appearing. She'll be admitted for further treatment and evaluation of sepsis, URI. Case discussed with hospitalist Dr. Capellan who will admit the patient to her service. Diagnosis Primary Impression: Hypoxia Additional Impressions: Cough SIRS (systemic inflammatory response syndrome) Admitting Information Admitting Physician Requests: Observation Portillo Cortez MD Oct 24, 2016 20:46
[2016-10-24 21:14] LABS: AUTOMATED NEUTROPHIL # 13.6 TH/MM3 (1.8-7.7); BASOPHIL # 0.1 TH/MM3 (0-0.2); BASOPHIL % 0.5 % (0.0-2.0); EOSINOPHIL % 0.3 % (0.0-4.0); HEMATOCRIT 37.5 % (35.0-46.0); HEMO FLAGS DIFF FINAL; LYMPH % 5.2 % (9.0-44.0); LYMPHOCYTE # 0.8 TH/MM3 (1.0-4.8); MEAN CELL VOLUME 88.6 FL (80.0-100.0); MEAN CORPUSCULAR HEMOGLOBIN 29.8 PG (27.0-34.0); MEAN CORPUSCULAR HGB CONC 33.6 % (32.0-36.0); MONO % 11.1 % (0.0-8.0); NEUT % 82.9 % (16.0-70.0); PLATELET COUNT 342 TH/MM3 (150-450); RED BLOOD COUNT 4.24 MIL/MM3 (4.00-5.30); WHITE BLOOD COUNT 16.4 TH/MM3 (4.0-11.0)
[2016-10-24] MEDS ORDERED: ACETAMINOPHEN 325 MG TAB PO ONE (21:15)
--- NOTE | 2016-10-24 21:15 | RADRPT ---
EXAM DATE/TIME: 10/24/2016 20:47 [facility] COMPARISON: CHEST SINGLE AP, January 02, 2016, 0:37. CHEST SINGLE AP, September 16, 2016, 10:00. INDICATIONS : Fever, cough for 24 hours MEDICAL HISTORY : Cardiovascular disease. Stroke. SURGICAL HISTORY : CABG. ENCOUNTER: Subsequent ACUITY: 1 week PAIN SCORE: 0/10 LOCATION: Bilateral chest FINDINGS: No infiltrate, effusion or pneumothorax demonstrated. Mild chronic interstitial opacities again seen in the bases. Heart size stable, within normal limits. Patient has had previous median sternotomy. CONCLUSION: No acute cardiopulmonary disease demonstrated. Ganga Reynoso MD on October 24, 2016 at 21:13 Board Certified Radiologist. This report was verified electronically.
[2016-10-24] MEDS ORDERED: AZITHROMYCIN INJ 500 MG in SODIUM CHLOR 0.9% 250 ML INJ 250 ML IV ONE (21:30)
[2016-10-24] MEDS ORDERED: cefTRIAXone INJ 1,000 MG in SODIUM CHLORIDE 0.9% INJ 100 ML IV ONE (21:30)
[2016-10-24 21:31] LABS: APTT (PATIENT) 33.5 SEC (24.3-30.1); INTERNATIONAL NORMALIZED RATIO 1.1 RATIO; PROTHROMBIN TIME - PATIENT 12.6 SEC (9.8-11.6)
[2016-10-24 21:37] LABS: BACTERIA, URINE RARE /hpf; BLOOD, URINE MOD (NEG); COMMENT (UR) CATH-CULTURE IND; CULTURE IF INDICATED CATH CULTURE IND; GLUCOSE,URINE NEG (NEG); KETONE, URINE NEG (NEG); MUCUS URINE FEW /lpf (OCC); NITRITE,URINE NEG (NEG); PH, URINE 5.5 (5.0-8.5); SQUAMOUS EPITHELIAL CELL URINE 1 /hpf (0-5); URINE COLOR YELLOW (YELLW/STRAW)
[2016-10-24] MEDS ORDERED: ONDANSETRON HCL 4 MG/2 ML VIAL IV PUSH ONE (21:45)
[2016-10-24 21:55] LABS: ANION GAP 10 MEQ/L (5-15); AST (GOT) 61 U/L (15-37); BICARBONATE 27.4 MEQ/L (21.0-32.0); BLOOD UREA NITROGEN 19 MG/DL (7-18); CHLORIDE 100 MEQ/L (98-107); GLOMERULAR FILTRATION RATE 53 ML/MIN (>89); POTASSIUM 4.1 MEQ/L (3.5-5.1); SODIUM (NA) 137 MEQ/L (136-145)
[2016-10-24 21:58] LABS: ALKALINE PHOSPHATASE 215 U/L (45-117); ALT (GPT) 46 U/L (10-53)
[2016-10-24] MEDS ORDERED: SODIUM CHLORIDE 0.9% FLUSH 10 ML FLUSH IV FLUSH PRN (23:30)
[2016-10-24] MEDS ORDERED: NALOXONE HCL 0.4 MG/ML AMP IV PRN (23:30)
[2016-10-25] VITALS (8 sets, daily range): BP systolic 113–135; BP diastolic 56–71; PULSE 79–89; RESP 16–20; TEMP 95.6–98.7; O2SAT 88–97
--- NOTE | 2016-10-25 04:02 | HHI.HP ---
[facility]Staff Admission Diagnosis hypoxia, cough, SIRS Diagnoses: Chief Complaint: Fever, cough productive of green phlegm, generalized weakness, malaise poor appetite 3 days Travel History International Travel<30 Days: No Contact w/Intl Traveler <30 Da: No Traveled to Known Affected Are: No Sepsis Criteria SIRS Criteria (2 or more): Heart rate over 90, WBC > 67599, < 4000 or > 10% bands History of Present Illness This is an 85-year-old female with history of aortic mechanical valve replacement on Coumadin- INR today 1.1, TIA, osteoarthritis, diastolic congestive heart failure, hyperlipidemia, seizure disorder and CAD. Patient was brought in by brought in by her [id number] for evaluation of fever, cough productive of greenish sputum x 3 days. Patient also has associated generalized weakness, generalized malaise, poor appetite and poor PO intake. Symptoms have been going on for last 3 days without any improvement. Patient is a poor history only able to provide limited information therefore information gathered from patient as well as prior charting. Patient denies shortness of breath, chest pain, abdominal pain Of note: Patient is ill appears with frequent productive cough Review of Systems ROS Limitations: Poor Historian Except as stated in HPI: all other systems reviewed are Neg Past Family Social History Past Medical History Osteoarthritis History of TIA Aortic valve replacement (mechanical valve) History of diastolic congestive heart failure Hyperlipidemia Seizure disorder Coronary artery disease Past Surgical History Aortic valve replacement (mechanical valve) Reported Medications Mirtazapine 7.5 Mg Tab 7.5 Mg PO HS Albuterol Neb (Albuterol Sulfate) 2.5 Mg/3 Ml Neb 2.5 Mg NEB Q4HR PRN 10 Days Warfarin 1 Mg Tab 1 Mg PO MON, WED, FRI Gabapentin 300 Mg Cap 300 Mg PO BID Keppra (Levetiracetam) 500 Mg Tab 500 Mg PO BID Coumadin (Warfarin) 2 Mg Tab 2 Mg PO DAILY@1600 Allergies: Coded Allergies: No Known Allergies (Verified , 01/02/16) Active Ordered Medications Current Medications Medications (Trade) Dose Ordered Sig/Deidre Route Start Time Stop Time Status Last Admin (NS Flush) 2 ml UNSCH PRN IV FLUSH 10/24/16 23:30 (NS Flush) 2 ml BID IV FLUSH 10/25/16 09:00 Naloxone HCl 0.4 mg 0.4 mg UNSCH PRN IV 10/24/16 23:30 (Levaquin 750 Mg Premix Inj) 150 ml @ 100 mls/hr Q24H IV 10/25/16 09:00 Family History Patient denies significant family history. Social History Denies alcohol, tobacco, or illicit drug use. Physical Exam Vital Signs Vital Signs Date Time Temp Pulse Resp B/P Pulse Ox O2 Delivery O2 Flow Rate FiO2 10/25/16 02:19 97.6 79 18 118/56 95 10/24/16 20:37 98 Nasal Cannula 2 10/24/16 20:28 102 18 143/68 91 10/24/16 20:06 99.9 108 16 125/74 91 Room Air Physical Exam GENERAL: This is an 85-year-old ill appears female patient with frequent productive cough and swallow respirations SKIN: generalized thinning of skin HEAD: Atraumatic. Normocephalic. No temporal or scalp tenderness. EYES: Extraocular motions intact. No scleral icterus. No injection or drainage. NECK: Trachea midline. elevated JVD or lymphadenopathy. Supple, nontender, no meningeal signs. CARDIOVASCULAR: Regular rate and rhythm without murmurs, gallops, or rubs. RESPIRATORY: diminished bilateral bases GASTROINTESTINAL: Abdomen soft, non-tender, nondistended. No guarding. MUSCULOSKELETAL: Extremities without clubbing, cyanosis, or edema. No joint tenderness, effusion, or edema noted. No calf tenderness. Negative Homans sign bilaterally. NEUROLOGICAL: Awake and alert. poor historian. Motor and sensory grossly within normal limits. 4 out of 5 muscle strength in all muscle groups. Normal speech. Laboratory Laboratory Tests Test 10/24/16 10/24/16 20:50 21:10 White Blood Count 16.4 Red Blood Count 4.24 Hemoglobin 12.6 Hematocrit 37.5 Mean Corpuscular Volume 88.6 Mean Corpuscular Hemoglobin 29.8 Mean Corpuscular Hemoglobin 33.6 Concent Red Cell Distribution Width 14.0 Platelet Count 342 Mean Platelet Volume 9.1 Neutrophils (%) (Auto) 82.9 Lymphocytes (%) (Auto) 5.2 Monocytes (%) (Auto) 11.1 Eosinophils (%) (Auto) 0.3 Basophils (%) (Auto) 0.5 Neutrophils # (Auto) 13.6 Lymphocytes # (Auto) 0.8 Monocytes # (Auto) 1.8 Eosinophils # (Auto) 0.0 Basophils # (Auto) 0.1 CBC Comment DIFF FINAL Differential Comment Prothrombin Time 12.6 Prothromb Time International 1.1 Ratio Activated Partial 33.5 Thromboplast Time Sodium Level 137 Potassium Level 4.1 Chloride Level 100 Carbon Dioxide Level 27.4 Anion Gap 10 Blood Urea Nitrogen 19 Creatinine 1.00 Estimat Glomerular Filtration 53 Rate Random Glucose 142 Lactic Acid Level 1.3 Calcium Level 9.0 Total Bilirubin 1.0 Aspartate Amino Transf 61 (AST/SGOT) Alanine Aminotransferase 46 (ALT/SGPT) Alkaline Phosphatase 215 B-Type Natriuretic Peptide 47 Total Protein 8.0 Albumin 2.9 Urine Color YELLOW Urine Turbidity HAZY Urine pH 5.5 Urine Specific [place] 1.019 Urine Protein 30 Urine Glucose (UA) NEG Urine Ketones NEG Urine Occult Blood MOD Urine Nitrite NEG Urine Bilirubin NEG Urine Urobilinogen 2.0 Urine Leukocyte Esterase NEG Urine RBC 12 Urine WBC 1 Urine Squamous Epithelial 1 Cells Urine Bacteria RARE Urine Mucus FEW Microscopic Urinalysis Comment CATH-CULTURE IND Date/Time Procedure Status Source Growth 10/24/16 21:10 Urine Culture Received Urine Catheterized Urine Pending 10/24/16 21:10 Influenza Types A,B Antigen (ANALILIA) - Final Complete Nasal Washing NEGATIVE FOR FLU A AND B ANTIGEN.... 10/24/16 20:50 Aerobic Blood Culture Received Blood Peripheral Pending 10/24/16 20:50 Anaerobic Blood Culture Received Blood Peripheral Pending Result Diagram: 10/24/16204910/24/162049 Imaging Last Impressions Chest X-Ray 10/24/162033 Signed Impressions: Service Date/Time: Monday, October 24, 2016 20:47 - CONCLUSION: No acute cardiopulmonary disease demonstrated. Ganga Reynoso MD Assessment and Plan Problem List: (1) SIRS (systemic inflammatory response syndrome) ICD Code: R65.10 Status: Acute (2) Hypoxemia ICD Code: R09.02 Status: Acute (3) Generalized weakness ICD Code: R53.1 Status: Acute (4) History of mechanical aortic valve replacement ICD Code: Z95.2 Status: Chronic Assessment and Plan This is an 85-year-old female with history of aortic mechanical valve replacement on Coumadin- INR today 1.1, TIA, osteoarthritis, diastolic congestive heart failure, hyperlipidemia, seizure disorder and CAD. Patient was brought in by brought in by her [id number] for evaluation of fever, cough productive of greenish sputum x 3 days. Patient also has associated generalized weakness, generalized malaise, poor appetite and poor PO intake. Symptoms have been going on for last 3 days without any improvement. Patient is a poor history only able to provide limited information therefore information gathered from patient as well as prior charting. Patient is ill appears with frequent productive cough SIRS (leukocytosis white blood cell count 16.4 with 83% neutrophils, tachycardic 108) Hypoxia 91% on room air and patient who is not currently on home oxygen Chest x-ray reviewed by myself as well as Dr. Capellan reveals: No acute cardio pulmonary disease demonstrated. empirically treated for pneumonia with Rocephin and azithromycin in ER Start Levaquin 500 mg IV daily Duo nebs oxygen via nasal cannula Chronic diastolic congestive heart failure concern for acute exacerbation after fluid bolus in ER Chest x-ray ordered and pending Lasix 20 mg IV 1 Echocardiogram 08/31 showed grade I diastolic CHF Mechanical aortic heart valve on Coumadin INR subtherapeutic Will continue Coumadin with pharmacy to dose Lovenox 1 mg/kg until INR is greater than 2.0 Seizure disorder continue home medications gabapentin 300 mg by mouth twice a day, Keppra 500 mg by mouth twice a day DVT prophylaxis patient is on Lovenox as well as Coumadin Discussed with ER provider, nursing and patient Written by Elida Mauricio, acting as scribe for Dr. Capellan on 10/25/16 at 05: 58. This note was transcribed by scribe [ Elida Mauricio]. I, Dr. Leona Capellan personally performed the history, physical exam, and medical decision making; and confirmed the accuracy of the information in the transcribed note. Authenticated by Dr. Leona Capellan on 10/25/16 at 05:58. Elida Mauricio Oct 25, 2016 04:02 Leona Capellan MD November 12, 2016 05:11
[2016-10-25 04:36] LABS: AUTOMATED NEUTROPHIL # 11.2 TH/MM3 (1.8-7.7); BASOPHIL # 0.1 TH/MM3 (0-0.2); BASOPHIL % 0.4 % (0.0-2.0); EOSINOPHIL # 0.1 TH/MM3 (0-0.4); EOSINOPHIL % 0.5 % (0.0-4.0); HEMATOCRIT 30.8 % (35.0-46.0); HEMO FLAGS DIFF FINAL; LYMPH % 9.6 % (9.0-44.0); LYMPHOCYTE # 1.4 TH/MM3 (1.0-4.8); MEAN CELL VOLUME 89.7 FL (80.0-100.0); MEAN CORPUSCULAR HEMOGLOBIN 29.6 PG (27.0-34.0); MONO % 13.6 % (0.0-8.0); NEUT % 75.9 % (16.0-70.0); PLATELET COUNT 275 TH/MM3 (150-450); RED BLOOD COUNT 3.44 MIL/MM3 (4.00-5.30); RED CELL DISTRIBUTION WIDTH 13.8 % (11.6-17.2); WHITE BLOOD COUNT 14.8 TH/MM3 (4.0-11.0)
[2016-10-25 04:52] LABS: BICARBONATE 28.8 MEQ/L (21.0-32.0); POTASSIUM 3.9 MEQ/L (3.5-5.1)
[2016-10-25] MEDS ORDERED: FUROSEMIDE 20 MG/2 ML VIAL IV PUSH ONE (06:00)
[2016-10-25] MEDS ORDERED: RESP: ALBUTEROL 2.5 MG/IPRATROPIUM 0.5 MG NEB (PRN) NEB (06:00)
--- NOTE | 2016-10-25 06:03 | RADRPT ---
EXAM DATE/TIME: 10/25/2016 05:57 [facility] COMPARISON: CHEST SINGLE AP, October 24, 2016, 20:47. INDICATIONS : Shortness of breath, chest congestion MEDICAL HISTORY : Cardiovascular disease. Stroke. SURGICAL HISTORY : CABG. ENCOUNTER: Subsequent ACUITY: 1 week PAIN SCORE: 0/10 LOCATION: Bilateral chest FINDINGS: A single view of the chest is obtained. Minimal bibasilar subsegmental atelectasis. Cardiomegaly and previous CABG. The cardiomediastinal contours are unremarkable. Osseous structures are intact. CONCLUSION: Cardiomegaly and bibasilar subsegmental atelectasis. Status post CABG. Arthur Lynn MD on October 25, 2016 at 5:59 Board Certified Radiologist. This report was verified electronically.
[2016-10-25] MEDS: ENOXAPARIN SODIUM 80 MG/0.8 ML SYRINGE SQ SCH ×2 (06:07→18:47)
[2016-10-25] MEDS: RESP: ALBUTEROL 2.5 MG/IPRATROPIUM 0.5 MG NEB (SCH) NEB ×3 (07:57→22:59)
[2016-10-25] MEDS: LEVOFLOXACIN 750 MG PREMIX INJ 150 ML IV SCH (10:17)
[2016-10-25] MEDS: GABAPENTIN 300 MG CAP PO SCH ×2 (10:18→22:00)
[2016-10-25] MEDS: SODIUM CHLORIDE 0.9% FLUSH 10 ML FLUSH IV FLUSH SCH ×2 (10:18→22:01)
[2016-10-25] MEDS: levETIRAcetam 500 MG TAB PO SCH ×2 (10:18→22:00)
[2016-10-25] MEDS ORDERED: WARFARIN SOD 2 MG TAB PO SCH (16:00)
--- NOTE | 2016-10-25 17:51 | HHI.PR ---
Subjective Remarks Follow up fever and productive cough. Patient lying comfortably in bed, alert and oriented to self, unaware of situation and time. She states that cough is better. Denies any shortness of breath, chest pain, chills or fever. Has tolerated PO intake, although minimal appetite. Agrees to trying chocolate ensure with each meal tray. Objective Vitals Vital Signs Date Time Temp Pulse Resp B/P Pulse Ox O2 Delivery O2 Flow Rate FiO2 10/25/16 14:07 2.00 10/25/16 12:02 97.4 82 17 116/58 94 10/25/16 08:02 97.6 84 17 119/60 94 10/25/16 05:34 98.7 79 18 135/64 96 10/25/16 02:19 97.6 79 18 118/56 95 10/24/16 20:37 98 Nasal Cannula 2 10/24/16 20:28 102 18 143/68 91 10/24/16 20:06 99.9 108 16 125/74 91 Room Air Result Diagram: 10/25/16 0330 10/25/16 0338 Imaging Last Impressions Chest X-Ray 10/25/16 0000 Signed Impressions: Service Date/Time: October 05:57 - CONCLUSION: Cardiomegaly and bibasilar subsegmental atelectasis. Status post CABG. Arthur Lynn MD Objective Remarks GENERAL: Well-nourished, well-developed patient in NAD. SKIN: Warm and dry. No rash. HEENT: Normocephalic. Atraumatic. Pupils equal and round. No scleral icterus. No injection or drainage. ENT: No nasal bleeding or discharge. Mucous membranes pink and moist. NECK: Supple. Trachea midline. CARDIOVASCULAR: Regular rate and rhythm. S1, S2 noted. Mechanical click noted. RESPIRATORY: No accessory muscle use. Diminished left base, otherwise clear to auscultation with poor inspiratory effort. Breath sounds equal bilaterally. GASTROINTESTINAL: Abdomen soft, non-tender, nondistended. Normoactive bowel sounds x4. MUSCULOSKELETAL: No obvious deformities. Extremities without clubbing, cyanosis , or edema. NEUROLOGICAL: Awake and alert. No obvious cranial nerve deficits. Motor grossly within normal limits. 4/5 muscle strength in bilateral upper and lower extremities. Normal speech. PSYCHIATRIC: Appropriate mood and affect; alert and oriented to self, unaware of time, situation and place. Urinary Catheter: No Vascular Central Line Catheter: No A/P Assessment and Plan Ms. Loera is an 85-year-old female with history of aortic mechanical valve replacement on Coumadin- INR today 1.1, TIA, diastolic congestive heart failure , hyperlipidemia, seizure disorder and CAD who presented to the ED with complaint of fever and productive cough x 3 days. Sepsis secondary to pneumonia: (leukocytosis, WBCs initially 16.4, now 14.8; bandemia, neutrophils 75.9%; tachycardia; chest x-ray report reviewed, no acute cardio pulmonary disease demonstrated, cardiomegaly and bibasilar subsegmental atelectasis; fever 99.9 initially). - Pneumonia severity index score, 94 (positive hx of CHF and CVA, age 85) risk class IV, 8.2-9.3% mortality hospitalization recommended based on risk. - Rocephin and azithromycin given in ED - Continued Levaquin 500 mg IV daily - Continue duonebs scheduled and PRN - Influenza nasal washing negative. UA reviewed, negative. - BC preliminary results negative. Await growth. Acute respiratory failure secondary to above (O2sat 88% on 2 LNC) - O2 via nasal cannula to keep sats > 92% - Home walk test ordered and assessed: started at 86% O2 sats on room air. Anticipate home O2 at discharge. Chronic diastolic congestive heart failure concern for acute exacerbation after fluid bolus in ER - Chest x-ray report reviewed, cardiomegaly and bibasilar subsegmental atelectasis noted. - Lasix 20 mg IV 1 previously given in ED. - Echocardiogram 08/31 showed grade I diastolic CHF - BNP noted, 47. Mechanical aortic valve replacement history, on Coumadin subtherapeutic INR - INR initially 1.1. Redraw in am. - Will continue Coumadin with pharmacy to dose. - Continue Lovenox 1 mg/kg until INR therapeutic, INR 2.5-3.5. Malaise, generalized weakness with recently oral intake: likely secondary to acute infection as above - PT consulted, recommends HHC and walker. - Encourage increase in PO intake. Added chocolate ensure TID to each tray. Normocytic anemia likely dilutional secondary to IVF bolus in ED - Initial HH normal, drop in hemoglobin noted, 10.2. - Redraw CBC in am - No signs of acute bleed. Continue to monitor. Other chronic medical conditions noted and stable at this time: Seizure disorder , continued Keppra and gabapentin; osteoarthritis, hyperlipidemia, CAD. DVT Prophylaxis: SCDs Corry Louis Oct 25, 2016 17:51 Shila Falcon MD Oct 26, 2016 20:27 Corry Louis Oct 25, 2016 17:51 Corry Louis Oct 25, 2016 5:51 pm
--- NOTE | 2016-10-25 21:09 | EKG ---
Date Performed: 10/24/2016 Time Performed: 21:00:31 PTAGE: 85 years EKG: Sinus rhythm POSSIBLE RIGHT VENTRICULAR CONDUCTION DELAY SEPTAL MYOCARDIAL INFARCTION ABNORMAL ECG PREVIOUS TRACING : 09/04/2016 16.26 Compared to prior tracing no significant change DOCTOR: Pedro Summers Interpretating Date/Time 10/25/2016 21:06:59
[2016-10-25] MEDS: MIRTAZAPINE 15 MG TAB PO SCH (22:00)
[2016-10-26] VITALS (8 sets, daily range): BP systolic 93–122; BP diastolic 55–74; PULSE 70–89; RESP 18–20; TEMP 97.4–99.5; O2SAT 93–99
[2016-10-26] MEDS: RESP: ALBUTEROL 2.5 MG/IPRATROPIUM 0.5 MG NEB (SCH) NEB ×2 (04:03→09:57)
[2016-10-26] MEDS: ENOXAPARIN SODIUM 80 MG/0.8 ML SYRINGE SQ SCH ×2 (06:16→18:40)
[2016-10-26] MEDS: LEVOFLOXACIN 750 MG PREMIX INJ 150 ML IV SCH (08:22)
[2016-10-26] MEDS: levETIRAcetam 500 MG TAB PO SCH ×2 (08:22→20:59)
[2016-10-26] MEDS: GABAPENTIN 300 MG CAP PO SCH ×2 (08:22→20:59)
--- NOTE | 2016-10-26 08:53 | HHI.PR ---
Subjective Remarks Follow up fever and productive cough. Patient alert, oriented to self, disoriented to time, place and situation. Cough improved. Denies any shortness of breath or chest pain, no fever chills, nausea or vomiting. Denies any pain. Complaint of left midsternal rib pain, no radiation noted, worse with coughing. Objective Vitals Vital Signs Date Time Temp Pulse Resp B/P Pulse Ox O2 Delivery O2 Flow Rate FiO2 10/26/16 08:08 97.4 70 18 112/56 97 10/26/16 04:19 98.2 84 18 118/74 96 10/25/16 23:01 95 2.00 10/25/16 19:34 85 20 118/71 96 10/25/16 19:17 97 10/25/16 16:03 95.6 88 18 113/58 88 10/25/16 14:07 2.00 10/25/16 12:02 97.4 82 17 116/58 94 I/O 10/25/16 10/25/16 10/25/16 10/26/16 10/26/16 10/26/16 07:00 15:00 23:00 07:00 15:00 23:00 Output Total 960 ml Balance -960 ml Output Urine Total 960 ml # Voids 4 # Bowel Movements 0 Result Diagram: 10/25/16 0330 10/25/16 0338 Imaging Last Impressions Chest X-Ray 10/25/16 0000 Signed Impressions: Service Date/Time: October 05:57 - CONCLUSION: Cardiomegaly and bibasilar subsegmental atelectasis. Status post CABG. Arthur Lynn MD Objective Remarks GENERAL: Well-nourished, well-developed patient in NAD. SKIN: Warm and dry. No rash. HEENT: Normocephalic. Atraumatic. Pupils equal and round. No scleral icterus. No injection or drainage. ENT: No nasal bleeding or discharge. Mucous membranes pink and moist. NECK: Supple. Trachea midline. CARDIOVASCULAR: Regular rate and rhythm. S1, S2 noted. Mechanical click noted. RESPIRATORY: No accessory muscle use. CTA with poor inspiratory effort. Breath sounds equal bilaterally. GASTROINTESTINAL: Abdomen soft, non-tender, nondistended. Normoactive bowel sounds x4. MUSCULOSKELETAL: No obvious deformities. Extremities without clubbing, cyanosis , or edema. NEUROLOGICAL: Awake and alert. No obvious cranial nerve deficits. Motor grossly within normal limits. 4/5 muscle strength in bilateral upper and lower extremities. Normal speech. PSYCHIATRIC: Appropriate mood and affect; alert and oriented to self, unaware of time, situation and place. Urinary Catheter: No Vascular Central Line Catheter: No A/P Assessment and Plan Ms. Loera is an 85-year-old female with history of aortic mechanical valve replacement on Coumadin- INR today 1.1, TIA, diastolic congestive heart failure , hyperlipidemia, seizure disorder and CAD who presented to the ED with complaint of fever and productive cough x 3 days. Sepsis secondary to pneumonia: (leukocytosis, WBCs initially 16.4, now WNL 9.6 bandemia, neutrophils 75.9%; tachycardia; chest x-ray report reviewed, no acute cardio pulmonary disease demonstrated, cardiomegaly and bibasilar subsegmental atelectasis; fever 99.9, initially). - Rocephin and azithromycin given in ED - Continued Levaquin 500 mg IV daily, changed to oral at discharge. - Continue duonebs scheduled and PRN - Influenza nasal washing negative. UA reviewed, negative. - BC NGTD Acute respiratory failure secondary to above previously on home O2 - O2 via nasal cannula to keep sats > 92% - Home walk test ordered and assessed: started at 86% O2 sats on room air. Will need home O2 upon discharge. - O2 sats improved today after resuming on 2 L NC. Case management consulted to resume home oxygen. Atypical chest discomfort -Reproducible to palpation, worse with coughing likely secondary to pneumonia above -Check troponins 2, check EKG Chronic diastolic congestive heart failure concern for acute exacerbation after fluid bolus in ER - Chest x-ray report reviewed, cardiomegaly and bibasilar subsegmental atelectasis noted. - Lasix 20 mg IV 1 previously given in ED. - Echocardiogram 08/31 showed grade I diastolic CHF - BNP noted, 47. Mechanical aortic valve replacement history, on Coumadin subtherapeutic INR - INR initially 1.1. INR 1.7 today. - Will continue Coumadin with pharmacy to dose. - Continue Lovenox 1 mg/kg until INR therapeutic, INR 2.5-3.5. Malaise, generalized weakness with recently oral intake: likely secondary to acute infection as above - PT continue to follow. - Encourage PO intake. Added chocolate ensure TID to each tray. Normocytic anemia likely dilutional secondary to IVF bolus in ED - Initial HH normal, hemoglobin now 10.8. - No signs of acute bleed. Continue to monitor. Other chronic medical conditions noted and stable at this time: Seizure disorder , continued Keppra and gabapentin; osteoarthritis, hyperlipidemia, CAD. DVT Prophylaxis: SCDs Discharge Planning Patient states she lives at home alone with son nearby and visits daily. CM consult to assist with discharge planning, arranging for home health care. Has a walker at home. Corry Louis Oct 26, 2016 8:53 am Other chronic medical conditions noted and stable at this time: Seizure disorder , continued Keppra and gabapentin; osteoarthritis, hyperlipidemia, CAD. DVT Prophylaxis: SCDs Discharge Planning Patient states she lives at home alone with son nearby and visits frequently. Patient is axox1, disoriented to time, place and situation. CM consult to assist with discharge disposition. Repeat home O2 walk test. PT following, uses cane at home for mobility. Patient still very weak. Corry Louis Oct 26, 2016 08:53
[2016-10-26] MEDS: SODIUM CHLORIDE 0.9% FLUSH 10 ML FLUSH IV FLUSH SCH ×2 (09:00→20:59)
[2016-10-26] MEDS ORDERED: WALKER WHEELS/F1 MIS (09:02)
[2016-10-26] MEDS ORDERED: OXYGENTANK NAS.CANULA (09:04)
[2016-10-26 09:25] LABS: AUTOMATED NEUTROPHIL # 7.1 TH/MM3 (1.8-7.7); BASOPHIL # 0.1 TH/MM3 (0-0.2); BASOPHIL % 0.7 % (0.0-2.0); EOSINOPHIL # 0.1 TH/MM3 (0-0.4); EOSINOPHIL % 0.7 % (0.0-4.0); HEMATOCRIT 33.2 % (35.0-46.0); HEMO FLAGS DIFF FINAL; LYMPH % 10.6 % (9.0-44.0); MEAN CELL VOLUME 89.8 FL (80.0-100.0); MEAN CORPUSCULAR HEMOGLOBIN 29.1 PG (27.0-34.0); MEAN CORPUSCULAR HGB CONC 32.4 % (32.0-36.0); MONO % 14.7 % (0.0-8.0); NEUT % 73.3 % (16.0-70.0); PLATELET COUNT 285 TH/MM3 (150-450); RED CELL DISTRIBUTION WIDTH 14.4 % (11.6-17.2); WHITE BLOOD COUNT 9.6 TH/MM3 (4.0-11.0)
[2016-10-26 09:32] LABS: INTERNATIONAL NORMALIZED RATIO 1.7 RATIO; PROTHROMBIN TIME - PATIENT 19.4 SEC (9.8-11.6)
[2016-10-26 09:44] LABS: BICARBONATE 31.9 MEQ/L (21.0-32.0); POTASSIUM 3.9 MEQ/L (3.5-5.1)
[2016-10-26] MEDS ORDERED: SODIUM CHLOR 0.9% 250 ML INJ 250 ML IV ONE (12:15)
[2016-10-26] MEDS ORDERED: SODIUM CHLOR 0.9% 1000 ML INJ 1,000 ML IV SCH (13:00)
[2016-10-26] MEDS ORDERED: ALBUAER3 INH (13:11)
[2016-10-26] MEDS ORDERED: WARFARIN SOD 1 MG TAB PO SCH (16:00)
[2016-10-26] MEDS: MIRTAZAPINE 15 MG TAB PO SCH (20:59)
[2016-10-27] VITALS (11 sets, daily range): BP systolic 115–128; BP diastolic 56–65; PULSE 76–106; RESP 18–20; TEMP 97.5–98.5; O2SAT 90–95
[2016-10-27] MEDS: RESP: ALBUTEROL 2.5 MG/IPRATROPIUM 0.5 MG NEB (SCH) NEB ×4 (04:57→19:34)
[2016-10-27] MEDS: ENOXAPARIN SODIUM 80 MG/0.8 ML SYRINGE SQ SCH ×2 (06:50→18:15)
[2016-10-27] MEDS: LEVOFLOXACIN 750 MG PREMIX INJ 150 ML IV SCH (08:45)
[2016-10-27] MEDS: GABAPENTIN 300 MG CAP PO SCH ×2 (08:46→21:09)
[2016-10-27] MEDS: levETIRAcetam 500 MG TAB PO SCH ×2 (08:46→21:09)
[2016-10-27] MEDS: SODIUM CHLORIDE 0.9% FLUSH 10 ML FLUSH IV FLUSH SCH ×2 (08:46→21:09)
[2016-10-27 10:03] LABS: INTERNATIONAL NORMALIZED RATIO 1.7 RATIO; PROTHROMBIN TIME - PATIENT 19.6 SEC (9.8-11.6)
--- NOTE | 2016-10-27 14:19 | HHI.PR ---
Subjective Remarks Follow-up for pneumonia. The patient continues to complain of pleuritic left- sided chest discomfort, worse with coughing. Coughing continues to be dry. She denies any shortness of breath or specific chest pain. She does feel a little improved during hospitalization. She does not want to go to rehabilitation. She does state that she hasn't been able to stand up today. She states her PCP follows her INR levels. The patient states her son checks in on her every day and lives close by. Discussed with RN, concerns with patient's ambulation. Objective Vitals Vital Signs Date Time Temp Pulse Resp B/P Pulse Ox O2 Delivery O2 Flow Rate FiO2 10/27/16 10:03 90 Nasal Cannula 21 10/27/16 09:00 Nasal Cannula 2.00 10/27/16 08:13 81 10/27/16 08:00 98.5 76 20 126/65 95 10/27/16 04:57 94 Nasal Cannula 1.00 10/27/16 04:00 97.5 89 18 118/62 93 10/27/16 00:00 97.9 86 20 125/61 93 10/26/16 20:10 87 10/26/16 20:00 98.9 88 18 114/60 99 10/26/16 19:30 Nasal Cannula 2.00 10/26/16 16:45 99.5 85 18 122/56 95 I/O 10/26/16 10/26/16 10/26/16 10/27/16 10/27/16 10/27/16 07:00 15:00 23:00 07:00 15:00 23:00 Intake Total 240 ml 840 ml Balance 240 ml 840 ml Intake Oral 240 ml 120 ml IV Total 720 ml # Voids 2 3 # Bowel Movements 0 0 Result Diagram: 10/26/16 0851 10/26/16 0851 Imaging Last Impressions Chest X-Ray 10/25/16 0000 Signed Impressions: Service Date/Time: October 05:57 - CONCLUSION: Cardiomegaly and bibasilar subsegmental atelectasis. Status post CABG. Arthur Lynn MD Objective Remarks GENERAL: Well-developed well-nourished. In no acute distress. SKIN: Warm and dry. No lesions noted. HEENT: Normocephalic. Pupils equal and round. Mucous membranes pink and moist. CARDIOVASCULAR: Regular rate and rhythm. Mechanical murmur appreciated. Reproducible chest wall TTP. RESPIRATORY: No accessory muscle use. Clear to auscultation. Breath sounds equal bilaterally. GASTROINTESTINAL: Abdomen soft, non-tender, nondistended. Bowel sounds x4. MUSCULOSKELETAL: No obvious deformities. No clubbing or cyanosis. No edema. NEUROLOGICAL: Awake and alert. No focal neurological deficits. Moves upper and lower extremities spontaneously. Normal speech. PSYCHIATRIC: Appropriate mood and affect; insight and judgment fair. A/P Problem List: (1) SIRS (systemic inflammatory response syndrome) ICD Code: R65.10 Status: Acute (2) Hypoxemia ICD Code: R09.02 Status: Acute (3) Generalized weakness ICD Code: R53.1 Status: Acute (4) History of mechanical aortic valve replacement ICD Code: Z95.2 Status: Chronic Assessment and Plan Ms. Loera is an 85-year-old female with history of aortic mechanical valve replacement on Coumadin- INR today 1.1, TIA, diastolic congestive heart failure , hyperlipidemia, seizure disorder and CAD who presented to the ED with complaint of fever and productive cough x 3 days. Sepsis secondary to pneumonia: (leukocytosis, WBCs initially 16.4, now WNL 9.6 bandemia, neutrophils 75.9%; tachycardia; chest x-ray report reviewed, no acute cardio pulmonary disease demonstrated, cardiomegaly and bibasilar subsegmental atelectasis; fever 99.9, initially). - Rocephin and azithromycin given in ED - Continue Levaquin 500 mg IV daily, changed to oral at discharge. - Continue duonebs scheduled and PRN - Influenza nasal washing negative. UA reviewed, negative. - BC NGTD - Incentive spirometry Acute respiratory failure secondary to above previously on home O2 - O2 via nasal cannula to keep sats > 92% - Home walk test ordered and assessed: started at 86% O2 sats on room air. Will need home O2 upon discharge. - O2 sats improved after resuming on NC. Case management consulted to resume home oxygen. Atypical chest discomfort, sounds pleuritic, reproducible to palpation -Checked troponins 2, within normal limits -Checked EKG, reviewed, no ischemic changes - Continue treatment for pneumonia as above Chronic diastolic congestive heart failure. - Chest x-ray showed cardiomegaly and bibasilar subsegmental atelectasis noted. - Echocardiogram 08/31 showed grade I diastolic CHF - Lasix was given in the ED, BNP was not elevated, patient was hypotensive yesterday and required gentle IVF - Currently normotensive and appears euvolemic. Mechanical aortic valve replacement history, on Coumadin subtherapeutic INR - INR 1.7, subtherapeutic - Will continue Coumadin with pharmacy to dose. - Continue Lovenox 1 mg/kg until INR therapeutic, INR 2.5-3.5. - Will ask [facility] nursing to continue with Lovenox until INR therapeutic Malaise, generalized weakness with recently oral intake: likely secondary to acute infection as above - PT consulted, recommended [facility], will ask PT for reevaluation today - Encourage PO intake. Added chocolate ensure TID to each tray. Normocytic anemia likely dilutional secondary to IVF bolus in ED - Initial HH normal, hemoglobin now 10.8. - No signs of acute bleed. Continue to monitor. Other chronic medical conditions noted and stable at this time: Seizure disorder , continued Keppra and gabapentin; osteoarthritis, hyperlipidemia, CAD. DVT Prophylaxis: SCDs Written by Zion Meyers, acting as scribe for Dr. Falcon on 10/27/16 at 14:19. Discharge Planning Pneumonia improving. PT reevaluated the patient today, discussed with physical therapy. She states that the patient is able to ambulate safely, but due to mental status would recommend she be discharged in the care of her family for close supervision. Discussed with patient's son over the phone with the patient's permission. The patient's son normally checks in on the patient, however he is recovering from osteomyelitis of the foot currently and would have a difficult time caring for his mother. However, he states that the patient's granddaughter is coming into town tomorrow, and would be able to stay with the patient. He states that the patient has checked herself out of rehabilitation multiple times in the past, and would prefer she go home with [facility] as well. Patient family are agreeable for discharge 10/28 once more family can be available at home to help her. Attending Statement This note was transcribed by scribe. I, Dr. Shila Falcon personally performed the history, physical exam, and medical decision making; and confirmed the accuracy of the information in the transcribed note. Authenticated by Dr. Shila Falcon on 10/27/16 at 21:47. Zion Meyers Oct 27, 2016 14:19 Shila Falcon MD Oct 27, 2016 21:47
--- NOTE | 2016-10-27 14:26 | HHI.FF ---
Face to Face Verification Diagnosis: (1) Acute respiratory failure with hypoxemia (2) History of mechanical aortic valve replacement (3) HCAP (healthcare-associated pneumonia) (4) Subtherapeutic international normalized ratio (INR) (5) Generalized weakness Physical Therapy Order: Evaluate and Treat, Improve ambulation, Strength and gait training Home Health Nursing Order: Medical education Signs/symptoms of disease process CHF education Oxygen administration education Medication education-adverse effect Nursing assessment with vital signs IV medication administration Instructions: Continue Lovenox subcutaneous daily with daily INR checks with results to PCP until INR therapeutic and PCP discontinues Lovenox. Management Consultant Order: To Evaluate: Living conditions/environment, Support services Order: To Provide: Long range planning, Community services I have seen patient Lelia Loera on 10/27/16. My clinical findings support the need for the requested home health care services because: Ltd mobility - disease progression Patient has SOB Deconditioned w/ increased weakness Med compliance is questionable Limited ability to care for self Need for psychosocial assistance Impaired cognition/judgement High risk of falls Injectable med education/admin I certify that my clinical findings support that this patient is homebound because: Impaired cognitive ability/safety Hx COPD- exertion dyspnea/weakness Unsteady gait/balance Need for psychosocial assistance Poor cardiac reserve Zion Meyers Oct 27, 2016 14:26
[2016-10-27] MEDS ORDERED: COUM2TAB PO (14:27)
--- NOTE | 2016-10-27 15:46 | EKG ---
Date Performed: 10/26/2016 Time Performed: 15:44:29 PTAGE: 85 years EKG: SLIGHT RIGHT VENTRICULAR CONDUCTION DISTURBANCE OTHERWISE WITHIN NORMAL LIMITS Since previo us tracing, no significant change noted BORDERLINE ECG PREVIOUS TRACING : 10/24/2016 21.00 DOCTOR: Srinath Kumar Interpretating Date/Time 10/27/2016 15:45:55
[2016-10-27] MEDS: WARFARIN SOD 2 MG TAB PO SCH (18:15)
[2016-10-27] MEDS: MIRTAZAPINE 15 MG TAB PO SCH (21:09)
[2016-10-28] VITALS (11 sets, daily range): BP systolic 95–127; BP diastolic 54–63; PULSE 73–93; RESP 16–24; TEMP 97.3–98.2; O2SAT 90–96
[2016-10-28] MEDS: RESP: ALBUTEROL 2.5 MG/IPRATROPIUM 0.5 MG NEB (SCH) NEB ×4 (03:49→21:18)
[2016-10-28] MEDS: ENOXAPARIN SODIUM 80 MG/0.8 ML SYRINGE SQ SCH ×2 (05:14→16:53)
[2016-10-28 07:13] LABS: INTERNATIONAL NORMALIZED RATIO 1.8 RATIO; PROTHROMBIN TIME - PATIENT 20.2 SEC (9.8-11.6)
[2016-10-28] MEDS: levETIRAcetam 500 MG TAB PO SCH ×2 (10:15→20:45)
[2016-10-28] MEDS: GABAPENTIN 300 MG CAP PO SCH ×2 (10:15→20:45)
[2016-10-28] MEDS: SODIUM CHLORIDE 0.9% FLUSH 10 ML FLUSH IV FLUSH SCH ×2 (10:16→20:45)
[2016-10-28] MEDS: LEVOFLOXACIN 750 MG PREMIX INJ 150 ML IV SCH (10:16)
[2016-10-28] MEDS ORDERED: ONDANSETRON HCL 4 MG/2 ML VIAL IV PUSH PRN (10:30)
[2016-10-28] MEDS: ACETAMINOPHEN 325 MG TAB PO PRN (11:14)
--- NOTE | 2016-10-28 13:52 | HHI.PR ---
Subjective Remarks Follow-up for pneumonia. Patient had episode of nausea and vomiting this a.m., Zofran IV and Tylenol given with improvement. She is alert and oriented to self with confusion regarding time and place. Per nurse, patient is still very weak and having difficulty with transferring to the chair and bedside commode. Patient appetite is very poor, has had minimal intake. Denies any chest pain, cough, fever, shortness of breath. Patient is adamant that she wants to go home and does not want to go to rehabilitation, stating that her son checks on her every day and lives close by. Objective Vitals Vital Signs Date Time Temp Pulse Resp B/P Pulse Ox O2 Delivery O2 Flow Rate FiO2 10/28/16 09:43 91 Nasal Cannula 21 10/28/16 08:02 98.2 73 18 113/56 92 10/28/16 04:00 98.2 85 16 123/63 92 10/28/16 03:51 90 21 10/28/16 00:00 98.2 92 17 97/60 92 10/27/16 20:00 93 10/27/16 20:00 Room Air 10/27/16 20:00 98.1 96 18 115/57 92 10/27/16 19:37 90 21 10/27/16 16:00 97.6 100 18 128/60 94 I/O 10/27/16 10/27/16 10/27/16 10/28/16 10/28/16 10/28/16 07:00 15:00 23:00 07:00 15:00 23:00 Intake Total 840 ml 500 ml 78 ml Output Total 500 ml Balance 840 ml 0 ml 78 ml Intake Oral 120 ml 500 ml IV Total 720 ml 78 ml Output Urine Total 500 ml # Voids 3 1 3 # Bowel Movements 0 1 Result Diagram: 10/26/16 0851 10/26/16 0851 Imaging Last Impressions Chest X-Ray 10/25/16 0000 Signed Impressions: Service Date/Time: October 05:57 - CONCLUSION: Cardiomegaly and bibasilar subsegmental atelectasis. Status post CABG. Arthur Lynn MD Objective Remarks GENERAL: Well-nourished, well-developed patient in NAD. SKIN: Warm and dry. No rash. HEENT: Normocephalic. Atraumatic. Pupils equal and round. No scleral icterus. No injection or drainage. ENT: No nasal bleeding or discharge. Mucous membranes pink and moist. NECK: Supple. Trachea midline. CARDIOVASCULAR: Regular rate and rhythm. S1, S2 noted. Mechanical click noted. RESPIRATORY: No accessory muscle use. CTA with poor inspiratory effort. Breath sounds equal bilaterally. GASTROINTESTINAL: Abdomen soft, non-tender, nondistended. Normoactive bowel sounds x4. MUSCULOSKELETAL: No obvious deformities. Extremities without clubbing, cyanosis , or edema. NEUROLOGICAL: Awake and alert. No obvious cranial nerve deficits. Motor grossly within normal limits. 4/5 muscle strength in bilateral upper and lower extremities. Normal speech. PSYCHIATRIC: Appropriate mood and affect; alert and oriented to self, unaware of time, situation and place. Urinary Catheter: No Vascular Central Line Catheter: No A/P Problem List: (1) SIRS (systemic inflammatory response syndrome) ICD Code: R65.10 Status: Acute (2) Hypoxemia ICD Code: R09.02 Status: Acute (3) Generalized weakness ICD Code: R53.1 Status: Acute (4) History of mechanical aortic valve replacement ICD Code: Z95.2 Status: Chronic Assessment and Plan Ms. Loera is an 85-year-old female with history of aortic mechanical valve replacement on Coumadin- INR today 1.1, TIA, diastolic congestive heart failure , hyperlipidemia, seizure disorder and CAD who presented to the ED with complaint of fever and productive cough x 3 days. Sepsis secondary to pneumonia: (leukocytosis, WBCs initially 16.4, now WNL 9.6 bandemia, neutrophils 75.9%; tachycardia; chest x-ray report reviewed, no acute cardio pulmonary disease demonstrated, cardiomegaly and bibasilar subsegmental atelectasis; fever 99.9, initially). - Rocephin and azithromycin given in ED - Continue Levaquin 500 mg IV daily, change to oral at discharge. - Continue duonebs scheduled and PRN - Influenza nasal washing negative. UA reviewed, negative. - BC NGTD - Incentive spirometry Acute respiratory failure secondary to above previously on home O2 - O2 via nasal cannula to keep sats > 92% - Home walk test ordered and assessed: started at 86% O2 sats on room air. Will need home O2 upon discharge. - O2 sats improved after resuming on NC. Case management consulted to resume home oxygen. Atypical chest discomfort, sounds pleuritic, reproducible to palpation -Checked troponins 2, within normal limits -Checked EKG, reviewed, no ischemic changes - Continue treatment for pneumonia as above Chronic diastolic congestive heart failure. - Chest x-ray showed cardiomegaly and bibasilar subsegmental atelectasis noted. - Echocardiogram 08/31 showed grade I diastolic CHF - Lasix was given in the ED, BNP was not elevated, patient was hypotensive yesterday and required gentle IVF - Currently normotensive and appears euvolemic. Mechanical aortic valve replacement history, on Coumadin subtherapeutic INR - INR 1.8, subtherapeutic - Will continue Coumadin with pharmacy to dose. - Continue Lovenox 1 mg/kg until INR therapeutic, INR 2.5-3.5. - Will ask [facility] nursing to continue with Lovenox until INR therapeutic Malaise, generalized weakness with recently oral intake: likely secondary to acute infection as above - PT consulted, recommended C. Supposedly patient is still weak with pivoting and transferring. - Did have nausea and vomiting today. Zofran PRN. - Encourage PO intake. Added chocolate ensure TID to each tray. Poor PO intake. Normocytic anemia likely dilutional secondary to IVF bolus in ED - Initial HH normal, stable. - No signs of acute bleed. Continue to monitor. Other chronic medical conditions noted and stable at this time: Seizure disorder , continued Keppra and gabapentin; osteoarthritis, hyperlipidemia, CAD. DVT Prophylaxis: SCDs Discharge Planning Per physical therapy reevaluation 10/27, patient is able to ambulate safely but due to her mental status, recommendations are for her to be discharged with close supervision from family members. At this time, we will reevaluate tomorrow for patient discharge. CM following to assist with discharge planning. Addendum to Inpatient Note Additional Information The exam, history, and the medical decision-making described in the above note were completed with the assistance of the mid-level provider. I reviewed and agree with the findings presented. I attest that I had a [id number] encounter with the patient on the same day, and personally performed and documented my assessment and findings in the medical record. Patient is confused. Unable to tell me date or who the president is. Mild confabulation. Very anxious and insisting on going home. It is not entirely clear that the patient has capacity at this time. I will check a speech therapy cognitive evaluation. Consider psychiatry consultation for second opinion on capacity depending on speech therapy evaluation. I do not believe she is a safe discharge home at this time. Her Coumadin was subtherapeutic which is very dangerous given her mechanical aortic valve. Although she can at times ambulate this morning she was too weak to get out of bed without assistance from 2 nurses. Corry Louis Oct 28, 2016 13:52 Shila Falcon MD Oct 28, 2016 15:41
[2016-10-28] MEDS: WARFARIN SOD 2 MG TAB PO SCH (16:00)
[2016-10-28] MEDS: MIRTAZAPINE 15 MG TAB PO SCH (20:45)
[2016-10-29] VITALS (8 sets, daily range): BP systolic 96–116; BP diastolic 55–62; PULSE 71–85; RESP 18–22; TEMP 97.5–98.3; O2SAT 91–96
[2016-10-29] MEDS: ACETAMINOPHEN 325 MG TAB PO PRN ×2 (00:56→16:21)
[2016-10-29] MEDS: RESP: ALBUTEROL 2.5 MG/IPRATROPIUM 0.5 MG NEB (SCH) NEB (03:16)
[2016-10-29] MEDS: ENOXAPARIN SODIUM 80 MG/0.8 ML SYRINGE SQ SCH (05:35)
[2016-10-29 07:34] LABS: INTERNATIONAL NORMALIZED RATIO 2.6 RATIO
[2016-10-29] MEDS: LEVOFLOXACIN 750 MG PREMIX INJ 150 ML IV SCH (08:13)
[2016-10-29] MEDS: SODIUM CHLORIDE 0.9% FLUSH 10 ML FLUSH IV FLUSH SCH ×2 (08:13→20:24)
[2016-10-29] MEDS: levETIRAcetam 500 MG TAB PO SCH ×2 (08:13→20:25)
[2016-10-29] MEDS: GABAPENTIN 300 MG CAP PO SCH ×2 (08:13→20:24)
--- NOTE | 2016-10-29 19:20 | HHI.PR ---
Subjective Remarks Speech therapy evaluation showed severe dementia. Patient needs total supervision for ADLs. The patient is adamant to return home. Per the nurse the patient's son is requesting the patient return home and stating that her niece will be there in 2 weeks to help take care of her. Patient tells me that she has been in the house for her whole life and she requests I talked to her son. Objective Vitals Vital Signs Date Time Temp Pulse Resp B/P Pulse Ox O2 Delivery O2 Flow Rate FiO2 10/29/16 16:00 98.3 84 20 114/59 94 10/29/16 12:00 97.7 81 22 97/55 96 10/29/16 09:04 94 10/29/16 08:00 76 10/29/16 08:00 97.7 84 20 116/56 91 10/29/16 08:00 Room Air 10/29/16 04:00 97.5 81 20 96/62 94 10/29/16 00:00 98.2 85 20 108/58 93 10/28/16 21:21 95 21 10/28/16 20:46 89 10/28/16 20:45 Room Air 10/28/16 20:00 97.9 90 21 127/56 94 I/O 10/28/16 10/28/16 10/28/16 10/29/16 10/29/16 10/29/16 07:00 15:00 23:00 07:00 15:00 23:00 Intake Total 480 ml 220 ml 754 ml Output Total 200 ml 450 ml Balance 280 ml -230 ml 754 ml Intake Oral 480 ml 220 ml 600 ml IV Total 154 ml Output Urine Total 200 ml 450 ml # Voids 3 2 # Bowel Movements 0 0 0 Result Diagram: 10/26/1685010/26/1651 Objective Remarks GENERAL: Well-nourished, well-developed pleasant but mildly confused elderly female patient. SKIN: Warm and dry. HEAD: Normocephalic. EYES: No scleral icterus. No injection or drainage. NECK: Supple, trachea midline. No JVD or lymphadenopathy. CARDIOVASCULAR: Regular rate and rhythm without murmurs, gallops, or rubs. RESPIRATORY: Breath sounds equal and CTA bilaterally. No accessory muscle use. GASTROINTESTINAL: Abdomen soft, non-tender, nondistended. EXTREMITIES: No cyanosis, or edema. NEUROLOGICAL: Awake, alert, and oriented to self only. Non-focal. A/P Problem List: (1) SIRS (systemic inflammatory response syndrome) ICD Code: R65.10 Status: Acute (2) Hypoxemia ICD Code: R09.02 Status: Acute (3) Generalized weakness ICD Code: R53.1 Status: Acute (4) History of mechanical aortic valve replacement ICD Code: Z95.2 Status: Chronic (5) Dementia ICD Code: F03.90 Status: Acute Assessment and Plan Ms. Loera is an 85-year-old female with history of aortic mechanical valve replacement on Coumadin- INR today 1.1, TIA, diastolic congestive heart failure , hyperlipidemia, seizure disorder and CAD who presented to the ED with complaint of fever and productive cough x 3 days. Sepsis secondary to pneumonia: (leukocytosis, WBCs initially 16.4, now WNL 9.6 bandemia, neutrophils 75.9%; tachycardia; chest x-ray report reviewed, no acute cardio pulmonary disease demonstrated, cardiomegaly and bibasilar subsegmental atelectasis; fever 99.9, initially). resolved. - Rocephin and azithromycin given in ED - Continue Levaquin 500 mg IV daily, change to oral at discharge. - Continue duonebs scheduled and PRN - Influenza nasal washing negative. UA reviewed, negative. - NGTD - Incentive spirometry Acute respiratory failure secondary to above previously on home O2 - O2 via nasal cannula to keep sats > 92% - Home walk test ordered and assessed: started at 86% O2 sats on room air. Will need home O2 upon discharge. - O2 sats improved after resuming on NC. Case management consulted to resume home oxygen. Atypical chest discomfort, sounds pleuritic, reproducible to palpation -Checked troponins 2, within normal limits -Checked EKG, reviewed, no ischemic changes - Continue treatment for pneumonia as above Chronic diastolic congestive heart failure. - Chest x-ray showed cardiomegaly and bibasilar subsegmental atelectasis noted. - Echocardiogram 08/31 showed grade I diastolic CHF - Lasix was given in the ED, BNP was not elevated - Currently normotensive and appears euvolemic. Mechanical aortic valve replacement history, on Coumadin subtherapeutic INR - INR 2.6 today therapeutic - Will continue Coumadin with pharmacy to dose. DC lovenox. - Patient is unable to tell me who her PCP is due to her dementia Malaise, generalized weakness with recently oral intake: likely secondary to acute infection as above - PT consulted, recommended HHC. Supposedly patient is still weak with pivoting and transferring. - Did have nausea and vomiting today. Zofran PRN. - Encourage PO intake. Added chocolate ensure TID to each tray. Poor PO intake. Normocytic anemia likely dilutional secondary to IVF bolus in ED - Initial HH normal, stable. - No signs of acute bleed. Continue to monitor. Other chronic medical conditions noted and stable at this time: Seizure disorder , continued Keppra and gabapentin; osteoarthritis, hyperlipidemia, CAD. Dementia - severe - as per ST cognitive evaluation. I do not believe the patient has capacity to manage her chronic medical conditions, and clearly cannot be discharged back to her home environment without 24 hr supervision for assistance with ADLs. Unfortunately the pt's son was recently hospitalized and is unable to provide this support. He is requesting she return home and states that her niece will come to stay with her in several weeks. Patient is able to clearly and consistently express a desire to return home. -I will attempt to find out who this patient's PCP is tomorrow and discuss with the PCP how she has been doing in the outpatient setting. -Consult palliative care for second opinion on capacity. - Will discuss with son tomorrow. DVT Prophylaxis: Shila Acevedo MD Oct 29, 2016 19:20
[2016-10-29] MEDS: MIRTAZAPINE 15 MG TAB PO SCH (20:24)
[2016-10-30] VITALS (7 sets, daily range): BP systolic 110–130; BP diastolic 56–63; PULSE 73–90; RESP 18; TEMP 97.1–98.7; O2SAT 91–97
[2016-10-30] MEDS: ACETAMINOPHEN 325 MG TAB PO PRN ×2 (06:19→14:40)
[2016-10-30 08:23] LABS: PROTHROMBIN TIME - PATIENT 22.2 SEC (9.8-11.6)
[2016-10-30] MEDS: levETIRAcetam 500 MG TAB PO SCH ×2 (08:48→20:16)
[2016-10-30] MEDS: GABAPENTIN 300 MG CAP PO SCH ×2 (08:48→20:16)
[2016-10-30] MEDS: LEVOFLOXACIN 750 MG PREMIX INJ 150 ML IV SCH (08:49)
[2016-10-30] MEDS: SODIUM CHLORIDE 0.9% FLUSH 10 ML FLUSH IV FLUSH SCH ×2 (08:50→20:16)
--- NOTE | 2016-10-30 11:51 | PD.CONS ---
Consult Service Palliative Care Consult Requested By Dr. Falcon . Primary Care Physician Non-Staff . Reason for Consultation a. To assist with evaluation and management of symptoms including: confusion, falls b. To assist medical decision maker(s) with: better understanding of current medical conditions; weighing benefits/burdens of medical treatment options; making medical treatment decisions. . HPI History of Present Illness This 85-year-old female, with a past history of CAD, dementia, anemia, CKD, and 2 previous hospitalizations within the past year, presented to the emergency department on 10/25/16 after 3 days of malaise, weakness, intermittent fever, and productive cough. She reportedly had some mild dyspnea. The patient had a previous admission for pneumonia and sepsis with hypoxic respiratory failure in December 2015, and she had an admission in August 2016 after a fall that led to a large chest wall hematoma that had to be drained. In the emergency department, findings included: * Temp 99.9, pulse 102, respirations 18, blood pressure 143/68, oxygen saturation 98% on 2 L * White count 16.4, hemoglobin 12.6 * Sodium 137, creatinine 1.0, GFR 53 * Chest x-ray without apparent acute disease Cultures were obtained, antibiotics were started, and the patient was admitted to the hospital. She had some relative hypoxia the following day with saturations as low as 88%. Blood cultures remained negative. Although the patient denied history of dementia, there is mention of it in past records, and the patient was noted to be confused/disoriented at times. The patient's sister Arabella reports that "she just has a little memory problem sometimes." Speech Therapy did a cognitive evaluation using the SLUMS process, and the patient reportedly scored 3/19, indicating "severe dementia." The patient has been insistent on returning home where she lives alone, and the patient's health care providers have appropriately been concerned about the patient's safety in that setting. Palliative Care was consulted to assist with symptom management, to provide opinion regarding decision-making capacity, and to enter into discussions with the patient and family members regarding the benefits and burdens of the various treatment options. . Function/Cognitive Trajectory The patient was living alone and functioning somewhat independently. Her son Fred came to help her each day. There was some concern that the patient was not taking medications as prescribed, and that she was forgetting other actions and duties that she was to perform. . Review of Systems ROS Limitations: Altered Mental Status (some confusion/disorientation) Constitutional: COMPLAINS OF: Weight loss (she thinks she lost a few pounds) Endocrine: DENIES: Polyuria Eyes: DENIES: Eye inflammation Ears, nose, mouth, throat: DENIES: Epistaxis Respiratory: COMPLAINS OF: Cough (productive, green sputum), Shortness of breath (dyspneic when she was admitted) Cardiovascular: DENIES: Chest pain, Orthopnea Gastrointestinal: DENIES: Bloody stools, Constipation, Diarrhea, Vomiting Genitourinary: DENIES: Hematuria Musculoskeletal: DENIES: Joint pain, Neck pain Integumentary: DENIES: Rash Hematologic/Lymphatics: DENIES: Bruising Immunologic/Allergic: DENIES: Urticaria Neurologic: DENIES: Localized weakness, Seizures Psychiatric: COMPLAINS OF: Confusion, DENIES: Hallucinations, Agitation Past Family Social History Coded Allergies: No Known Allergies (Verified , 01/02/16) Past Medical History * Pneumonia/SIRS, resolving * Dementia, FAST scale = 5 * History of TIA * CAD, history of CHF * Neuropathy * Hypertension * Hyperlipidemia * Anemia * CKD * Osteoarthritis * Remote history of seizures . Past Surgical History * Aortic valve replacement (mechanical valve) * Appendectomy many years ago * Thyroid biopsy 2013 * Chest wall hematoma I&D August 2016 . Reported Medications Mirtazapine 7.5 Mg Tab 7.5 Mg PO HS Albuterol Neb (Albuterol Sulfate) 2.5 Mg/3 Ml Neb 2.5 Mg NEB Q4HR PRN 10 Days Warfarin 1 Mg Tab 1 Mg PO MON, WED, FRI Gabapentin 300 Mg Cap 300 Mg PO BID Keppra (Levetiracetam) 500 Mg Tab 500 Mg PO BID Coumadin (Warfarin) 2 Mg Tab 2 Mg PO DAILY@1600 . Current Medications Medications (Trade) Dose Ordered Sig/Deidre Route Start Time Stop Time Status Last Admin (NS Flush) 2 ml UNSCH PRN IV FLUSH 10/24/16 23:30 (NS Flush) 2 ml BID IV FLUSH 10/25/16 09:00 10/30/16 08:50 Naloxone HCl 0.4 mg 0.4 mg UNSCH PRN IV 10/24/16 23:30 (Levaquin 750 Mg Premix Inj) 150 ml @ 100 mls/hr Q24H IV 10/25/16 09:00 10/30/16 08:49 (Neurontin) 300 mg BID PO 10/25/16 09:00 10/30/16 08:48 (Keppra) 500 mg BID PO 10/25/16 09:00 10/30/16 08:48 Mirtazapine 7.5 mg 7.5 mg HS PO 10/25/16 21:00 10/29/16 20:24 (Coumadin Consult Pharmacy) 0 ml @ 0 mls/hr UNSCH OTHER 10/25/16 05:30 (Coumadin) 2 mg DAILY@1600 PO 10/27/16 16:00 Hold 10/28/16 16:00 (Zofran Inj) 4 mg Q6HR PRN IV PUSH 10/28/16 10:30 10/28/16 11:10 (Tylenol) 650 mg Q6H PRN PO 10/28/16 10:30 10/30/16 06:19 Family History The patient's father and mother both in their 80s, causes unknown to the patient and her sister. The patient's son has diabetes. . Substance Use Tobacco: None. Alcohol: None. Prescription med abuse: None. Illicits: None. . Psychosocial History The patient was born and raised in [facility] [place], and moved with her family to [place] when the patient was about 19 years old. She moved to [place] here about 10 years ago and has lived alone since then. She was in 1995, and she has one son and 2 grandchildren. . Spiritual/Cultural Factors The patient is a member of the [employer] locally, and says that the mechanical engineering manager has come to visit her in recent weeks. . Ethical and Legal Issues There are no ethical issues that would impact her care or decision-making at this time. The patient has a history of dementia, the cognitive evaluation (including SLUMS ) indicated significant dementia, and during my examination the patient demonstrated significant cognitive impairment (she could not name the day, month , year, name of hospital, President, her city, or her ZIP Code; she was unaware of any of her medical diagnoses). In addition, she lacks insight into any of her medical illnesses or the risk of living alone and falling again while on anticoagulants. I do NOT feel that the patient has capacity for medical decision-making. The decision making proxy would thus be her son Fred. . Physical Exam Vital Signs Date Time Temp Pulse Resp B/P Pulse Ox O2 Delivery O2 Flow Rate FiO2 10/30/16 10:49 Room Air 2.00 21 10/30/16 08:00 98.7 73 18 127/61 91 10/30/16 04:00 97.3 74 18 128/62 92 10/30/16 00:00 97.4 77 18 130/63 95 10/29/16 20:23 Room Air 10/29/16 20:23 72 10/29/16 20:00 97.9 71 18 110/56 93 10/29/16 16:00 98.3 84 20 114/59 94 10/29/16 12:00 97.7 81 22 97/55 96 10/29/16 10/30/16 19:00 07:00 Intake Total 754 ml 700 ml Balance 754 ml 700 ml Intake Oral 600 ml 700 ml IV Total 154 ml # Voids 2 6 # Bowel Movements 0 0 Exam CONSTITUTIONAL/GENERAL: This is an adequately nourished patient, in no apparent distress. TUBES/LINES/DRAINS: Peripheral IV SKIN: No jaundice, rashes, or lesions. Ecchymoses on upper extremities. No wounds seen anteriorly. Skin temperature appropriate. Not diaphoretic. HEAD: Atraumatic. Normocephalic. EYES: Pupils equal and round and reactive. Extraocular motions intact. No scleral icterus. No injection or drainage. Fundi not examined. ENT: Hearing grossly normal. Nose without bleeding or purulent drainage. Throat without visible erythema, exudates, masses, or lesions. NECK: Trachea midline. Supple, nontender. No palpable thyroid enlargement or nodularity. CARDIOVASCULAR: Regular rate and rhythm without gallop or rub. There is a grade 2 systolic murmur. No JVD. Peripheral pulses symmetric. RESPIRATORY/CHEST: Symmetric, unlabored respirations. There are couple rales at the left base. GASTROINTESTINAL: Abdomen soft, non-tender, nondistended. No hepato-splenomegaly , or palpable masses. No guarding. Bowel sounds present. GENITOURINARY: Without palpable bladder distension. Hemphill catheter in place. MUSCULOSKELETAL: Extremities without clubbing, cyanosis, or edema. No joint tenderness or effusion noted. No calf tenderness. No mottling or clubbing. LYMPHATICS: No palpable cervical or supraclavicular adenopathy. NEUROLOGICAL: Awake and alert. Motor and sensory grossly within normal limits. Follows commands. She cannot tell me the day, date, month, year, President, name of hospital, or any of her recent medical illnesses. Moves all extremities. PSYCHIATRIC: No obvious anxiety/depression. no apparent hallucinations or other psychotic thought process. . Diagnostic Tests Laboratory Laboratory Tests Test 10/28/16 10/29/16 10/30/16 06:35 05:43 06:50 Prothrombin Time 20.2 SEC 30.0 SEC 22.2 SEC (9.8-11.6) (9.8-11.6) (9.8-11.6) Prothromb Time International 1.8 RATIO 2.6 RATIO 2.0 RATIO Ratio Result Diagram: 10/26/16 0851 10/26/16 0851 Imaging Last Impressions Chest X-Ray 10/25/16 0000 Signed Impressions: Service Date/Time: October 05:57 - CONCLUSION: Cardiomegaly and bibasilar subsegmental atelectasis. Status post CABG. Arthur Lynn MD Patient/Family Conference Present at Family Conference: Patient's sister . Family Conference Time (mins): 36 Family Conference Location: Bedside Issues Discussed: * Palliative care role, purpose, approach * Additional medical, psychosocial, and spiritual history * Patients general health, functional status, and cognitive changes in the months leading up to the current hospitalization * Patient/family understanding of the current medical problems * Patient/family understanding of prognosis * Patients goals of care as best understood from advance directives and/or conversations and/or values * Current medical treatment options and benefits/burdens of those options * Likely scenarios comparing ongoing aggressive care with a transition to comfort measures only * Questions answered to the best of my ability * Palliative care contact information provided The patient and her sister confirmed that the patient wants to continue aggressive care. . Assessment and Plan Disease Oriented Problem List: (1) pneumonia/SIRS, resolving (2) dementia, FAST = 5 (3) CAD, history of CHF (4) neuropathy (5) history of TIA (6) CKD (7) osteoarthritis (8) hyperlipidemia (9) remote history of seizures (10) hypertension (11) anemia Symptom Scale: (1) confusion 0-10 Scale: 4 (consistent with moderate dementia) (2) dyspnea 0-10 Scale: 0 (resolved) Pertinent Non-Medical Issues Psychosocial: , has been living alone for several years, son and granddaughter live nearby. Spiritual: The patient is a member of the [employer] locally, and says that the mechanical engineering manager has come to visit her in recent weeks. Legal: The patient has a history of dementia, the cognitive evaluation ( including SLUMS) indicated significant dementia, and during my examination the patient demonstrated significant cognitive impairment (she could not name the day, month, year, name of hospital, President, her city, or her ZIP Code; she was unaware of any of her medical diagnoses). In addition, she lacks insight into any of her medical illnesses or the risk of living alone and falling again while on anticoagulants. I do NOT feel that the patient has capacity for medical decision-making. The decision making proxy would thus be her son Fred. Ethical issues impacting care: None . Important Contacts Son: Fred Loera [phone] Granddaughter: Iman Loera . Prognosis The patient has moderate dementia. She has had now 3 hospitalizations over the past year, including this the second one for pneumonia. Overall, she is declining, but I do not think she would be appropriate for hospice services yet if her goals were comfort oriented at this time. . Code Status: Full Code Plan * FULL CODE * DECISION-MAKING: The patient has a history of dementia, the cognitive evaluation (including SLUMS) indicated significant dementia, and during my examination the patient demonstrated significant cognitive impairment (she could not name the day, month, year, name of hospital, President, her city, or her ZIP Code; she was unaware of any of her medical diagnoses). In addition, she lacks insight into any of her medical illnesses or the risk of living alone and falling again while on anticoagulants. I do NOT feel that the patient has capacity for medical decision-making. The decision making proxy would thus be her son Fred. * GOALS: The patient's goals remain aggressive with respect to medical treatment. Her main goal at this point is to get back home, and she definitely does not want to go to a Rehab Center. * CONCERNS: I do not think it would be safe to discharge the patient to be home alone; I believe she needs either a family member or hired caregiver to be with her 04/02. * SYMPTOMS: Her dyspnea has resolved with treatment of the pneumonia/SIRS. Her confusion now is due to her dementia, and will not likely change significantly in the upcoming days. * Palliative Care will be available to see the patient while she is in the hospital if the need arises. . Time Spent Total Floor Time (mins): 76 Face to Face Time (mins): 49 >50% Counseling/Coord of Care: Yes (d/w Dr. Falcon) Thank you for the opportunity to participate in the care of Ms. Loera. Attestation To help prompt me to consider important information that might be impacting today's encounter and assessment, information from prior notes written by myself or my colleagues may have been "brought forward" into today's note. My signature on this note, however, is an attestation that I personally performed the exam, history, and/or decision-making noted today, and, unless otherwise indicated, the interactions with patient, family, and staff as well as the review of records all occurred today. I also attest that the listed assessment and stated plan reflect my best clinical judgment today based on the combination of historical information, prior notes, and today's exam/ interactions. When time spent is documented, it refers only to time spent today by the signer, or if indicated, combined time spent today by collaborating physician/nurse practitioner. Sonya Faria MD Oct 30, 2016 11:51
--- NOTE | 2016-10-30 14:33 | HHI.FF ---
Face to Face Verification Diagnosis: (1) History of mechanical aortic valve replacement (2) anemia (3) Dementia (4) Pneumonia Physical Therapy Order: Evaluate and Treat Occupational Therapy Order: Improve ADL Home Health Nursing Order: Medication education-adverse effect Nursing assessment with vital signs Family And Divorce Legal Assistant Order: To Evaluate: Living conditions/environment, Support services Order: To Provide: Long range planning, Community services I have seen patient Lelia Loera on 10/30/16. My clinical findings support the need for the requested home health care services because: Deconditioned w/ increased weakness Med compliance is questionable Limited ability to care for self Need for psychosocial assistance Impaired cognition/judgement High risk of falls I certify that my clinical findings support that this patient is homebound because: Impaired cognitive ability/safety Unsafe to leave home unassisted Need for psychosocial assistance Shila Falcon MD Oct 30, 2016 14:33
[2016-10-30] MEDS: WARFARIN SOD 2 MG TAB PO SCH (16:55)
--- NOTE | 2016-10-30 18:45 | HHI.PR ---
Subjective Remarks Late entry - pt seen this a.m. Wants to go home. Objective Vitals Vital Signs Date Time Temp Pulse Resp B/P Pulse Ox O2 Delivery O2 Flow Rate FiO2 10/30/16 16:00 97.7 77 18 115/57 95 10/30/16 12:00 97.1 89 18 110/56 97 10/30/16 10:49 Room Air 2.00 21 10/30/16 09:00 86 10/30/16 08:00 98.7 73 18 127/61 91 10/30/16 04:00 97.3 74 18 128/62 92 10/30/16 00:00 97.4 77 18 130/63 95 10/29/16 20:23 Room Air 10/29/16 20:23 72 10/29/16 20:00 97.9 71 18 110/56 93 I/O 10/29/16 10/29/16 10/29/16 10/30/16 10/30/16 10/30/16 07:00 15:00 23:00 07:00 15:00 23:00 Intake Total 220 ml 754 ml 360 ml 340 ml 360 ml Output Total 450 ml Balance -230 ml 754 ml 360 ml 340 ml 360 ml Intake Oral 220 ml 600 ml 360 ml 340 ml 360 ml IV Total 154 ml Output Urine Total 450 ml # Voids 2 2 4 2 # Bowel Movements 0 0 0 0 1 Result Diagram: 10/26/1651 10/26/16850 Objective Remarks GENERAL: Well-nourished, well-developed pleasant but mildly confused elderly female patient. SKIN: Warm and dry. HEAD: Normocephalic. EYES: No scleral icterus. No injection or drainage. NECK: Supple, trachea midline. No JVD or lymphadenopathy. CARDIOVASCULAR: Regular rate and rhythm without murmurs, gallops, or rubs. RESPIRATORY: Breath sounds equal and CTA bilaterally. No accessory muscle use. GASTROINTESTINAL: Abdomen soft, non-tender, nondistended. EXTREMITIES: No cyanosis, or edema. NEUROLOGICAL: Awake, alert, and oriented to self only. Non-focal. A/P Problem List: (1) SIRS (systemic inflammatory response syndrome) ICD Code: R65.10 Status: Acute (2) Hypoxemia ICD Code: R09.02 Status: Acute (3) Generalized weakness ICD Code: R53.1 Status: Acute (4) History of mechanical aortic valve replacement ICD Code: Z95.2 Status: Chronic (5) Dementia ICD Code: F03.90 Status: Acute Assessment and Plan Ms. Loera is an 85-year-old female with history of aortic mechanical valve replacement on Coumadin- INR subtherapeutic on admission, hx TIA, diastolic congestive heart failure, hyperlipidemia, seizure disorder and CAD who presented to the ED with complaint of fever and productive cough x 3 days. Sepsis secondary to pneumonia: (leukocytosis, WBCs initially 16.4, now WNL 9.6 bandemia, neutrophils 75.9%; tachycardia; chest x-ray report reviewed, no acute cardio pulmonary disease demonstrated, cardiomegaly and bibasilar subsegmental atelectasis; fever 99.9, initially). resolved. - Rocephin and azithromycin given in ED - Finished Levaquin 500 mg IV daily x 7 days. - Continue duonebs scheduled and PRN - Influenza nasal washing negative. UA reviewed, negative. - BC NGTD - Incentive spirometry Acute respiratory failure secondary to above previously on home O2 - O2 via nasal cannula to keep sats > 92% - Home walk test ordered and assessed: started at 86% O2 sats on room air. - O2 sats improved after resuming on NC. Case management consulted to resume home oxygen. Atypical chest discomfort, sounds pleuritic, reproducible to palpation -Checked troponins 2, within normal limits -Checked EKG, reviewed, no ischemic changes - Continue treatment for pneumonia as above Chronic diastolic congestive heart failure. - Chest x-ray showed cardiomegaly and bibasilar subsegmental atelectasis noted. - Echocardiogram 08/31 showed grade I diastolic CHF - Lasix was given in the ED, BNP was not elevated - Currently normotensive and appears euvolemic. Mechanical aortic valve replacement history, on Coumadin subtherapeutic INR - INR 2.0 today therapeutic - Will continue Coumadin with pharmacy to dose. DC lovenox. - Patient is unable to tell me who her PCP is due to her dementia Malaise, generalized weakness with recently oral intake: likely secondary to acute infection as above - PT consulted, recommended HHC. Supposedly patient is still weak with pivoting and transferring. - Did have nausea and vomiting today. Zofran PRN. - Encourage PO intake. Added chocolate ensure TID to each tray. Poor PO intake. Normocytic anemia likely dilutional secondary to IVF bolus in ED - Initial HH normal, stable. - No signs of acute bleed. Continue to monitor. Other chronic medical conditions noted and stable at this time: Seizure disorder , continued Keppra and gabapentin; osteoarthritis, hyperlipidemia, CAD. Dementia - severe - as per ST cognitive evaluation. I do not believe the patient has capacity to manage her chronic medical conditions, and clearly cannot be discharged back to her home environment without 24 hr supervision for assistance with ADLs. Appreciate 2nd opinion on capacity from palliative care, discussed with Dr. Faria. DVT Prophylaxis: SCDs Discharge Planning DC home once family arranges 24 hr care. D/w CM. Called son at phone number left, no answer, left message. Shila Falcon MD Oct 30, 2016 18:45
[2016-10-30] MEDS: MIRTAZAPINE 15 MG TAB PO SCH (20:16)
[2016-10-31] VITALS: BP 126/58; PULSE 72; RESP 16; TEMP 97.2; O2SAT 94
[2016-10-31 02:21] VITALS: PULSE 90
[2016-10-31 04:00] VITALS: BP 122/56; PULSE 65; RESP 16; TEMP 97.5; O2SAT 92
[2016-10-31 07:18] LABS: INTERNATIONAL NORMALIZED RATIO 1.9 RATIO; PROTHROMBIN TIME - PATIENT 21.9 SEC (9.8-11.6)
[2016-10-31 08:00] VITALS: BP 129/66; PULSE 72; RESP 18; TEMP 98.4; O2SAT 92
[2016-10-31 09:00] VITALS: PULSE 69
[2016-10-31] MEDS: SODIUM CHLORIDE 0.9% FLUSH 10 ML FLUSH IV FLUSH SCH (09:00)
[2016-10-31] MEDS: GABAPENTIN 300 MG CAP PO SCH (09:22)
[2016-10-31] MEDS: ACETAMINOPHEN 325 MG TAB PO PRN (09:22)
[2016-10-31] MEDS: levETIRAcetam 500 MG TAB PO SCH (09:22)
--- NOTE | 2016-10-31 12:26 | HHI.DS ---
cc: Dr. Lopez Discharge Summary Admission Date Oct 25, 2016 at 17:22 Discharge Date: Oct 31, 2016 Admitting Diagnosis hypoxia, cough, SIRS (1) Pneumonia ICD Code: J18.9 Diagnosis: Principal (2) SIRS (systemic inflammatory response syndrome) ICD Code: R65.10 Diagnosis: Principal (3) Hypoxemia ICD Code: R09.02 Diagnosis: Secondary (4) Generalized weakness ICD Code: R53.1 Diagnosis: Secondary (5) History of mechanical aortic valve replacement ICD Code: Z95.2 Diagnosis: Secondary (6) Dementia ICD Code: F03.90 Diagnosis: Secondary (7) Subtherapeutic international normalized ratio (INR) ICD Code: R79.1 Diagnosis: Secondary Procedures None. Brief History - From Admission This is an 85-year-old female with history of aortic mechanical valve replacement on Coumadin- INR today 1.1, TIA, osteoarthritis, diastolic congestive heart failure, hyperlipidemia, seizure disorder and CAD. Patient was brought in by brought in by her [id number] for evaluation of fever, cough productive of greenish sputum x 3 days. Patient also has associated generalized weakness, generalized malaise, poor appetite and poor PO intake. Symptoms have been going on for last 3 days without any improvement. Patient is a poor history only able to provide limited information therefore information gathered from patient as well as prior charting. Patient denies shortness of breath, chest pain, abdominal pain Of note: Patient is ill appears with frequent productive cough Significant Findings Laboratory Tests Test 10/29/16 10/30/16 10/31/16 05:43 06:50 05:45 Prothrombin Time 30.0 SEC 22.2 SEC 21.9 SEC (9.8-11.6) (9.8-11.6) (9.8-11.6) Imaging Last Impressions Chest X-Ray 10/25/16 0000 Signed Impressions: Service Date/Time: October 05:57 - CONCLUSION: Cardiomegaly and bibasilar subsegmental atelectasis. Status post CABG. Arthur Lynn MD PE at Discharge GENERAL: Well-nourished, well-developed pleasant but mildly confused elderly female patient. SKIN: Warm and dry. HEAD: Normocephalic. EYES: No scleral icterus. No injection or drainage. NECK: Supple, trachea midline. No JVD or lymphadenopathy. CARDIOVASCULAR: Regular rate and rhythm without murmurs, gallops, or rubs. RESPIRATORY: Breath sounds equal and CTA bilaterally. No accessory muscle use. GASTROINTESTINAL: Abdomen soft, non-tender, nondistended. EXTREMITIES: No cyanosis, or edema. NEUROLOGICAL: Awake, alert, and oriented to self only. Non-focal. Pt update on day of arch cushion press operator reports the patient wants to go home and family is at bedside who would like to sign her out. Initially went to the room this morning however no family present. Returned today around noon, patient's son has arrived, discussed extensively with him. The patient's son reports that they have had problems recently with her dementia and mental status decline. Earlier this year in August 2016 the patient was hospitalized for supratherapeutic INR and hematoma after a fall. The patient's son reports that they were unsure if the patient was always taking her Coumadin at 4:00pm, therefore they would give her a dose and make sure she swallowed it. The patient's son also made statements that Coumadin is "rat poison" and that he thinks that 30 years of Coumadin is effecting her entire body. However, he verbalized understanding that the patient needs to be on Coumadin because of her metallic valve and will continue to ensure that the patient takes this. He states her primary care physician is Dr. Lopez and they will plan to follow-up with him as soon as she is discharge. The son also did confirm that the patient lives with him, as well as his daughter who is on house arrest and 2year old grandchild. He states that she will have 24hr supervision at home. Also the patient's sisters have flew in from [place] to help him at home. Hospital Course Ms. Loera is an 85-year-old female with history of aortic mechanical valve replacement on Coumadin- INR subtherapeutic on admission, hx TIA, diastolic congestive heart failure, hyperlipidemia, seizure disorder and CAD who presented to the ED with complaint of fever and productive cough x 3 days. Sepsis secondary to pneumonia: (leukocytosis, WBCs initially 16.4, now WNL 9.6 bandemia, neutrophils 75.9%; tachycardia; chest x-ray report reviewed, no acute cardio pulmonary disease demonstrated, cardiomegaly and bibasilar subsegmental atelectasis; fever 99.9, initially). Influenza nasal washing negative. UA reviewed, negative. BC NGTD Rocephin and azithromycin given in ED. Finished Levaquin 500 mg IV daily x 7 days. Given duonebs scheduled and PRN. Resolved. Acute respiratory failure secondary to above previously on home O2: Given O2 via nasal cannula to keep sats > 92%. Home walk test ordered and assessed: started at 86% O2 sats on room air. O2 sats improved after resuming on NC. Case management consulted to resume home oxygen. Atypical chest discomfort, sounds pleuritic, reproducible to palpation. Checked troponins 2, within normal limits. Checked EKG, reviewed, no ischemic changes.Resolved. Chronic diastolic congestive heart failure: Chest x-ray showed cardiomegaly and bibasilar subsegmental atelectasis noted. Echocardiogram 08/31 showed grade I diastolic CHF. Lasix was given in the ED, BNP was not elevated. Currently normotensive and appears euvolemic. Mechanical aortic valve replacement history, on Coumadin subtherapeutic INR. Given additional doses of Coumadin with Lovenox, pharmacy consulted. INR now 2.[address] Lopez follows her INR. Malaise, generalized weakness with recently oral intake: likely secondary to acute infection as above. PT consulted, recommended HHC. Supposedly patient is still weak with pivoting and transferring. Encourage PO intake. Added chocolate ensure TID to each tray. Intake improved with help feeding from family. Normocytic anemia likely dilutional secondary to IVF bolus in ED. Initial HH normal, stable. No signs of acute bleed. Other chronic medical conditions noted and stable at this time: Seizure disorder , continued Keppra and gabapentin; osteoarthritis, hyperlipidemia, CAD. Dementia - severe - as per ST cognitive evaluation. I do not believe the patient has capacity to manage her chronic medical conditions, and clearly cannot be discharged back to her home environment without 24 hr supervision for assistance with ADLs. Appreciate 2nd opinion on capacity from palliative care, discussed with Dr. Faria who agrees patient does not have capacity. Thoroughly discussed concern for safety at home with the patient's son (see Pt Update on Day of Discharge above), he states patient will have 24hr supervision at home and will ensure patient is taking all of her medications as prescribed. DVT Prophylaxis: SCDs Written by Edyta Trinidad, acting as scribe for Dr. Falcon on 10/31/16 at 12: 26. Pt Condition on Discharge: Stable Discharge Disposition: Disch w/ Home Health Serv Discharge Time: > 30 minutes Discharge Instructions DIET: Follow Instructions for: Heart Healthy Diet, Coumadin (Warfarin) Diet Follow up Referrals: PCP Follow-up - 2-3 Days with [employer] New Orders: PT/INR - 2-3 Days New Medications: Albuterol 8.5 GM Inh (Proair Hfa 8.5 GM Inh) 90 Mcg/Act Aer 2 PUFF INH Q4-6H 108 mcg/actuation PRN SHORTNESS OF BREATH #1 Ref 0 INHALER Oxygen tank (Oxygen tank) 1 Ea Tank 2 LITER JAI.CANULA CONTINUOUS Oxygen Concentrator Portable Gaseous 2 L/min via Nasal Cannula Continuous For 99 months HYPOXEMIA PREVENTION #2 CYLINDER Walker with Front Wheels (Walker with Front Wheels) 1 Mis Mis 1 EA .ROUTE DIRECTED #1 Ref 0 EA Warfarin (Coumadin) 2 Mg Tab 2 MG PO DAILY@1600 Blood Clot Prevention #20 TAB Continued Medications: Albuterol Neb (Albuterol Neb) 2.5 Mg/3 Ml Neb 2.5 MG NEB Q4HR PRN DYSPNEA Days 10 Ref 0 NEBULE Gabapentin (Gabapentin) 300 Mg Cap 300 MG PO BID #60 Ref 0 CAP Levetiracetam (Keppra) 500 Mg Tab 500 MG PO BID Control Seizures #60 Ref 0 TAB Mirtazapine (Mirtazapine) 7.5 Mg Tab 7.5 MG PO HS Depression Control #30 Ref 0 TAB Discontinued Medications: Warfarin (Coumadin) 2 Mg Tab 2 MG PO DAILY@1600 Prevent Blood Clot #30 Ref 0 TAB Warfarin (Warfarin) 1 Mg Tab 1 MG PO mon, wed, fri Blood Clot Prevention #30 Ref 0 TAB Medical Decision Making MDM Remarks This note was transcribed by scribe. I, Dr. Shila Falcon personally performed the history, physical exam, and medical decision making; and confirmed the accuracy of the information in the transcribed note. Edyta Trinidad PA-C Oct 31, 2016 12:26 Shila Falcon MD November 13, 2016 10:45
[2016-10-31] MEDS ORDERED: WARFARIN SOD 1 MG TAB PO SCH (16:00)
== END 2016-10-31 12:54 | disposition home health service (06) | DRG 871 ==
LOC: NEPC 20:02 → NEDA 22:49 → NEPGCP 10-25 01:54 → OBSVTOIN 10-25 17:22 → N04B 10-26 16:20
PROVIDERS: ADMIT Family Medicine; ATTEND Family Medicine
DX: A41.9 Sepsis, unspecified organism (principal); J18.9 Pneumonia, unspecified organism; J96.01 Acute respiratory failure with hypoxia; I50.32 Chronic diastolic (congestive) heart failure; Z99.81 Dependence on supplemental oxygen; D64.9 Anemia, unspecified; F03.90 Unspecified dementia, unspecified severity, without behavioral disturbance, psychotic disturbance, mood disturbance, and anxiety; Z95.1 Presence of aortocoronary bypass graft; R53.1 Weakness; Z95.2 Presence of prosthetic heart valve; R79.1 Abnormal coagulation profile; Z79.01 Long term (current) use of anticoagulants; G40.909 Epilepsy, unspecified, not intractable, without status epilepticus; M19.90 Unspecified osteoarthritis, unspecified site; I25.10 Atherosclerotic heart disease of native coronary artery without angina pectoris; E78.5 Hyperlipidemia, unspecified; Z86.73 Personal history of transient ischemic attack (TIA), and cerebral infarction without residual deficits
CPT/HCPCS: 71010; 80048; 80053; 81001; 83605; 83880; 84484; 85025; 85610; 85730; 87040; 87086; 87804; 93005; 94150; 94620; 94640; 94664; 96365; 96374; 96375; G0378; G8987-GP; G8988-GP; J0456; J0696; J1650; J1940; J1956; J2405; J7030; J7050; P9612